=== PATIENT | female | born 1975 ===

== ENCOUNTER 2020-09-07 08:11 | Emergency (ER) | payer MEDICAID, SELFPAY ==
--- NOTE | ~2020-09-07 | XR_ITS ---
EXAMINATION: XR HAND, LEFT CLINICAL INFORMATION: Crush injury. COMPARISON: None TECHNIQUE: PA, lateral, and oblique views of the left hand. FINDINGS: Nondisplaced transverse fracture through the tuft of the distal phalanx second finger. There is soft tissue swelling. Underlying mild age-appropriate degenerative osteoarthritic changes of interphalangeal joints. XR/XR hand LT min 3V IMPRESSION: Nondisplaced hairline fracture of the distal tuft of the distal phalanx second finger. Surrounding soft tissue swelling.
[2020-09-07 08:56] VITALS: BP 124/71; PULSE 80; RESP 17; TEMP 36.5; O2SAT 98; BMI 25.0
--- NOTE | 2020-09-07 09:25 | ED_ITS ---
HPI - Extremity Problem General Chief complaint: Extremity Injury, Upper Stated complaint: FINGER INJ Time Seen by Provider: 09/07/20 08:21 Source: patient Mode of arrival: ambulatory Limitations: no limitations History of Present Illness HPI Narrative: States excellent jammed the distal 2nd finger of the left hand into her car door. Having slight swelling and pain at the tip of the finger. No open skin or laceration. This occurred yesterday at home. MD Complaint: extremity pain Location: left Relieving factors: immobilization Exacerbating factors: palpation Related Data Previous Rx's Medication Instructions Recorded ibuprofen 800 mg PO Q8H PRN #14 tab 09/07/20 Allergies Allergy/AdvReac Type Severity Reaction Status Date / Time Iodinated Contrast Media Allergy Intermediate RASH Verified 09/07/20 08:59 [IV CONTRAST] pollen extracts [POLLEN] Allergy Unknown ITCHY, Unverified 04/17/20 17:02 WATERY EYES, SNEEZING Review of Systems Review of Systems: Constitutional: No Weight loss, No Fever, No Chills, No Night Sweats, No Fatigue, No Malaise ENT/Mouth: No Hearing loss, No Ear Pain, No Nasal Congestion, No Sinus Pain, No Hoarseness, No sore throat, No Rhinorrhea, No Swallowing Difficulty Eyes: Negative Cardiovascular: Negative Respiratory: Negative Musculoskeletal: No joint pain, No Myalgias, No Joint Swelling, as noted per HPI Skin: No Skin Lesions, No rash Neuro: Negative Psych: No Social Issues Heme/Lymph: Negative Endocrine: Negative Yes all other systems are reviewed and are negative [facility] Past Medical History Medical History (Updated 09/07/20 @ 09:27 by Ga Romeo NP) Asthma Social History Social History Advance Directives: No Advance Directives Information Provided: No Physical Exam Vital Signs: Vital Signs: Last Vital Signs Temp 97.7 F 09/07/20 08:56 Pulse 80 09/07/20 08:56 Resp 17 09/07/20 08:56 BP 124/71 09/07/20 08:56 Pulse Ox 98 09/07/20 08:56 Body Mass Index 25.0 Reviewed Const: General: cooperative and healthy appearing; No acute distress or intoxicated appearing Nutritional Appearance: average body habitus Gabo entation/consciousness: patient oriented x3 Chest: Chest palpation & inspection: normal inspection of the chest Resp: Effort & Inspection: normal respiratory effort Auscultation: clear to auscultation bilaterally Cardio: Jugular venous distension: no JVD Rhythm: regular rhythm Heart sounds: S1 normal heart sound present and S2 normal heart sound present Skin: General skin exam: no rashes or lesions noted Neuro: General: patient oriented x3 Extrem: General: Yes normal to inspection Hand/finger images: 1. Slight ecchymosis to the dorsum and the palmar aspect of the finger. No open skin. No nail hematoma. Neurovascular intact. Cap refill less than 2 seconds. Full range of motion. Course Course Course Narrative: Finger splint applied MDM - Extremity (Nontraumatic) Imaging Data Hand x-ray: Radiologist's impression: [address] [id number] ReportSigned Patient: Alena Napier JMR#: [id number]: [id number]:[id number]/Sex: 45 / FADM Date: 09/07/20Loc: HO.EDAttending Dr: Ordering Physician: Suze Bedoya DO Date of Service: 09/07/20 Procedure(s): XR hand LT min 3V Accession Number(s): [id number] cc: Suze Bedoya DO~ EXAMINATION: XR HAND, LEFT CLINICAL INFORMATION: Crush injury. COMPARISON: None TECHNIQUE: PA, lateral, and oblique views of the left hand. FINDINGS: Nondisplaced transverse fracture through the tuft of the distal phalanx second finger. There is soft tissue swelling. Underlying mild age-appropriate degenerative osteoarthritic changes of interphalangeal joints. XR/XR hand LT min 3V IMPRESSION: Nondisplaced hairline fracture of the distal tuft of the distal phalanx second finger. Surrounding soft tissue swelling. Dictated By:TONE SOUZA MDSigned By:<Electronically signed by TONE SOUZA MD in OV>09/07/2056 DD/ 0TD/TT: Real Estate Administrator: Discharge Plan Discharge Clinical Impression: Closed fracture of tuft of distal phalanx of finger Patient Disposition: Home, Self-Care Instructions: Finger Fracture (ED) Additional Instructions: You have a small fracture to the bone directly to underneath the nail (distal toe off hairline fracture nondisplaced closed) Use finger splint for comfort for the next 2 weeks Follow-up with the hand doctor as discussed Return if any concerns or worsening symptoms Thank you Prescriptions: New ibuprofen 800 mg tablet 800 mg PO Q8H PRN (Reason: pain) Qty: 14 RF: 0 Referrals: [facility] [Primary Care Provider] - 1 week Merlyn Varela MD [Physician] - 1 week
== END 2020-09-07 09:38 | disposition home or self-care (01) ==
PROVIDERS: Emergency Provider Emergency Medicine
DX: S62.661A Nondisplaced fracture of distal phalanx of left index finger, initial encounter for closed fracture (principal); W23.1XXA Caught, crushed, jammed, or pinched between stationary objects, initial encounter; Y93.89 Activity, other specified; Y92.810 Car as the place of occurrence of the external cause; Y99.9 Unspecified external cause status
CPT/HCPCS: 29130; 73130; 99283

== ENCOUNTER 2020-11-12 07:29 | Emergency (ER) | payer MEDICAID, SELFPAY ==
--- NOTE | ~2020-11-12 | XR_ITS ---
EXAMINATION: XR CHEST CLINICAL INFORMATION: Cough, wheezing, asthma exacerbation COMPARISON: Chest radiographs 05/16/2019, 04/12/2019 TECHNIQUE: Portable upright AP view of the chest was obtained. FINDINGS: Patient is slightly rotated. There is no hyperinflation, pneumothorax, or pneumomediastinum. There is no lobar segmental airspace consolidation. Subtle coarsening of the bronchiolar markings is seen, greater right perihilar region. There is no lobar or segmental airspace consolidation or effusion. The heart is normal in size. The vascularity is normal. XR/XR chest 1V IMPRESSION: Coarsening bronchiolar markings greater right perihilar region. No lobar or segmental airspace consolidation or effusion.
[2020-11-12 09:27] VITALS: BP 155/95; PULSE 101; RESP 16; TEMP 36.5; O2SAT 99; BMI 26.6
--- NOTE | 2020-11-12 09:45 | ECG_ITS ---
Test Reason : DYSPNEA Blood Pressure : / mmHG Vent. Rate : 079 BPM Atrial Rate : 079 BPM P-R Int : 116 ms QRS Dur : 084 ms QT Int : 396 ms P-R-T Axes : 022 066 050 degrees QTc Int : 454 ms Normal sinus rhythm Normal ECG When compared with ECG of 21-JUL-2014 13:58, No significant change was found Referred By: Radha Scruggs Electronically Signed By:RENAN ANDERSEN
[2020-11-12 10:07] LABS: COVID-19 Test Negative (Negative); IDNOW Serial# 9DD0AD1C
[2020-11-12 10:13] LABS: MANUAL DIFF FLAG NO
[2020-11-12 10:15] LABS: Basophils Percent Auto 0.3 % (0-2); Eosinophils Absolute Auto 0.5 X10*3/uL (0.0-0.4); Eosinophils Percent Auto 5.8 % (0-4); Hematocrit 40.5 % (37-47); Hemoglobin 12.9 g/dl (12.0-16.0); Imm Gran Abs Auto 0.02 X10*3/uL (0.00-0.03); Imm Gran Pct Auto 0.3 % (0.0-0.4); Lymphocytes Percent Auto 26.1 % (20-40); Mean Corpuscular HGB Conc 31.9 g/dl (31.0-35.0); Mean Corpuscular Hemoglobin 29.3 pg (27.0-33.0); Mean Corpuscular Volume 91.8 fL (80-98); Mean Platelet Volume 10.1 fL (9.4-12.3); Monocytes Absolute Auto 0.5 X10*3/uL (0.1-1.2); Monocytes Percent Auto 6.8 % (2-11); Neutrophils Absolute Auto 4.7 X10*3/uL (2.0-8.3); Neutrophils Percent Auto 60.7 % (45-73); Platelet Count 284 X10*3/uL (160-400); Red Blood Count 4.41 X10*6/uL (4.20-5.50); Red Cell Distribution Width 13.2 % (11.0-16.0); White Blood Count 7.7 X10*3/uL (4.8-10.8)
[2020-11-12 10:21] LABS: Prothrombin Time 12.2 SEC (10.8-13.0)
[2020-11-12] MEDS: methylPREDNISolone Sod Succ 125 MG/2 ML VIAL IVPUSH (10:34)
[2020-11-12] MEDS: 0.9 % Sodium Chloride 1,000 ML 999 ML IVCONT (10:35)
[2020-11-12] MEDS: diphenhydrAMINE HCL 50 MG/ML VIAL IVPUSH (10:40)
[2020-11-12 10:43] LABS: Alanine Aminotransferase 13 U/L (0-31); Albumin Level 4.1 g/dL (3.5-5.0); Alkaline Phosphatase 68 U/L (39-117); Anion Gap 11 (12-20); Aspartate Amino Transferase 17 U/L (5-31); Bilirubin Total 0.6 mg/dL (0.0-1.0); Blood Urea Nitrogen 8 mg/dL (9-16); Calcium 8.7 mg/dL (8.4-10.2); Carbon Dioxide 26 mmol/L (22-29); Chloride 106 mmol/L (96-108); Creatinine Clr Calc Pharmacy 103.4; Estimated Glomerular Filt Rate > 60; Glucose Random 85 mg/dL (60-115); Potassium 3.8 mmol/L (3.3-5.1); Sodium 139 mmol/L (135-145); Total Protein 7.2 g/dL (6.5-8.0)
[2020-11-12 10:50] VITALS: BP 154/76; PULSE 99; RESP 22; O2SAT 100
--- NOTE | 2020-11-12 10:50 | PC.NURSE ---
pt very anxious, hives oberved to bilat cheeks when brought into room 21. pt refused remainder of benedryl, and any other meds. provider at bedside speaking with patient.
[2020-11-12] MEDS: Albuterol Sulfate (0.083%) 2.5 MG/3 ML VIAL.NEB 10 MG INHALE (11:03)
[2020-11-12] MEDS: Magnesium Sulfate/H2O 2 GM/50 ML PIGGYBACK IV (11:05)
[2020-11-12] MEDS: ondansetron HCL 4 MG/2 ML VIAL IVPUSH (11:06)
[2020-11-12 11:07] VITALS: PULSE 84; O2SAT 100
--- NOTE | 2020-11-12 11:10 | PC.NURSE ---
SOLUMEDROL 125MG ADMINISTERED APPROX. 3 MINUTES AFTER ADMINISTRATION +RED BLOTCHES APPEARED ON FACE AND PT C/O NAUSEA, 0.9% NS 1000 INFUSING WIDE OPEN, NO INCREASE IN RESPIRATORY EFFORT, SANDRA IBARRA UPDATED, DR RODRIGUEZ AT BEDSIDE, BENADRYL TO BE GIVEN, APPROX. 1/2 MED IV PUSH PT BECAME AGITATED STATED FELT LIKE SHE NEEDED TO PASS OUT, INCREASED NAUSEA, TRANSPORTED VIA WC TO MAIN ED RM 21, PT REFUSED FURTHER MEDS AT PRESENT TIME, REPORT TO VENKATESH HOPKINS
[2020-11-12 11:16] VITALS: BP 148/76; PULSE 77; RESP 18; O2SAT 100
--- NOTE | 2020-11-12 11:16 | PC.NURSE ---
extensive pt teaching done regarding epi, zofran, and mag. pt agrees to zofran and mag at this time. pt continues to refuse epi.
--- NOTE | 2020-11-12 12:02 | ED.ASTHMA ---
HPI - Asthma General Chief Complaint: Asthma Stated Complaint: ASTHMA Time Seen by Provider: 11/12/20 09:32 Source: patient Mode of arrival: ambulatory Limitations: no limitations History of Present Illness HPI Narrative: 45-year-old female With a past medical history of asthma, anxiety, depression and bipolar presenting to the ED with complaints of a dry cough with wheezing and chest tightness for the past week worse today. Reports that she was seen approximately 1 month ago by her PCP and was prescribed antibiotics and a course of steroids and she did improve mildly but never completely got better. Reports she has never been intubated. Denies any recent travel or sick contacts or any other symptoms complaints or concerns at this time. Patient reports she received 2 COVID vaccines and her last vaccine was October 13. complaint: asthma attack , shortness of breath and wheezing Onset (ago): week(s) (1 week worse today) Severity: severe and worse than usual Context: none known Associated symptoms: dry cough Asthma History: childhood onset and history of frequent attacks Treatments Prior to Arrival: inhaled bronchodilator Related Data Current Asthma Therapy: inhaled bronchodilator and recent oral steroid Previous Rx's Medication Instructions Recorded ibuprofen 800 mg PO Q8H PRN #14 tab 09/07/20 albuterol sulfate 0.63 mg INHALATION QID PRN #75 ml 11/12/20 albuterol sulfate 1 inh INHALATION QID PRN #8.5 g 11/12/20 azithromycin See Rx Instructions .ROUTE 11/12/20 .COMPLEX #6 tab codeine-guaifenesin [Guaifenesin 5 ml PO Q6H PRN #120 ml 11/12/20 AC] doxycycline monohydrate 100 mg PO BID 10 Days #20 cap 11/12/20 prednisone 60 mg PO DAILY 5 Days #15 tab 11/12/20 Allergies Allergy/AdvReac Type Severity Reaction Status Date / Time methylprednisolone Allergy Severe Hives Verified 11/12/20 12:17 [From Solu-Medrol] Iodinated Contrast Media Allergy Intermediate RASH Verified 09/07/20 08:59 [IV CONTRAST] pollen extracts [POLLEN] Allergy Unknown ITCHY, Unverified 04/17/20 17:02 WATERY EYES, SNEEZING Review of Systems Review of Systems: Constitutional : denies med noncompliance, no history of PE or DVT, denies recent travel, No Fever, No Chills ENT/Mouth : No Hoarseness, No sore throat, No Rhinorrhea Eyes: No Redness, No Discharge, No Vision Changes Cardiovascular : No Chest Pain, No SOB, No Dyspnea on Exertion, No Edema, no pleurisy, Respiratory : + Cough, + Wheeezing, No Sputum, no stridor, no hemoptysis, Gastrointestinal : No Nausea, No Vomiting, No Diarrhea, No abdominal Pain Genitourinary : No Dysuria, No Hematuria Musculoskeletal : No joint pain, No Myalgias Extremities: no extremity swelling /pain Skin : No rash, no itching, no swelling Neuro : No Weakness, No Numbness, No Headache Psych : No anxiety, depression Heme/Lymph: No Bruising, No Bleeding Endocrine : No Polyuria, No Polydipsia Yes all other systems are reviewed and are negative [facility] Past Medical History Attestation statement: The following information was validated with the patient. Medical History Asthma Surgical History Delivery by section Social History Social History Smoked in Last 30 Days: No Use of substances other than those prescribed or required for medical reasons: No Advance Directives: Yes Advance Directives Information Provided: Yes Advance Directives on File: No Physical Exam Vital Signs: Vital Signs: Last Vital Signs Temp 97.7 F 11/12/20 09:27 Pulse 77 11/12/20 11:16 Resp 18 11/12/20 11:16 BP 148/76 H 11/12/20 11:16 Pulse Ox 100 11/12/20 11:16 Body Mass Index 26.6 vital signs have been reviewed as normal and appeared to be correct. Blood pressure normal. Heart rate normal. Respiration rate normal. Temperature normal. Oxygen saturation normal. Appearance: Alert. Oriented X3. In acute respiratory distress. Head: Normal external exam. Normocephalic. Atraumatic. Eyes: PERRLA. EOMI. Conjunctiva and sclera normal. Eyelids normal. ENT: EAC normal. TM's Normal. Pharynx normal. Uvula midline. Moist mucous membranes. No trismus noted. No drooling noted. No muffled voice noted. Neck: Normal inspection. Neck supple. FROM. No adenopathy. Thyroid Normal. No meningeal signs. No neck mass noted. CVS: Normal heart rate and rhythm. Heart sound normal. No murmurs noted. Pulses normal throughout. Respiratory: In acute respiratory distress with decreased breath sounds with wheezes anterior and posterior noted throughout diffusely. No rhonchi/rales noted. Patient noted to have accessory muscle usage in tracheal tugging. No retractions noted. Patient states pain with inspiration. Chest nontender. Abdomen: Soft and nontender. Bowel sounds normal in all 4 quadrants. No distention noted. No organomegaly noted. No visible injury noted. Back: Full range of motion noted. Skin: Skin warm and dry. Normal skin color. Normal skin turgor. No rashes/lesions/lacerations noted. Extremities: No lower extremity edema. No calf tenderness noted bilaterally. Extremities exhibit normal range of motion. Extremities nontender. Neuro: Oriented X 3. No motor deficit. No sensory deficit. Reflexes normal. Course Course Course Narrative: 12:15pm - Patient was given 125 mg of IV Solu-Medrol after her labs were obtained and she developed hives/welts all over her face. Therefore she was transferred to the main ED and placed on a classroom monitor and she was given 50 mg of Benadryl, 4 mg of Zofran and 2 mg of magnesium and she received the albuterol treatment although she refused the epi. - At this time patient's labs are within normal limits. COVID swab negative. Chest x-ray negative for pneumonia or any other acute processes. - lung exam is now clear to auscultation patient has hives/welts completely resolved. She does not have any drooling or trismus noted. - patient can safely be discharged at this time with instructions to return if any new or worsening symptoms Solu-Medrol was added to her allergy list and instructions to follow-up with her primary care provider for further evaluation and treatment. Patient understands agrees with this plan. MDM - Asthma Medical Records Attestation: I reviewed the patient's medical records. Medical records narrative: 45-year-old female with a past medical history of asthma presenting to the ED with a dry cough/wheezing/chest tightness over the past week worse today. Was recently treated with antibiotics and steroids approximately 1 month ago. Recently vaccinated with 2 doses of COVID vaccine last dose was October 13. - on exam patient is alert and oriented x3 and acute respiratory distress with accessory muscle usage, tracheal tugging and decreased breath sounds with diffuse wheezing throughout. CV RRR. Although oxygen saturation is 99-100% on room air and all other vitals are within normal limits. Abdomen is soft and nontender. No lower extremity noted or pitting edema or calf tenderness noted. - Concern for asthma exacerbation vs bronchitis vs PNA vs COVID - Plan: Labs, CXR, EKG. Provide a breathing treatment hour long, 125 mg of IV Solu-Medrol, 2 g of magnesium and re-evaluate. Lab Data Attestation: I reviewed the patient's lab results. Result diagrams: 11/12/20 10:03 11/12/20 10:03 Labs: Lab Results 11/12/20 11/12/20 11/12/20 Range/Units 09:44 10:03 10:03 WBC 7.7 (4.8-10.8) X10*3/uL RBC 4.41 (4.20-5.50) X10*6/uL Hgb 12.9 (12.0-16.0) g/dl Hct 40.5 (37-47) % MCV 91.8 (80-98) fL MCH 29.3 (27.0-33.0) pg MCHC 31.9 (31.0-35.0) g/dl RDW 13.2 (11.0-16.0) % Plt Count 284 (160-400) X10*3/uL MPV 10.1 (9.4-12.3) fL Immature Gran % (Auto) 0.3 (0.0-0.4) % Neut % (Auto) 60.7 (45-73) % Lymph % (Auto) 26.1 (20-40) % Piatt % (Auto) 6.8 (2-11) % Eos % (Auto) 5.8 H (0-4) % Baso % (Auto) 0.3 (0-2) % Lymph # (Auto) 2.0 (1.2-4.9) X10*3/uL Piatt # (Auto) 0.5 (0.1-1.2) X10*3/uL Eos # (Auto) 0.5 H (0.0-0.4) X10*3/uL Baso # (Auto) 0.0 (0.0-0.2) X10*3/uL Abs Immat Gran (auto) 0.02 (0.00-0.03) X10*3/uL Absolute Neuts (auto) 4.7 (2.0-8.3) X10*3/uL Absolute Nucleated RBC 0.000 (0.0-0.012) X10*3/uL Nucleated RBC % (auto) 0.0 (0.0-0.2) /100WBC Hold Purple Top PT 12.2 (10.8-13.0) SEC INR 1.0 (0.9-1.1) Sodium (135-145) mmol/L Potassium (3.3-5.1) mmol/L Chloride (96-108) mmol/L Carbon Dioxide (22-29) mmol/L Anion Gap (12-20) BUN (9-16) mg/dL Creatinine (0.5-1.4) mg/dL Estim Creat Clear Calc Estimated GFR Random Glucose (60-115) mg/dL Calcium (8.4-10.2) mg/dL Magnesium (1.6-2.6) mg/dL Total Bilirubin (0.0-1.0) mg/dL AST (5-31) U/L ALT (0-31) U/L Alkaline Phosphatase (39-117) U/L Total Protein (6.5-8.0) g/dL Albumin (3.5-5.0) g/dL COVID-19 ([facility]) Negative (Negative) COVID-19 Clin Com See Note 11/12/20 11/12/20 Range/Units 10:03 10:05 WBC (4.8-10.8) X10*3/uL RBC (4.20-5.50) X10*6/uL Hgb (12.0-16.0) g/dl Hct (37-47) % MCV (80-98) fL MCH (27.0-33.0) pg MCHC (31.0-35.0) g/dl RDW (11.0-16.0) % Plt Count (160-400) X10*3/uL MPV (9.4-12.3) fL Immature Gran % (Auto) (0.0-0.4) % Neut % (Auto) (45-73) % Lymph % (Auto) (20-40) % Piatt % (Auto) (2-11) % Eos % (Auto) (0-4) % Baso % (Auto) (0-2) % Lymph # (Auto) (1.2-4.9) X10*3/uL Piatt # (Auto) (0.1-1.2) X10*3/uL Eos # (Auto) (0.0-0.4) X10*3/uL Baso # (Auto) (0.0-0.2) X10*3/uL Abs Immat Gran (auto) (0.00-0.03) X10*3/uL Absolute Neuts (auto) (2.0-8.3) X10*3/uL Absolute Nucleated RBC (0.0-0.012) X10*3/uL Nucleated RBC % (auto) (0.0-0.2) /100WBC Hold Purple Top SEE NOTE PT (10.8-13.0) SEC INR (0.9-1.1) Sodium 139 (135-145) mmol/L Potassium 3.8 (3.3-5.1) mmol/L Chloride 106 (96-108) mmol/L Carbon Dioxide 26 (22-29) mmol/L Anion Gap 11 L (12-20) BUN 8 L (9-16) mg/dL Creatinine 0.72 (0.5-1.4) mg/dL Estim Creat Clear Calc 103.4 Estimated GFR > 60 Random Glucose 85 (60-115) mg/dL Calcium 8.7 (8.4-10.2) mg/dL Magnesium 2.0 (1.6-2.6) mg/dL Total Bilirubin 0.6 (0.0-1.0) mg/dL AST 17 (5-31) U/L ALT 13 (0-31) U/L Alkaline Phosphatase 68 (39-117) U/L Total Protein 7.2 (6.5-8.0) g/dL Albumin 4.1 (3.5-5.0) g/dL COVID-19 ([facility]) (Negative) COVID-19 Clin Com Imaging Data Chest x-ray: Attestation: I personally reviewed and interpreted this imaging study as follows: Radiologist's impression: FINDINGS: Patient is slightly rotated. There is no hyperinflation, pneumothorax, or pneumomediastinum. There is no lobar segmental airspace consolidation. Subtle coarsening of the bronchiolar markings is seen, greater right perihilar region. There is no lobar or segmental airspace consolidation or effusion. The heart is normal in size. The vascularity is normal. XR/XR chest 1V IMPRESSION: Coarsening bronchiolar markings greater right perihilar region. No lobar or segmental airspace consolidation or effusion. ECG Data Attestation: I personally reviewed and interpreted this ECG as follows: ECG interpretation date: 11/12/20 ECG interpretation time: 09:46 Interpretation: Normal sinus rhythm with a ventricular rate of 79 with a normal MN interval normal QRS duration normal QT/QTC interval. No acute ischemic changes noted. Similar compared to prior EKG 07/21/2014 Critical Care Time Critical Care Time Critical Care Time: Yes Total Critical Care Time: 60 Attestation: I personally attest to this time spent taking care of the patient Discharge Plan Discharge Clinical Impression: Asthma with acute exacerbation, Acute bronchitis with bronchospasm, Allergic reaction Patient Disposition: Home, Self-Care Instructions: Anaphylaxis (ED), Allergies (ED), Allergy Testing (ED) Additional Instructions: You had an allergic reaction to an IV steroid called Solu-Medrol you should not have this IV steroid again. Please keep a list of this on you. Return if any new or worsening symptoms. Follow up with her primary care provider for allergy referral testing. Prescriptions: New albuterol sulfate 0.63 mg/3 mL solution for nebulization 0.63 mg inhalation QID PRN (Reason: shortness of breath or wheezing) Qty: 75 RF: 0 azithromycin 250 mg tablet See Rx Instructions .ROUTE .COMPLEX Qty: 6 RF: 0 prednisone 20 mg tablet 60 mg PO DAILY 5 Days Qty: 15 RF: 0 doxycycline monohydrate 100 mg capsule 100 mg PO BID 10 Days Qty: 20 RF: 0 codeine-guaifenesin [Guaifenesin AC] 10-100 mg/5 mL liquid 5 ml PO Q6H PRN (Reason: cold symptoms) Qty: 120 RF: 0 albuterol sulfate 90 mcg/actuation HFA aerosol inhaler 1 inh inhalation QID PRN (Reason: shortness of breath or wheezing) Qty: 8.5 RF: 0 No Action ibuprofen 800 mg tablet 800 mg PO Q8H PRN (Reason: pain) Qty: 14 RF: 0 Referrals: Physician,Unknown [Primary Care Provider] - 1 day (your pcp) Print Language: Arabic
[2020-11-12 12:44] LABS: HCG Quantitative < 2 mIU/mL
[2020-11-12 14:00] VITALS: BP 104/71; PULSE 98; RESP 18; O2SAT 98
== END 2020-11-12 14:09 | disposition home or self-care (01) ==
PROVIDERS: Physician Assistant Medical; Emergency Provider Emergency Medicine Emergency Medical Services
DX: J45.901 Unspecified asthma with (acute) exacerbation (principal); J20.9 Acute bronchitis, unspecified; L50.9 Urticaria, unspecified; T38.0X5A Adverse effect of glucocorticoids and synthetic analogues, initial encounter; Y92.238 Other place in hospital as the place of occurrence of the external cause; Z20.822 Contact with and (suspected) exposure to COVID-19
CPT/HCPCS: 36415; 71045; 80053; 83735; 84702; 85025; 85610; 87635; 93005; 94640; 94644; 96361; 96365; 96372; 96375; 99285; 99291; J1200; J2405; J2930; J3475

== ENCOUNTER 2021-08-06 09:17 | Outpatient (REF) | payer MEDICAID, SELFPAY ==
--- NOTE | ~2021-08-06 | MM_ITS ---
EXAMINATION: MM SCREENING DIGITAL BREAST TOMOSYNTHESIS, BILATERAL CLINICAL INFORMATION: Screening. Asymptomatic. The lifetime risk of breast cancer based on the Tyrer-Cuzick Model is 7.4%. COMPARISON: Mammography: August 31, 2019 and studies dating back to July 13, 2013 TECHNIQUE: Digital breast tomosynthesis is performed in both the craniocaudal and mediolateral oblique views along with computer-aided detection (CAD). Synthesized 2D images are generated from the tomosynthesis. FINDINGS: The breasts are heterogeneously dense, which may obscure small masses (ACR BI-RADS breast composition Category c). There are no significant masses, abnormal calcifications, or other abnormalities. MM/MM tomosynthesis screening BI IMPRESSION: There are no significant changes from prior study. ASSESSMENT: BI-RADS 1: Negative RECOMMENDATION: Routine annual mammography screening. This patient's information was entered into a reminder system with a target due date for their next mammogram.
== END 2021-08-06 09:18 | disposition home or self-care (01) ==
LOC: HO.MAMMO 09:17
PROVIDERS: Visit Provider Advanced Practice Midwife
DX: Z12.31 Encounter for screening mammogram for malignant neoplasm of breast (principal)
CPT/HCPCS: 77063; 77067

== ENCOUNTER → 2021-11-26 14:17 | Outpatient (BNVA) | payer MEDICAID, SELFPAY | PROVIDERS: PCP General Practice; Visit Provider Surgery Vascular Surgery | DX: I83.11 Varicose veins of right lower extremity with inflammation (principal) | CPT/HCPCS: 99202 ==

== ENCOUNTER 2022-01-11 10:48 | Outpatient (REF) | payer MEDICAID, SELFPAY ==
--- NOTE | ~2022-01-11 | US_ITS ---
EXAMINATION: RIGHT and LEFT LOWER EXTREMITY VENOUS ULTRASOUND (Reflux Exam) CLINICAL INDICATION: leg pain and varicose veins. COMPARISON: None. TECHNIQUE: Color flow triplex imaging and compression Doppler was performed to evaluate both the deep and the superficial systems bilaterally. To evaluate the superficial system, the examination was performed in the upright position. Color-flow Doppler ultrasound and compression ultrasound were utilized. In addition, maneuvers were utilized to demonstrate reflux. FINDINGS: 1. DEEP VENOUS ULTRASOUND OF THE RIGHT LOWER EXTREMITY: Respiratory variation, normal compression and augmented flow are noted in the right common femoral vein as well as the right popliteal vein and there is no evidence of deep venous thrombosis at these locations. There is no evidence of reflux in the deep system in either the common femoral vein or the popliteal vein. There is no evidence of a Turner's cyst. 2. SUPERFICIAL ULTRASOUND WITH DOPPLER OF RIGHT LOWER EXTREMITY: The right great saphenous vein at the saphenofemoral junction measures 6 mm, at the mid thigh 2 mm, [id number] 4 mm, [id number] 4 mm, at mid calf 2 mm and at the ankle measures 2 mm. There is no reflux demonstrated in the right great saphenous vein. The right small saphenous vein measures 1-2 mm and shows no reflux. There are perforators in the mid thigh and calf that measure 2 mm and do not demonstrate reflux. There are varicosities in the right leg all measuring less than 3 mm without reflux. 3. DEEP VENOUS ULTRASOUND OF THE LEFT LOWER EXTREMITY: Respiratory variation, normal compression and augmented flow are noted in the left common femoral vein as well as the left popliteal vein and there is no evidence of deep venous thrombosis at these locations. There is no evidence of reflux in the deep system in either the common femoral vein or the popliteal vein. . There is no evidence of a Turner's cyst. 4. SUPERFICIAL ULTRASOUND WITH DOPPLER OF LEFT LOWER EXTREMITY: Left great saphenous vein at the saphenofemoral junction measures 6 mm, at the mid thigh 3 mm, [id number] 3 mm, [id number]-[id number] 3 mm, at mid calf 2 mm and at the ankle measures 2 mm. There is reflux demonstrated in the left great saphenous vein measuring 1 second in the proximal and mid thigh. There is an accessory lateral greater saphenous vein that measures 2 to 3 mm and does not demonstrate reflux. The left small saphenous vein measures 1-2 mm and shows no reflux. There is a spinner open end in the mid thigh that measures 3 mm and demonstrates 1.3 seconds reflux. There is a varicosity in the mid thigh that measures 3 mm and does not demonstrate reflux. US/US venous duplex LE BI IMPRESSION: Right: No DVT. No deep venous reflux. No right greater saphenous vein reflux. Left: No DVT. No deep venous reflux. Left greater saphenous vein reflux measuring 1 second in the proximal and mid thigh. Piggery Worker measuring 3 mm in the mid thigh demonstrating 1.3 seconds reflux.
== END 2022-01-11 10:49 | disposition home or self-care (01) ==
LOC: HO.US 10:48
PROVIDERS: PCP General Practice; Visit Provider Surgery Vascular Surgery
DX: I83.11 Varicose veins of right lower extremity with inflammation (principal)
CPT/HCPCS: 93970

== ENCOUNTER → 2022-01-19 10:58 | Outpatient (BNVA) | payer MEDICAID, SELFPAY | PROVIDERS: PCP General Practice; Visit Provider Surgery Vascular Surgery | DX: I83.12 Varicose veins of left lower extremity with inflammation (principal) | CPT/HCPCS: 99212 ==

== ENCOUNTER → 2022-01-22 12:42 | Outpatient (BNVA) | payer MEDICAID, SELFPAY | PROVIDERS: PCP General Practice; Visit Provider Surgery Vascular Surgery | DX: I83.12 Varicose veins of left lower extremity with inflammation (principal) | CPT/HCPCS: 36475 ==

== ENCOUNTER 2022-01-25 14:18 | Outpatient (REF) | payer MEDICAID, SELFPAY ==
--- NOTE | ~2022-01-25 | US_ITS ---
EXAMINATION: US VENOUS ULTRASOUND WITH DOPPLER LOWER EXTREMITY, LEFT CLINICAL INFORMATION: Pain left leg COMPARISON: None TECHNIQUE: Ultrasound of the deep veins is performed from the hip to the calf with compression sonography and color and pulse Doppler assessment. Spectral analysis with color-flow imaging is performed. FINDINGS: There is normal venous compression and respiratory variation and augmented flow. The visualized common femoral vein, superficial femoral vein, profunda femoral vein, popliteal vein, and the trifurcation region shows no evidence of deep venous thrombosis. There is no significant popliteal fossa cyst. There are benign lymph nodes in the left groin and proximal thigh. If the patient's symptoms persist, followup ultrasound in 5 days 7 days might be of value to exclude proximal propagation from a non-visualized calf vein. US/US venous duplex LE LT IMPRESSION: No DVT demonstrated in the left lower extremity.
== END 2022-01-25 14:19 | disposition home or self-care (01) ==
LOC: HO.US 14:18
PROVIDERS: Visit Provider Surgery Vascular Surgery
DX: M79.605 Pain in left leg (principal)
CPT/HCPCS: 93971

== ENCOUNTER → 2022-02-04 10:59 | Outpatient (BNVA) | payer MEDICAID, SELFPAY | PROVIDERS: PCP General Practice; Visit Provider Surgery Vascular Surgery | DX: I83.11 Varicose veins of right lower extremity with inflammation (principal) | CPT/HCPCS: 99212 ==

== ENCOUNTER 2022-08-19 09:17 | Outpatient (REF) | payer MEDICAID, SELFPAY ==
--- NOTE | ~2022-08-19 | MM_ITS ---
EXAMINATION: MM SCREENING DIGITAL BREAST TOMOSYNTHESIS, BILATERAL CLINICAL INFORMATION: Screening. Asymptomatic. The lifetime risk of breast cancer based on the Tyrer-Cuzick Model is 7%. COMPARISON: Mammography: 08/06/2021 and studies dating back to 07/13/2013. TECHNIQUE: Digital breast tomosynthesis is performed in both the craniocaudal and mediolateral oblique views along with computer-aided detection (CAD). Synthesized 2D images are generated from the tomosynthesis. FINDINGS: The breasts are heterogeneously dense, which may obscure small masses (ACR BI-RADS breast composition Category c). There is a stable parenchymal pattern of the right breast with no new abnormal dominant masses or suspicious grouping of microcalcifications identified. About the inferior medial aspect of the left breast approximately 7 cm from the nipple there is an oval circumscribed density measuring approximately 9 mm in diameter. In the anterior retroareolar region of the left breast there is a density measuring 1.6 cm in length lying approximately 4 cm from the nipple. Spot compression views and ultrasound recommended for further evaluation. MM/MM tomosynthesis screening BI IMPRESSION: Two left breast masses for further evaluation as described. ASSESSMENT: BI-RADS 0: Incomplete - Need Additional Imaging Evaluation RECOMMENDATION: 1. Additional views of the left breast. 2. Targeted ultrasound if warranted after review of the additional views. 3. Radiology department staff will contact the patient for additional imaging. This patient's information was entered into a reminder system with a target due date for their next mammogram.
== END 2022-08-19 09:18 | disposition home or self-care (01) ==
LOC: HO.MAMMO 09:17
PROVIDERS: PCP General Practice; Visit Provider Advanced Practice Midwife
DX: Z12.31 Encounter for screening mammogram for malignant neoplasm of breast (principal)
CPT/HCPCS: 77063; 77067

== ENCOUNTER 2022-09-09 14:36 | Outpatient (REF) | payer MEDICAID, SELFPAY ==
--- NOTE | ~2022-09-09 | MM_ITS ---
EXAMINATION: MM DIAGNOSTIC DIGITAL BREAST TOMOSYNTHESIS, LEFT US BREAST LIMITED, LEFT CLINICAL INFORMATION: Circumscribed densities left breast. COMPARISON: Mammography: 08/19/2022 and studies dating back to 03/10/2016. TECHNIQUE: Digital breast tomosynthesis is performed. 2D images are generated from the tomosynthesis. The following views are obtained: Spot compression views of the left breast in craniocaudal and mediolateral oblique projections. FINDINGS: The breasts are heterogeneously dense, which may obscure small masses (ACR BI-RADS breast composition Category c). About the inferior and medial aspect of the left breast there is a persistent circumscribed approximately 1.3 x 0.9 x 1.0 cm density. About the anterior central aspect of the left breast there is a 1.5 x 1.3 cm partially circumscribed density with some smaller adjacent circumscribed densities being present. Targeted ultrasound demonstrates at the 10 o'clock position 1 cm from the nipple a minimally complex cyst without internal vascularity and with distal sound enhancement. This measures approximately 1.6 x 1.0 x 1.0 cm in size. There are some adjacent prominent ducts. At the 8 o'clock position 7 cm from nipple there is a solid hypoechoic mass which is well circumscribed without distal sound shadowing. The lesion is wider than it is tall. It measures approximately 1.1 x 0.8 x 0.6 cm in size. No internal vascularity was appreciated. Ultrasound-guided core biopsy is recommended. Results are discussed with the patient at time of visit. Breast center patient navigator called above recommendation to referring provider's office. MM/MM tomosynthesis added views L IMPRESSION: Solid mass 8 o'clock position 7 cm from the nipple within the left breast for which ultrasound-guided core biopsy is recommended. ASSESSMENT: BI-RADS 4: Suspicious (subcategory 4A: Low suspicion for malignancy) RECOMMENDATION: Ultrasound-guided core biopsy. This patient's information was entered into a reminder system with a target due date for their next mammogram.
== END 2022-09-09 14:37 | disposition home or self-care (01) ==
LOC: HO.MAMMO 14:36
PROVIDERS: PCP General Practice; Visit Provider Advanced Practice Midwife
DX: R92.2 Inconclusive mammogram (principal)
CPT/HCPCS: 76642; 77061; 77065

== ENCOUNTER 2022-09-15 09:13 | Outpatient (REF) | payer MEDICAID, SELFPAY ==
--- NOTE | ~2022-09-15 | MM_ITS ---
EXAMINATION: ULTRASOUND GUIDED CORE BIOPSY BREAST, LEFT POST PROCEDURE DIGITAL MAMMOGRAM, LEFT CLINICAL INFORMATION: Circumscribed oval nodule mid medial left breast 1.1 cm. COMPARISON: Mammography and targeted left breast ultrasound 09/09/2022. FINDINGS: Proper informed consent is obtained from the patient after discussion of the procedure, potential risks and complications, and alternatives. Patient was given an opportunity for questions. The patient appeared to understand. The patient consented to the procedure and signed the consent form. GUIDANCE: Ultrasound-guided; aseptic technique. LESION: Circumscribed oval nodule mid medial left breast, 1.1 cm (fibroadenoma, apocrine metaplasia, persistent, or other). APPROACH: Medial lateral. ANESTHESIA: 15 mL carbonated 1% lidocaine. DERMATOTOMY: Single skin yasmeen dermatotomy performed. NEEDLE: 14-gauge Achieve core biopsy device with 13.5-gauge co-axial guide needle. CORES: 5. CLIP: HydroMARK; shape: open coil. POST PROCEDURE UNILATERAL DIGITAL MAMMOGRAM: The post biopsy mammogram is performed in separate room using separate digital mammography equipment from the biopsy procedure. CC and ML views are obtained. The breasts are heterogeneously dense, which may obscure small masses (breast composition category: c). The clip marker is in position, corresponding to finding on recent mammography. No gross hematoma. The patient tolerated the procedure well. No immediate complications. Home instructions reviewed with the patient. Final pathology results are pending. MM/MM diagnostic mammo unilat LT IMPRESSION: 1. Status post ultrasound-guided core biopsy left breast. 2. Clip placed: HydroMARK; shape: open coil. 3. Pathology pending. An addendum report will be issued.
[2022-09-15] MEDS: Lidocaine HCl 1 % 20 ML VIAL 9 ML SUBCUT (11:20)
[2022-09-15] MEDS: Sodium Bicarbonate 8.4% 50 MEQ/50 ML VIAL SUBCUT (11:22)
== END 2022-09-15 09:14 | disposition home or self-care (01) ==
LOC: HO.MAMMO 09:13
PROVIDERS: PCP General Practice; Visit Provider Surgery
DX: N63.24 Unspecified lump in the left breast, lower inner quadrant (principal)
CPT/HCPCS: 19083; 77062; 77065; 88305; 99202; A4648

== ENCOUNTER → 2022-09-23 15:03 | Outpatient (BNVA) | payer MEDICAID, SELFPAY | PROVIDERS: PCP General Practice; Visit Provider Surgery | DX: N63.24 Unspecified lump in the left breast, lower inner quadrant (principal) | CPT/HCPCS: 99212 ==

== ENCOUNTER 2022-11-09 12:47 | Emergency (ER) | payer MEDICAID, SELFPAY ==
--- NOTE | ~2022-11-09 | XR_ITS ---
EXAMINATION: XR CHEST CLINICAL INFORMATION: Shortness of breath COMPARISON: October 2020. TECHNIQUE: Portable frontal view of the chest was obtained. 1310 hours. FINDINGS: No airspace consolidation or vascular congestion noted. Minimal linear atelectasis noted toward the left base. Pleural surfaces appear to be clear. XR/XR chest 1V IMPRESSION: Minimal linear atelectasis toward the left base. No dominant consolidations or vascular congestion.
--- NOTE | ~2022-11-09 | US_ITS ---
EXAMINATION: US ABDOMEN LIMITED CLINICAL INFORMATION: Epigastric/right upper quadrant tenderness. COMPARISON: None available. TECHNIQUE: Real-time imaging of the right upper quadrant abdominal viscera. Exam is limited due to bowel gas. FINDINGS: PANCREAS: Not well visualized due to bowel gas LIVER: Normal. The liver is normal in size. The liver contour is normal. Parenchymal echogenicity is normal. No focal hepatic lesion. There is no intrahepatic biliary duct dilatation seen. GALLBLADDER: The gallbladder is contracted. The patient has recently eaten. No gallstones are seen. The gallbladder wall is slightly thickened measuring 4 mm. This may be due to gallbladder being contracted.. COMMON BILE DUCT: Normal in caliber measuring 0.4 cm in diameter. RIGHT KIDNEY: There may be a small extrarenal pelvis. No hydronephrosis. No renal calculi or focal parenchymal lesions. The kidney measures 10.5 cm in maximum dimension. FREE FLUID: None. US/US abdomen limited IMPRESSION: Limited exam as the patient is recently. Contracted gallbladder. Pancreas not seen.
--- NOTE | 2022-11-09 12:51 | ED_ITS ---
HPI - General Adult General Chief complaint: Asthma <SANDRA Lyons - Last Filed: 11/09/22 12:57> Stated complaint: abd pain <SANDRA Lyons - Last Filed: 11/09/22 12:57> Time Seen by Provider: 11/09/22 15:07 <SANDRA Lyons - Last Filed: 11/09/22 12:57> Source: patient <SANDRA Cespedes - Last Filed: 11/09/22 17:44> Mode of arrival: ambulatory <SANDRA Cespedes - Last Filed: 11/09/22 17:44> Limitations: no limitations <SANDRA Cespedes Last Filed: 11/09/22 17:44> History of Present Illness HPI narrative: Patient is a 47 year old assigned female at with a history of depression and asthma presenting to the emergency department today with a cough and wheezing. Patient states that she has been having persistent cough and wheezing. Patient denies any dizziness, lightheadedness, abdominal pain, nausea, vomiting, fever, chills, blurry vision, double vision, loss of vision, chest pain, back pain, night sweats, pain with urination, increased urinary frequency, increased urinary urgency, blood in her urine or stool, syncope or a near syncopal episode, recent trauma or falls, bowel incontinence, bladder incontinence, bowel retention, bladder retention, or any other complaints at this time. <SANDRA Cespedes - Last Filed: 11/09/22 17:44> Onset (ago): week(s) (1) <SANDRA Cespedes - Last Filed: 11/09/22 17:44> Severity: mild <SANDRA Cespedes - Last Filed: 11/09/22 17:44> Severity scale (1-10): 1 <SANDRA Cespedes Last Filed: 11/09/22 17:44> Relieving factors: none <SANDRA Cespedes Last Filed: 11/09/22 17:44> Exacerbating factors: none <SANDRA Cespedes Last Filed: 11/09/22 17:44> Associated symptoms: cough <SANDRA Cespedes Last Filed: 11/09/22 17:44> Treatments prior to arrival: none <SANDRA Cespedes Last Filed: 11/09/22 17:44> Related Data Home medications: Home Medications Medication Instructions Recorded Confirmed levothyroxine 25 mcg tablet 25 mcg PO DAILY 09/15/22 09/23/22 (Synthroid) metoprolol succinate 25 mg capsule 25 mg PO DAILY 09/15/22 09/23/22 sprinkle, ext. release 24 hr Previous Rx's Medication Instructions Recorded ibuprofen 800 mg tablet 800 mg PO Q8H PRN pain #14 tabs 09/07/20 albuterol sulfate 0.63 mg/3 mL 0.63 mg (3 mL) inhalation QID PRN 11/12/20 solution for nebulization shortness of breath or wheezing #75 mL albuterol sulfate 90 mcg/actuation 1 inh inhalation QID PRN shortness 11/12/20 aerosol inhaler of breath or wheezing #8.5 grams albuterol sulfate 90 mcg/actuation 1 inh inhalation QID PRN shortness 11/09/22 aerosol inhaler of breath or wheezing #8.5 grams doxycycline hyclate 100 mg tablet 100 mg PO BID 7 days #14 tabs 11/09/22 prednisone 20 mg tablet 20 mg PO DAILY 7 days #7 tabs 11/09/22 <SANDRA Lyons Last Filed: 11/09/22 12:57> Allergies/adverse reactions: Allergies Allergy/AdvReac Type Severity Reaction Status Date / Time methylprednisolone Allergy Severe Hives Verified 11/09/22 12:54 [From Solu-Medrol] Iodinated Contrast Media Allergy Intermediate RASH Verified 11/09/22 12:54 [IV CONTRAST] pollen extracts [POLLEN] Allergy Unknown ITCHY, Verified 11/09/22 12:54 WATERY EYES, SNEEZING <SANDRA Lyons Last Filed: 11/09/22 12:57> Review of Systems Constitutional: Constitutional: Reports no additional constitutional complaints, Denies chills, Denies fever(s) and Denies night sweats <SANDRA Cespedes - Last Filed: 11/09/22 17:44> Eyes: Eyes: Reports no additional eye complaints, Denies blurry vision, Denies change in vision, Denies diplopia, Denies eye discharge, Denies loss of vision and Denies eye pain <SANDRA Cespedes Last Filed: 11/09/22 17:44> ENT: Denies dizziness <SANDRA Cespedes Last Filed: 11/09/22 17:44> Cardiovascular: Cardiovascular: Reports no additional cardiovascular complaints, Denies chest pain, Denies lightheadedness and Denies Loss of Consciousness <SANDRA Cespedes Last Filed: 11/09/22 17:44> Respiratory: Respiratory: Reports no additional respiratory complaints, Reports cough and Reports wheezing <SANDRA Cespedes - Last Filed: 11/09/22 17:44> Gastrointestinal: Gastrointestinal: Reports no additional gastrointestinal complaints, Denies abdominal pain, Denies melena, Denies hematochezia, Denies change in bowel habits and Denies change in stool character <SANDRA Cespedes Last Filed: 11/09/22 17:44> Genitourinary: Genitourinary: Denies hematuria, Denies urinary frequency, Denies dysuria, Denies urinary incontinence, Denies urinary hesitancy and Denies urinary urgency <SANDRA Cespedes Last Filed: 11/09/22 17:44> Musculoskeletal: Musculoskeletal: Reports no additional musculoskeletal complaints, Denies numbness and Denies tingling <SANDRA Cespedes Last Filed: 11/09/22 17:44> Neurologic: Denies dizziness, Denies loss of vision, Denies numbness and Denies tingling <SANDRA Cespedes Last Filed: 11/09/22 17:44> Psychiatric: Psychiatric: Reports no additional psychiatric complaints <SANDRA Cespedes Last Filed: 11/09/22 17:44> Endocrine: Endocrine: Reports no additional endocrine complaints <SANDRA Cespedes Last Filed: 11/09/22 17:44> Hematologic/Lymphatic: Hematologic/Lymphatic: Reports no additional hematologic/lymphatic complaints <SANDRA Cespedes Last Filed: 11/09/22 17:44> Allergic/Immunologic: Allergic/Immunologic: Reports no additional allergic/immunologic complaints and Reports wheezing <SANDRA Cespedes Last Filed: 11/09/22 17:44> PMFSH Past Medical History Attestation statement: The following information was validated with the patient. <SANDRA Cespedes - Last Filed: 11/09/22 17:44> Source: old records reviewed and nursing notes reviewed <SANDRA Cespedes - Last Filed: 11/09/22 17:44> Medical History: Medical History Asthma Mass of breast, left <SANDRA Lyons - Last Filed: 11/09/22 12:57> Surgical History: Surgical History Delivery by section <SANDRA Lyons - Last Filed: 11/09/22 12:57> Family History Family History: Family History Maternal Grandmother Colon cancer Maternal Uncle Prostate cancer <SANDRA Lyons - Last Filed: 11/09/22 12:57> Social History Social History: Social History Alcohol intake: current Alcohol intake frequency: holidays/special occasions only Patient Tobacco Use Status: Former Tobacco user Tobacco use type: Cigarette Years Smoked: stopped 3 years ago Smoked in Last 30 Days: No Use of substances other than those prescribed or required for medical reasons: No Advance Directives: No Advance Directives Information Provided: Yes <SANDRA Lyons - Last Filed: 11/09/22 12:57> Physical Exam ED Vital Signs: Vital Signs - 24 hr 11/09/22 12:52 11/09/22 14:26 11/09/22 14:45 Temperature 99.3 F 98.0 F Pulse Rate 117 H 83 100 Respiratory Rate 20 16 20 Blood Pressure 161/89 H 126/78 Pulse Oximetry 97 100 Oxygen Delivery Method Room Air Room Air 11/09/22 17:04 11/09/22 17:14 Temperature 97.2 F Pulse Rate 87 78 Respiratory Rate 18 20 Blood Pressure 129/60 Pulse Oximetry 100 Oxygen Delivery Method Room Air BMI result Body Mass Index 26.9 <SANDRA Lyons - Last Filed: 11/09/22 12:57> Vital Signs - 24 hr 11/09/22 12:52 11/09/22 14:26 11/09/22 14:45 Temperature 99.3 F 98.0 F Pulse Rate 117 H 83 100 Respiratory Rate 20 16 20 Blood Pressure 161/89 H 126/78 Pulse Oximetry 97 100 Oxygen Delivery Method Room Air Room Air 11/09/22 17:04 11/09/22 17:14 Temperature 97.2 F Pulse Rate 87 78 Respiratory Rate 18 20 Blood Pressure 129/60 Pulse Oximetry 100 Oxygen Delivery Method Room Air BMI result Body Mass Index 26.9 <SANDRA Cespedes - Last Filed: 11/09/22 17:44> Const General: cooperative, no acute distress, alert and awake <SANDRA Cespedes - Last Filed: 11/09/22 17:44> Nutritional Appearance: well nourished <SANDRA Cespedes - Last Filed: 11/09/22 17:44> Orientation/consciousness: patient oriented x3 <SANDRA Cespedes - Last Filed: 11/09/22 17:44> Limitations: no limitations <SANDRA Cespedes - Last Filed: 11/09/22 17:44> HENSD Head: Yes normal to inspection and Yes atraumatic <SANDRA Cespedes - Last Filed: 11/09/22 17:44> Ears: hearing grossly normal bilaterally and external ears normal <SANDRA Cespedes - Last Filed: 11/09/22 17:44> General nose exam: Normal external nose present, no nasal discharge noted and no epistaxis <SANDRA Cespedes - Last Filed: 11/09/22 17:44> Face and sinus: Yes normal facial exam, No abrasion and No laceration <SANDRA Cespedes - Last Filed: 11/09/22 17:44> Mouth: Normal oral and palatal mucosa present, no drooling and no muffled voice <SANDRA Cespedes - Last Filed: 11/09/22 17:44> Eyes General: appearance normal, both eyes and all related structures <SANDRA Cespedes - Last Filed: 11/09/22 17:44> Periorbital: periorbital findings normal <SANDRA Cespedes - Last Filed: 11/09/22 17:44> Eyelids: Yes eyelids normal <SANDRA Cespedes - Last Filed: 11/09/22 17:44> Conjunctivae: conjunctivae normal <Moniqeu Hickman PA - Last Filed: 11/09/22 17:44> Pupils: Equal, round and reactive pupils present <Monique Hickman SANDRA - Last File d: 11/09/22 17:44> EOM: EOMs intact bilaterally <Monique Hickman PA - Last Filed: 11/09/22 17:44> Neck Neck: Yes normal visual inspection, Yes full ROM and Yes no lymphadenopathy <Monique Hickman PA - Last Filed: 11/09/22 17:44> Chest Chest palpation & inspection: normal inspection of the chest <Monique Hickman PA - Last Filed: 11/09/22 17:44> Resp Effort & Inspection: normal respiratory effort and able to speak in complete sentences <Monique Hickamn PA - Last Filed: 11/09/22 17:44> Auscultation: wheezes expiratory wheezes, inspiratory wheezes and throughout <Monique Hickman PA - Last Filed: 11/09/22 17:44> GI Inspection: Yes normal to inspection <Monique Hickman PA - Last Filed: 11/09/22 17:44> Neuro General: patient oriented x3 and moves all extremities <Monique Hickman PA - Last Filed: 11/09/22 17:44> Cranial nerves: Yes Equal, round and reactive pupils present <Monique Hickman PA - Last Filed: 11/09/22 17:44> Cognition (Neuro): normal cognition <Monique Hickman PA - Last Filed: 11/09/22 17:44> Motor exam (neuro): 5/5 motor strength present throughout <Monique Hickman PA - Last Filed: 11/09/22 17:44> Sensory Exam: Normal double simultaneous stimulation for sensation <Monique Hickman PA - Last Filed: 11/09/22 17:44> Coordination: [id number] test normal <Monique Hickman PA - Last Filed: 11/09/22 17:44> Extrem General: Yes normal to inspection, Yes full ROM and Yes capillary refill normal <Monique Hickman PA - Last Filed: 11/09/22 17:44> Psych Appearance: grossly normal <Monique Hickman PA - Last Filed: 11/09/22 17:44> Mental Status: mental status grossly normal <SANDRA Cespedes - Last Filed: 11/09/22 17:44> Affect: normal affect <SANDRA Cespedes Last Filed: 11/09/22 17:44> Attitude: cooperative <SANDRA Cespedes Last Filed: 11/09/22 17:44> Thought process: Normal thought process present <SANDRA Cespedes Last Filed: 11/09/22 17:44> Thought content: Normal thought content present <SANDRA Cespedes Last Filed: 11/09/22 17:44> Insight: Good insight present (Psych) <SANDRA Cespedes Last Filed: 11/09/22 17:44> Course Course Course Narrative: RME--47yo F w/PMHx asthma, c/o SOB, CP, cough, abdominal pain and distention x1 week. denies fever, N/V/D Using inhalers & neb w/o relief, last used [employer] +diffuse exp wheeze noted. Abd soft +epigastric/RUQ ttp EKG, Labs, UA, US, CXR, COVID/FLU, duoneb ordered. Patient allergic to Solumedrol <SANDRA Lyons - Last Filed: 11/09/22 12:57> Medications Administered Discontinued Medications Generic Name Dose Route Start Last Admin Trade Name Freq PRN Reason Stop Dose Admin Albuterol Sulfate 5 mg 11/09/22 17:03 11/09/22 17:13 Albuterol Sulfate (0.083%) 2.5 Mg/3 Ml Vial.Neb INHALE 11/09/22 17:04 5 mg ONCE ONE Administration Albuterol Sulfate 2.5 mg/ 0 mg 11/09/22 12:55 11/09/22 14:34 Albuterol/Ipratropium 3 ml INHALE 11/09/22 12:56 5 each ONCE ONE Administration Dexamethasone 10 mg 11/09/22 15:12 11/09/22 15:20 Dexamethasone 2 Mg Tablet PO 11/09/22 15:13 10 mg ONCE ONE Administration <SANDRA Lyons Last Filed: 11/09/22 12:57> Medications Administered Discontinued Medications Generic Name Dose Route Start Last Admin Trade Name Freq PRN Reason Stop Dose Admin Albuterol Sulfate 5 mg 11/09/22 17:03 11/09/22 17:13 Albuterol Sulfate (0.083%) 2.5 Mg/3 Ml Vial.Neb INHALE 11/09/22 17:04 5 mg ONCE ONE Administration Albuterol Sulfate 2.5 mg/ 0 mg 11/09/22 12:55 11/09/22 14:34 Albuterol/Ipratropium 3 ml INHALE 11/09/22 12:56 5 each ONCE ONE Administration Dexamethasone 10 mg 11/09/22 15:12 11/09/22 15:20 Dexamethasone 2 Mg Tablet PO 11/09/22 15:13 10 mg ONCE ONE Administration <SANDRA Cespedes - Last Filed: 11/09/22 17:44> Medical Decision Making Medical Decision Making [facility] Narrative: Patient is a 47 year old assigned female at with a history of depression and asthma presenting to the emergency department today with a cough and wheezing. Patient's physical exam showed wheezing throughout. Patient's blood work was unremarkable. Patient's EKG was unremarkable. Patient's chest x- ray showed no acute process. I explained my physical exam findings as well as all test results to the patient. I answered all questions asked by the patient. Patient received PO Decadron and multiple breathing treatments which she stated helped her symptoms significantly. I stressed the importance of the patient taking her medication as prescribed. I stressed the importance of the patient following up with her primary care provider. I stressed the importance of the patient returning to the emergency department immediately if her symptoms were to worsen or if she were to develop any dizziness, shortness of breath, difficulty breathing, chest pain, blurry vision, loss of vision, nausea, vomiting, abdominal pain, fever, chills, back pain, or any other complaints. Patient verbalized agreement and understanding with this treatment plan and discharge. <SANDRA Cespedes - Last Filed: 11/09/22 17:44> Differential Diagnosis Differential Diagnoses: The differential diagnosis associated with the presentation includes <SANDRA Cespedes - Last Filed: 11/09/22 17:44> asthma <SANDRA Cespedes - Last Filed: 11/09/22 17:44> Lab Data [facility] Lab Attestation statement: I reviewed the patient's lab results. <SANDRA Cespedes - Last Filed: 11/09/22 17:44> Result Diagrams: 11/09/22 14:48 11/09/22 14:48 <SANDRA Lyons - Last Filed: 11/09/22 12:57> Labs: Lab Results 11/09/22 11/09/22 11/09/22 Range/Units 14:47 14:47 14:48 WBC 9.1 (4.8-10.8) X10*3/uL RBC 4.33 (4.20-5.50) X10*6/uL Hgb 12.6 (12.0-16.0) g/dl Hct 38.6 (37.0-47.0) % MCV 89.1 (80.0-98.0) fL MCH 29.1 (27.0-33.0) pg MCHC 32.6 (31.0-35.0) g/dl RDW 13.2 (11.0-16.0) % Plt Count 242 (160-400) X10*3/uL MPV 10.1 (9.4-12.3) fL Immature Gran % (Auto) 0.3 (0.0-0.4) % Neut % (Auto) 64.8 (45-73) % Lymph % (Auto) 22.7 (20-40) % Angelina % (Auto) 6.7 (2-11) % Eos % (Auto) 5.2 H (0-4) % Baso % (Auto) 0.3 (0-2) % Lymph # (Auto) 2.1 (1.2-4.9) X10*3/uL Angelina # (Auto) 0.6 (0.1-1.2) X10*3/uL Eos # (Auto) 0.5 H (0.0-0.4) X10*3/uL Baso # (Auto) 0.0 (0.0-0.2) X10*3/uL Abs Immat Gran (auto) 0.03 (0.00-0.03) X10*3/uL Absolute Neuts (auto) 5.9 (2.0-8.3) x10*3/uL Absolute Nucleated RBC 0.000 (0.0-0.012) X10*3/uL Nucleated RBC % (auto) 0.0 (0.0-0.2) /100WBC Sodium (135-145) mmol/L Potassium (3.3-5.1) mmol/L Chloride (96-108) mmol/L Carbon Dioxide (22-29) mmol/L Anion Gap (12-20) BUN (9-16) mg/dL Creatinine (0.5-1.4) mg/dL Estim Creat Clear Calc Estimated GFR Random Glucose (60-115) mg/dL Calcium (8.4-10.2) mg/dL Magnesium (1.6-2.6) mg/dL Total Bilirubin (0.0-1.0) mg/dL Direct Bilirubin (0.0-0.5) mg/dL AST (5-31) U/L ALT (0-31) U/L Alkaline Phosphatase (39-117) U/L Troponin I High Sens (<3.5-17.0) ng/L Total Protein (6.5-8.0) g/dL Albumin (3.5-5.0) g/dL Lipase (8-78) U/L COVID-19 ([facility]) Negative (Negative) COVID-19 Clin Com See Note Influenza Type A ([facility]) Negative (Negative) Influenza Type B ([facility]) Negative (Negative) Influenza A & B Note See Note 11/09/22 11/09/22 Range/Units 14:48 14:48 WBC (4.8-10.8) X10*3/uL RBC (4.20-5.50) X10*6/uL Hgb (12.0-16.0) g/dl Hct (37.0-47.0) % MCV (80.0-98.0) fL MCH (27.0-33.0) pg MCHC (31.0-35.0) g/dl RDW (11.0-16.0) % Plt Count (160-400) X10*3/uL MPV (9.4-12.3) fL Immature Gran % (Auto) (0.0-0.4) % Neut % (Auto) (45-73) % Lymph % (Auto) (20-40) % Angelina % (Auto) (2-11) % Eos % (Auto) (0-4) % Baso % (Auto) (0-2) % Lymph # (Auto) (1.2-4.9) X10*3/uL Angelina # (Auto) (0.1-1.2) X10*3/uL Eos # (Auto) (0.0-0.4) X10*3/uL Baso # (Auto) (0.0-0.2) X10*3/uL Abs Immat Gran (auto) (0.00-0.03) X10*3/uL Absolute Neuts (auto) (2.0-8.3) x10*3/uL Absolute Nucleated RBC (0.0-0.012) X10*3/uL Nucleated RBC % (auto) (0.0-0.2) /100WBC Sodium 141 (135-145) mmol/L Potassium 3.6 (3.3-5.1) mmol/L Chloride 107 (96-108) mmol/L Carbon Dioxide 28 (22-29) mmol/L Anion Gap 10 L (12-20) BUN 12 (9-16) mg/dL Creatinine 0.82 (0.5-1.4) mg/dL Estim Creat Clear Calc 89.3 Estimated GFR > 60 Random Glucose 89 (60-115) mg/dL Calcium 8.6 (8.4-10.2) mg/dL Magnesium 1.8 (1.6-2.6) mg/dL Total Bilirubin 0.4 (0.0-1.0) mg/dL Direct Bilirubin 0.1 (0.0-0.5) mg/dL AST 18 (5-31) U/L ALT 19 (0-31) U/L Alkaline Phosphatase 69 (39-117) U/L Troponin I High Sens < 2.7 (<3.5-17.0) ng/L Total Protein 6.9 (6.5-8.0) g/dL Albumin 3.9 (3.5-5.0) g/dL Lipase 20 (8-78) U/L COVID-19 ([facility]) (Negative) COVID-19 Clin Com Influenza Type A ([facility]) (Negative) Influenza Type B ([facility]) (Negative) Influenza A & B Note <SANDRA Lyons - Last Filed: 11/09/22 12:57> Lab Results 11/09/22 11/09/2211/09/23 Range/Units 14:47 14:47 14:48 WBC 9.1 (4.8-10.8) X10*3/uL RBC 4.33 (4.20-5.50) X10*6/uL Hgb 12.6 (12.0-16.0) g/dl Hct 38.6 (37.0-47.0) % MCV 89.1 (80.0-98.0) fL MCH 29.1 (27.0-33.0) pg MCHC 32.6 (31.0-35.0) g/dl RDW 13.2 (11.0-16.0) % Plt Count 242 (160-400) X10*3/uL MPV 10.1 (9.4-12.3) fL Immature Gran % (Auto) 0.3 (0.0-0.4) % Neut % (Auto) 64.8 (45-73) % Lymph % (Auto) 22.7 (20-40) % Angelina % (Auto) 6.7 (2-11) % Eos % (Auto) 5.2 H (0-4) % Baso % (Auto) 0.3 (0-2) % Lymph # (Auto) 2.1 (1.2-4.9) X10*3/uL Angelina # (Auto) 0.6 (0.1-1.2) X10*3/uL Eos # (Auto) 0.5 H (0.0-0.4) X10*3/uL Baso # (Auto) 0.0 (0.0-0.2) X10*3/uL Abs Immat Gran (auto) 0.03 (0.00-0.03) X10*3/uL Absolute Neuts (auto) 5.9 (2.0-8.3) x10*3/uL Absolute Nucleated RBC 0.000 (0.0-0.012) X10*3/uL Nucleated RBC % (auto) 0.0 (0.0-0.2) /100WBC Sodium (135-145) mmol/L Potassium (3.3-5.1) mmol/L Chloride (96-108) mmol/L Carbon Dioxide (22-29) mmol/L Anion Gap (12-20) BUN (9-16) mg/dL Creatinine (0.5-1.4) mg/dL Estim Creat Clear Calc Estimated GFR Random Glucose (60-115) mg/dL Calcium (8.4-10.2) mg/dL Magnesium (1.6-2.6) mg/dL Total Bilirubin (0.0-1.0) mg/dL Direct Bilirubin (0.0-0.5) mg/dL AST (5-31) U/L ALT (0-31) U/L Alkaline Phosphatase (39-117) U/L Troponin I High Sens (<3.5-17.0) ng/L Total Protein (6.5-8.0) g/dL Albumin (3.5-5.0) g/dL Lipase (8-78) U/L COVID-19 ([facility]) Negative (Negative) COVID-19 Clin Com See Note Influenza Type A ([facility]) Negative (Negative) Influenza Type B ([facility]) Negative (Negative) Influenza A & B Note See Note 11/09/22 11/09/22 Range/Units 14:48 14:48 WBC (4.8-10.8) X10*3/uL RBC (4.20-5.50) X10*6/uL Hgb (12.0-16.0) g/dl Hct (37.0-47.0) % MCV (80.0-98.0) fL MCH (27.0-33.0) pg MCHC (31.0-35.0) g/dl RDW (11.0-16.0) % Plt Count (160-400) X10*3/uL MPV (9.4-12.3) fL Immature Gran % (Auto) (0.0-0.4) % Neut % (Auto) (45-73) % Lymph % (Auto) (20-40) % Angelina % (Auto) (2-11) % Eos % (Auto) (0-4) % Baso % (Auto) (0-2) % Lymph # (Auto) (1.2-4.9) X10*3/uL Angelina # (Auto) (0.1-1.2) X10*3/uL Eos # (Auto) (0.0-0.4) X10*3/uL Baso # (Auto) (0.0-0.2) X10*3/uL Abs Immat Gran (auto) (0.00-0.03) X10*3/uL Absolute Neuts (auto) (2.0-8.3) x10*3/uL Absolute Nucleated RBC (0.0-0.012) X10*3/uL Nucleated RBC % (auto) (0.0-0.2) /100WBC Sodium 141 (135-145) mmol/L Potassium 3.6 (3.3-5.1) mmol/L Chloride 107 (96-108) mmol/L Carbon Dioxide 28 (22-29) mmol/L Anion Gap 10 L (12-20) BUN 12 (9-16) mg/dL Creatinine 0.82 (0.5-1.4) mg/dL Estim Creat Clear Calc 89.3 Estimated GFR > 60 Random Glucose 89 (60-115) mg/dL Calcium 8.6 (8.4-10.2) mg/dL Magnesium 1.8 (1.6-2.6) mg/dL Total Bilirubin 0.4 (0.0-1.0) mg/dL Direct Bilirubin 0.1 (0.0-0.5) mg/dL AST 18 (5-31) U/L ALT 19 (0-31) U/L Alkaline Phosphatase 69 (39-117) U/L Troponin I High Sens < 2.7 (<3.5-17.0) ng/L Total Protein 6.9 (6.5-8.0) g/dL Albumin 3.9 (3.5-5.0) g/dL Lipase 20 (8-78) U/L COVID-19 ([facility]) (Negative) COVID-19 Clin Com Influenza Type A ([facility]) (Negative) Influenza Type B ([facility]) (Negative) Influenza A & B Note <SANDRA Cespedes - Last Filed: 11/09/22 17:44> Independent Interpretation I performed an independent interpretation of an: EKG <SANDRA eCspedes - Last Filed: 11/09/22 17:44> Interpretation: Vent. Rate: 105 BPM ? ? Atrial Rate: 105 BPM P-R Int: 130 ms? QRS Dur: 080 ms QT Int: 348 ms ? ? ? P-R-T Axes: 073 071 040 degrees QTc Int: 459 ms ? Sinus tachycardia Otherwise normal ECG When compared with ECG of 12-NOV-2020 10:19, No significant change was found ? Electronically Signed By:LEANDRO MALONEY MD Dictated By: Leandro Maloney MD Signed By: Electronically signed by Leandro Maloney MD 11/09/22 1536 <SANDRA Cespedes Last Filed: 11/09/22 17:44> Radiology Impression Radiologist Impression: My interpretation is in agreement with the radiologist's impression of this imaging study. - EXAMINATION: XR CHEST CLINICAL INFORMATION: Shortness of breath COMPARISON: October 2020. TECHNIQUE: Portable frontal view of the chest was obtained. 1310 hours. FINDINGS: No airspace consolidation or vascular congestion noted. Minimal linear atelectasis noted toward the left base. Pleural surfaces appear to be clear. XR/XR chest 1V IMPRESSION: Minimal linear atelectasis toward the left base. No dominant consolidations or vascular congestion. Dictated By: Miles Medina Signed By: Electronically signed by Miles? Carol 11/09/22 1419 <SANDRA Cespedes Last Filed: 11/09/22 17:44> Critical Care Time Critical Care Time Critical Care Time: Yes <SANDRA Cespedes Last Filed: 11/09/22 17:44> Total Critical Care Time: 30 <SANDRA Cespedes Last Filed: 11/09/22 17:44> Attestation: Follow up with your primary care provider. Return to the emergency department immediately if your symptoms worsen or if you develop any dizziness, shortness of breath, difficulty breathing, chest pain, blurry vision, loss of vision, nausea, vomiting, abdominal pain, fever, chills, back pain, or any other complaints. <SANDRA Cespedes - Last Filed: 11/09/22 17:44> Discharge Plan Discharge Clinical Impression: Asthma <SANDRA Lyons - Last Filed: 11/09/22 12:57> Patient Disposition: Home, Self-Care <SANDRA Lyons Last Filed: 11/09/22 12:57> Instructions: Asthma (DC) <SANDRA Lyons Last Filed: 11/09/22 12:57> Additional Instructions: Follow up with your primary care provider. Return to the emergency department immediately if your symptoms worsen or if you develop any dizziness, shortness of breath, difficulty breathing, chest pain, blurry vision, loss of vision, nausea, vomiting, abdominal pain, fever, chills, back pain, or any other complaints. <SANDRA Lyons Last Filed: 11/09/22 12:57> Prescriptions: New prednisone 20 mg tablet 20 mg PO DAILY 7 Days Qty: 7 0RF doxycycline hyclate 100 mg tablet 100 mg PO BID 7 Days Qty: 14 0RF albuterol sulfate 90 mcg/actuation HFA aerosol inhaler 1 inh inhalation QID PRN (Reason: shortness of breath or wheezing) Qty: 8.5 0RF No Action ibuprofen 800 mg tablet 800 mg PO Q8H PRN (Reason: pain) Qty: 14 0RF albuterol sulfate 0.63 mg/3 mL solution for nebulization 0.63 mg inhalation QID PRN (Reason: shortness of breath or wheezing) Qty: 75 0RF albuterol sulfate 90 mcg/actuation HFA aerosol inhaler 1 inh inhalation QID PRN (Reason: shortness of breath or wheezing) Qty: 8.5 0RF levothyroxine [Synthroid] 25 mcg tablet 25 mcg PO DAILY metoprolol succinate 25 mg capsule,sprinkle,ER 24hr 25 mg PO DAILY <SANDRA Lyons Last Filed: 11/09/22 12:57> Referrals: Keara Carbajal MD [Primary Care Provider] - <SANDRA Lyons Last Filed: 11/09/22 12:57> Stand Alone Forms: Work/School Release <SANDRA Lyons - Last Filed: 11/09/22 12:57> Print Language: Citizen Of [place] <SANDRA Lyons - Last Filed: 11/09/22 12:57>
[2022-11-09 12:52] VITALS: BP 161/89; PULSE 117; RESP 20; TEMP 37.4; O2SAT 97; BMI 26.9
--- NOTE | 2022-11-09 12:55 | ECG_ITS ---
Test Reason : sob Blood Pressure : / mmHG Vent. Rate : 105 BPM Atrial Rate : 105 BPM P-R Int : 130 ms QRS Dur : 080 ms QT Int : 348 ms P-R-T Axes : 073 071 040 degrees QTc Int : 459 ms Sinus tachycardia Otherwise normal ECG When compared with ECG of 12-NOV-2020 10:19, No significant change was found Referred By: Rosibel Hutton Electronically Signed By:SHANICE MALONEY MD
[2022-11-09 14:26] VITALS: BP 126/78; PULSE 83; RESP 16; TEMP 36.7; O2SAT 100
[2022-11-09 14:45] VITALS: PULSE 100; RESP 20; O2SAT 99
[2022-11-09 14:52] LABS: MANUAL DIFF FLAG NO
[2022-11-09 14:54] LABS: Basophils Percent Auto 0.3 % (0-2); Eosinophils Absolute Auto 0.5 X10*3/uL (0.0-0.4); Eosinophils Percent Auto 5.2 % (0-4); Hematocrit 38.6 % (37.0-47.0); Hemoglobin 12.6 g/dl (12.0-16.0); Imm Gran Abs Auto 0.03 X10*3/uL (0.00-0.03); Imm Gran Pct Auto 0.3 % (0.0-0.4); Lymphocytes Absolute Auto 2.1 X10*3/uL (1.2-4.9); Lymphocytes Percent Auto 22.7 % (20-40); Mean Corpuscular HGB Conc 32.6 g/dl (31.0-35.0); Mean Corpuscular Hemoglobin 29.1 pg (27.0-33.0); Mean Corpuscular Volume 89.1 fL (80.0-98.0); Mean Platelet Volume 10.1 fL (9.4-12.3); Monocytes Absolute Auto 0.6 X10*3/uL (0.1-1.2); Monocytes Percent Auto 6.7 % (2-11); Neutrophils Absolute Auto 5.9 x10*3/uL (2.0-8.3); Neutrophils Percent Auto 64.8 % (45-73); Platelet Count 242 X10*3/uL (160-400); Red Blood Count 4.33 X10*6/uL (4.20-5.50); Red Cell Distribution Width 13.2 % (11.0-16.0); White Blood Count 9.1 X10*3/uL (4.8-10.8)
[2022-11-09 15:09] LABS: Alanine Aminotransferase 19 U/L (0-31); Albumin Level 3.9 g/dL (3.5-5.0); Alkaline Phosphatase 69 U/L (39-117); Anion Gap 10 (12-20); Aspartate Amino Transferase 18 U/L (5-31); Bilirubin Direct 0.1 mg/dL (0.0-0.5); Bilirubin Total 0.4 mg/dL (0.0-1.0); Blood Urea Nitrogen 12 mg/dL (9-16); Calcium 8.6 mg/dL (8.4-10.2); Carbon Dioxide 28 mmol/L (22-29); Chloride 107 mmol/L (96-108); Creatinine Clr Calc Pharmacy 89.3; Estimated Glomerular Filt Rate > 60; Glucose Random 89 mg/dL (60-115); Lipase 20 U/L (8-78); Magnesium 1.8 mg/dL (1.6-2.6); Potassium 3.6 mmol/L (3.3-5.1); Sodium 141 mmol/L (135-145); Total Protein 6.9 g/dL (6.5-8.0)
[2022-11-09 15:20] LABS: IDNOW Serial# 16C4AD1C; Influenza A Negative (Negative); Influenza B2 Negative (Negative)
[2022-11-09] MEDS: dexAMETHasone 2 MG TABLET 10 MG PO (15:20)
[2022-11-09 15:21] LABS: COVID-19 Test Negative (Negative)
[2022-11-09 15:25] LABS: Troponin-I High Sensitivity < 2.7 ng/L (<3.5-17.0)
[2022-11-09 17:04] VITALS: BP 129/60; PULSE 87; RESP 18; TEMP 36.2; O2SAT 100
[2022-11-09] MEDS: Albuterol Sulfate (0.083%) 2.5 MG/3 ML VIAL.NEB 5 MG INHALE (17:13)
[2022-11-09 17:14] VITALS: PULSE 78; RESP 20; O2SAT 99
== END 2022-11-09 17:54 | disposition home or self-care (01) ==
PROVIDERS: Physician Assistant; Emergency Provider Emergency Medicine; PCP General Practice
DX: J45.909 Unspecified asthma, uncomplicated (principal); R06.02 Shortness of breath; R00.0 Tachycardia, unspecified; R10.2 Pelvic and perineal pain; Z20.822 Contact with and (suspected) exposure to COVID-19; Z20.828 Contact with and (suspected) exposure to other viral communicable diseases; Z79.899 Other long term (current) drug therapy
CPT/HCPCS: 36415; 71045; 76705; 80048; 80076; 83690; 83735; 84484; 85025; 87502; 87635; 93005; 94640; 99284; 99285; J8540

== ENCOUNTER → 2023-08-25 09:00 | Outpatient (BNV) | payer MEDICAID, SELFPAY | PROVIDERS: PCP General Practice; Visit Provider Radiology Diagnostic Radiology | DX: Z12.31 Encounter for screening mammogram for malignant neoplasm of breast (principal) | CPT/HCPCS: 77063; 77067 ==

== ENCOUNTER 2023-08-25 09:07 | Outpatient (REF) | payer MEDICAID, SELFPAY ==
--- NOTE | ~2023-08-25 | MM_ITS ---
EXAMINATION: MM SCREENING DIGITAL BREAST TOMOSYNTHESIS, BILATERAL CLINICAL INFORMATION: Screening. Asymptomatic. COMPARISON: Mammography: This study is compared with prior exams dating back to 2016. TECHNIQUE: Digital breast tomosynthesis is performed in both the craniocaudal and mediolateral oblique views along with computer-aided detection (CAD). Synthesized 2D images are generated from the tomosynthesis. FINDINGS: The breasts are heterogeneously dense, which may obscure small masses (ACR BI-RADS breast composition Category c). There are no significant masses, abnormal calcifications, or other abnormalities. MM/MM tomosynthesis screening BI IMPRESSION: No mammographic evidence of malignancy. ASSESSMENT: BI-RADS BI-RADS 1 - Negative RECOMMENDATION: Routine annual mammography screening. 1 year F/U This examination should not preclude the clinical evaluation of a suspicious palpable abnormality. This patient's information was entered into a reminder system with a target due date for their next mammogram.
== END 2023-08-25 09:08 | disposition home or self-care (01) ==
LOC: HO.MAMMO 09:07
PROVIDERS: PCP General Practice; Visit Provider General Practice
DX: Z12.31 Encounter for screening mammogram for malignant neoplasm of breast (principal)
CPT/HCPCS: 77063; 77067

== ENCOUNTER 2023-10-18 09:39 | Outpatient (REF) | payer MEDICAID, SELFPAY ==
[2023-10-18 11:25] LABS: MANUAL DIFF FLAG NO
[2023-10-18 11:36] LABS: Basophils Percent Auto 0.4 % (0-2); Eosinophils Absolute Auto 0.3 X10*3/uL (0.0-0.4); Eosinophils Percent Auto 3.7 % (0-4); Hematocrit 39.9 % (37.0-47.0); Hemoglobin 12.7 g/dl (12.0-16.0); Imm Gran Abs Auto 0.04 X10*3/uL (0.00-0.03); Imm Gran Pct Auto 0.5 % (0.0-0.4); Lymphocytes Absolute Auto 2.1 X10*3/uL (1.2-4.9); Lymphocytes Percent Auto 26.2 % (20-40); Mean Corpuscular HGB Conc 31.8 g/dl (31.0-35.0); Mean Corpuscular Hemoglobin 29.1 pg (27.0-33.0); Mean Corpuscular Volume 91.3 fL (80.0-98.0); Monocytes Absolute Auto 0.5 X10*3/uL (0.1-1.2); Monocytes Percent Auto 6.2 % (2-11); Neutrophils Absolute Auto 5.2 x10*3/uL (2.0-8.3); Platelet Count 260 X10*3/uL (160-400); Red Blood Count 4.37 X10*6/uL (4.20-5.50); Red Cell Distribution Width 12.9 % (11.0-16.0); White Blood Count 8.2 X10*3/uL (4.8-10.8)
[2023-10-18 12:16] LABS: Alanine Aminotransferase 18 U/L (0-31); Alkaline Phosphatase 63 U/L (39-117); Anion Gap 14 (12-20); Aspartate Amino Transferase 30 U/L (5-31); Bilirubin Total 0.7 mg/dL (0.0-1.0); Blood Urea Nitrogen 14 mg/dL (9-16); Calcium 9.2 mg/dL (8.4-10.2); Carbon Dioxide 25 mmol/L (22-29); Chloride 106 mmol/L (96-108); Cholesterol 217 mg/dL (<200); Estimated Glomerular Filt Rate > 60; Glucose Random 84 mg/dL (60-115); HDL Cholesterol 47 mg/dL (>40); LDL Cholesterol Calculated 132 mg/dL (<100); Potassium 4.7 mmol/L (3.3-5.1); Sodium 140 mmol/L (135-145); Total Protein 8.1 g/dL (6.5-8.0); Triglycerides 191 mg/dL (<150)
== END 2023-10-18 09:40 | disposition home or self-care (01) ==
LOC: HO.HHCL 09:39
PROVIDERS: Visit Provider Registered Nurse
DX: R10.11 Right upper quadrant pain (principal)
CPT/HCPCS: 36415; 80053; 80061; 85025

== ENCOUNTER 2023-11-01 08:30 | Outpatient (REF) | payer MEDICAID, SELFPAY ==
--- NOTE | ~2023-11-01 | US_ITS ---
EXAMINATION: US ABDOMEN COMPLETE CLINICAL INFORMATION: 48-year-old female with acute on chronic RUQ pain. Possible gallstones. COMPARISON: Ultrasound abdomen limited 11/09/2022 TECHNIQUE: Real-time imaging of the abdominal viscera. FINDINGS: PANCREAS: Not well seen due to shadowing from overlying bowel gas. ABDOMINAL AORTA: Visualized portions are normal. INFERIOR VENA CAVA: Visualized portions are normal. LIVER: The liver is normal in size. The liver contour is normal. Increased echogenicity. No focal hepatic lesion. There is no intrahepatic biliary duct dilatation seen. GALLBLADDER: Normal. The gallbladder is physiologically distended without evidence of stones, sludge, polyps, wall thickening or pericholecystic fluid. COMMON BILE DUCT: Normal in caliber measuring 0.2 cm in diameter. RIGHT KIDNEY: Mild pelviectasis, unchanged compared to 11/09/2022. No hydronephrosis. No renal calculi or focal parenchymal lesions. The kidney measures 9.9 cm in maximum dimension. LEFT KIDNEY: Normal. No hydronephrosis. No renal calculi or focal parenchymal lesions. The kidney measures 10.9 cm in maximum dimension. SPLEEN: Normal. The spleen measures 11.4 cm in maximum dimension. FREE FLUID: None. US/US abdomen complete IMPRESSION: Limited evaluation due to shadowing from overlying bowel gas. 1. Increased echogenicity of the liver is a nonspecific finding but most commonly on the basis of diffuse hepatocellular disease such as hepatic steatosis. 2. Mild right renal pelviectasis, unchanged compared to 11/09/2022.
== END 2023-11-01 08:31 | disposition home or self-care (01) ==
LOC: HO.US 08:30
PROVIDERS: PCP General Practice; Visit Provider Registered Nurse
DX: R10.11 Right upper quadrant pain (principal)
CPT/HCPCS: 76700

== ENCOUNTER 2024-01-02 08:33 | Outpatient (AMB) | payer MEDICAID, SELFPAY ==
--- NOTE | 2024-01-02 08:37 | MHC.OFFVIS ---
Vital Signs 01/02/24 08:38 01/02/24 08:44 Height 5 ft 7 in Weight 196 lb 3.382 oz BMI 30.7 BP 116/68 Blood Pressure Location Lt brachial Position Sitting Pulse 78 Pulse Source Pulse Oximeter Pulse Oximetry (%) 98 Oxygen Delivery Method Room Air Intake Visit Reasons: RUQ Pain, [place] Screening Intake Note: Alena presents to the office today for a new patient visit (colo scr) CC; Pt denies any significant symptoms or concerns. Melter Clerk Required: No Allergies methylprednisolone [From Solu-Medrol] Allergy (Severe, Verified 01/02/24 08:41) Hives Iodinated Contrast Media [IV CONTRAST] Allergy (Intermediate, Verified 01/02/24 08:41) RASH pollen extracts [POLLEN] Allergy (Unknown, Verified 01/02/24 08:41) ITCHY, WATERY EYES, SNEEZING HPI HPI RUQ Pain, [place] Screening: Details: 48 year old? female past medical history of hypothyroidism, asthma, hypertension is here today for pre colonoscopy screening.? Patient was sent to us by her PCP.? This is her first colonoscopy screening.? Patient denies any gastrointestinal symptoms in the past or at present.? Maternal grandmother had colorectal cancer with colon resection.? Patient never had anesthesia in the past..? Negative for history of sleep apnea.? Denies any history of cardiac, renal, pulmonary, or hepatic disease.?? No history of infectious? diseases like hepatitis A, B, C, HIV or tuberculosis.? Patient is not on any anticoagulation [facility] Medical History (Updated 01/02/24 @ 20:09 by Shobha Vasquez [employer]-) Family history of colorectal cancer Mass of breast, left Asthma Surgical History Delivery by section Family History Maternal Grandmother Colon cancer Maternal Uncle Prostate cancer Social History Alcohol intake: current Alcohol intake frequency: holidays/special occasions only Patient Tobacco Use Status: Former Tobacco user Tobacco use type: Cigarette Years Smoked: stopped 3 years ago Female Reproductive History Menstrual Age of Menarche: 10 Review of Systems Const Denies weight gain and Denies weight loss ENT Reports no additional complaints, Denies dysphagia and Denies odynophagia Card Reports no additional complaints Resp Reports no additional complaints GI Denies abdominal pain, Denies belching, Denies melena, Denies bloating, Denies change in bowel habits, Denies dysphagia, Denies excessive flatus, Denies dyspepsia, Denies heartburn, Denies diarrhea, Denies loose stools, Denies nausea, Denies odynophagia and Denies vomiting Musc Reports no additional complaints Neuro Reports no additional complaints Psych Reports no additional complaints Endo Reports no additional complaints Physical Exam Vital Signs: Last Vital Signs Pulse 78 01/02/24 08:44 BP 116/68 01/02/24 08:44 Pulse Ox 98 01/02/24 08:44 Oxygen Delivery Method Room Air 01/02/24 08:44 BMI result Body Mass Index 30.7 Const General: healthy appearing and no acute distress Nutritional Appearance: obese Orientation/consciousness: patient oriented x3 HEENT Head: Yes normal to inspection, Yes normocephalic and Yes atraumatic Face and sinus: Yes normal facial exam Mouth: Normal oral and palatal mucosa present Throat: Yes posterior oropharynx normal, Yes tonsils normal and Yes uvula midline Eyes General: appearance normal, both eyes and all related structures Neck Neck: Yes normal visual inspection, Yes full ROM and Yes trachea midline Thyroid: Thyroid normal Resp Effort & Inspection: normal respiratory effort, able to speak in complete sentences, no tracheal deviation and symmetric chest movement Auscultation: clear to auscultation bilaterally Cardio Jugular venous distension: no JVD Rate: regular rate Heart sounds: S1 normal heart sound present, S2 normal heart sound present, no gallops and no murmurs GI Inspection: Yes normal to inspection, No distended and Yes obesity Palpation (GI): Soft to palpation, not firm, nontender and No hepatosplenomegaly present Auscultation: normal bowel sounds General: Yes no CVA tenderness Back/Spine/Pelvis Back: no CVA tenderness Skin General skin exam: elasticity normal, turgor normal and dry skin Neuro General: patient oriented x3 Psych Appearance: grossly normal Mental Status: mental status grossly normal Speech and movement: Normal speech and movement present Affect: normal affect Attitude: cooperative Thought process: Normal thought process present Thought content: Normal thought content present Insight: Good insight present (Psych) Judgement: Good judgement present (Psych) Assessment & Plan Assessment & Plan (1) Screen for colon cancer: Code(s): Z12.11 - Encounter for screening for malignant neoplasm of colon (2) Family history of colorectal cancer: Code(s): Z80.0 - Family history of malignant neoplasm of digestive organs Category: Medical Plan Patient denies any GI, cardiac or respiratory symptoms.? Patient never had anesthesia in the past. Denies any history of sleep apnea.? No history infectious diseases in the past or present.? Not on any anticoagulation therapy.? Family history of colorectal cancer. Patient's maternal grandmother had colon cancer and had colon resection.? Patient denies melena, hematochezia, unintentional weight loss or ribbon like stools.? Discussed at length the pre-procedure,? prep, diet & medications as well as what to expect prior, during and after the procedure.?? Stressed the importance of good bowel prep.? Recommended the use of Vaseline or Calmoseptine OTC & baby wipes with bowel movements to promote comfort.? ?Patient verbalizes understanding and agrees to plan of care.? She was given the opportunity to ask questions and all questions answered.? We will see her after the procedure.? Coding Level of Care Code New Pt Level 3 (53889) Diagnoses Screen for colon cancer Z12.11 Family history of colorectal cancer Z80.0 Time Spent (min) 40 Comment 30 minutes spent with patient and additional 10 minutes spent reviewing her records
[2024-01-02 08:38] VITALS: BMI 30.7
[2024-01-02 08:44] VITALS: BP 116/68; PULSE 78; O2SAT 98
== END 2024-01-02 09:22 | disposition home or self-care (01) ==
PROVIDERS: PCP General Practice; Visit Provider Nurse Practitioner Family
DX: Z12.11 Encounter for screening for malignant neoplasm of colon (principal); Z80.0 Family history of malignant neoplasm of digestive organs; Z01.818 Encounter for other preprocedural examination
CPT/HCPCS: 99203

== ENCOUNTER → 2024-01-02 08:33 | Outpatient (BNVA) | payer MEDICAID, SELFPAY | PROVIDERS: PCP General Practice; Visit Provider Nurse Practitioner Family | DX: Z12.11 Encounter for screening for malignant neoplasm of colon (principal); R10.11 Right upper quadrant pain; Z80.0 Family history of malignant neoplasm of digestive organs | CPT/HCPCS: 99212 ==

== ENCOUNTER 2025-02-18 13:28 | Emergency (ER) | payer SELFPAY ==
--- NOTE | ~2025-02-18 | XR_ITS ---
EXAMINATION: XR KNEE, LEFT CLINICAL INFORMATION: fall, pain COMPARISON: None available. TECHNIQUE: Four views of the left knee. FINDINGS: There is no joint effusion. No fracture line is identified. There is mild narrowing of the medial and lateral joint spaces. XR/XR knee LT 4V IMPRESSION: Mild narrowing of the medial and lateral joint space. No acute abnormality. Electronically signed by: Jono Pang MD 02/18/2025 02:48 PM EDT
--- NOTE | ~2025-02-18 | XR_ITS ---
EXAMINATION: XR ANKLE 3 OR MORE VIEWS LEFT, XR FOOT 3 OR MORE VIEWS LEFT HISTORY: fall, pain COMPARISON: Comparison is made with the prior examination dated 03/02/2020. FINDINGS: Seven views of the left foot and ankle are submitted. Osseous mineralization is normal. There is a comminuted nondisplaced fracture of the distal fibula. No additional fracture is seen. There is no dislocation. The joint spaces are preserved. The soft tissues are unremarkable. XR/XR foot LT min 3V IMPRESSION: Comminuted nondisplaced fracture of the distal fibula. Electronically signed by: Aristeo Sagastume MD 02/18/2025 02:46 PM EDT
--- NOTE | ~2025-02-18 | XR_ITS ---
EXAMINATION: XR HIP 1 VIEW LEFT WITH PELVIS HISTORY: fall, pain COMPARISON: There are no prior studies available for comparison. FINDINGS: A single AP view of the pelvis and two views of the left hip are submitted. Osseous mineralization is normal. There is no fracture or dislocation. The joint space is maintained. The soft tissues are unremarkable. XR/XR hip LT w PEL1V IMPRESSION: Unremarkable examination of the left hip. Electronically signed by: Aristeo Sagastume MD 02/18/2025 02:47 PM EDT
--- NOTE | ~2025-02-18 | CT_ITS ---
EXAMINATION: CT HEAD WITHOUT CONTRAST CLINICAL INFORMATION: Fall downstairs, head strike COMPARISON: None available. TECHNIQUE: Contiguous axial imaging was performed from the skull base to vertex without intravenous administration of contrast. This CT examination was performed using dose optimization techniques as appropriate, variously including the following: *Automated exposure control *Adjustment of mA and/or kV according to patient size (this includes techniques or standardized protocols for targeted exams where dose is matched to indication/reason for exam; i.e. extremities or head) *Use of iterative reconstruction technique FINDINGS: There is no evidence of intracranial hemorrhage or extra-axial fluid collection. There is no mass effect, or edema. No CT evidence of acute territorial infarct. Ventricles, sulci, and cisterns are normal in size and configuration for patient age. No hydrocephalus. No midline shift. Negative hyperdense MCA sign. Negative insular ribbon sign. No white matter abnormalities. Normal pituitary. Globes and orbital contents image normally. No extracranial soft tissue abnormalities. There are mucous retention cysts in the left greater than right maxillary sinuses. The remainder of the paranasal sinuses, mastoid air cells, and tympanic cavities are normally aerated. No suspicious bony abnormalities. There are no acute fractures evident. CT/CT head/brain wo IV con IMPRESSION: No acute intracranial abnormality. No acute fracture evident. Electronically signed by: Tommie Baca MD 02/18/2025 03:23 PM EDT
--- NOTE | ~2025-02-18 | XR_ITS ---
EXAMINATION: XR ANKLE 3 OR MORE VIEWS LEFT, XR FOOT 3 OR MORE VIEWS LEFT HISTORY: fall, pain COMPARISON: Comparison is made with the prior examination dated 03/02/2020. FINDINGS: Seven views of the left foot and ankle are submitted. Osseous mineralization is normal. There is a comminuted nondisplaced fracture of the distal fibula. No additional fracture is seen. There is no dislocation. The joint spaces are preserved. The soft tissues are unremarkable. XR/XR ankle LT min 3V IMPRESSION: Comminuted nondisplaced fracture of the distal fibula. Electronically signed by: Aristeo Sagastume MD 02/18/2025 02:46 PM EDT
--- NOTE | ~2025-02-18 | CT_ITS ---
EXAMINATION: CT CERVICAL SPINE WITHOUT IV CONTRAST HISTORY: fall, head injury, pain. TECHNIQUE: Helical CT of the cervical spine was performed per standard departmental protocol. Coronal and sagittal reformatted images were also evaluated. One or more of the following techniques was used for dose reduction: Automated exposure control, adjustment of the mA and/or kV according to patient size, use of iterative reconstruction technique. DLP: 366 mGy-cm COMPARISON: There are no prior studies available for comparison. FINDINGS: CERVICAL SPINE: The vertebral bodies maintain normal height and alignment without evidence of fracture or subluxation. The intervertebral disc spaces are preserved. Evaluation for disc pathology is limited by lack of intrathecal contrast material. BRAIN: The visualized portion of the brain is unremarkable. SINUSES: The visualized paranasal sinuses, mastoid air cells and middle ear cavities are unremarkable. LUNG APICES: The visualized lung apices are clear. SOFT TISSUES: There are prominent level I lymph nodes in the neck bilaterally measuring up to 1.3 cm in short axis dimension on the right and 1.9 cm in short axis dimension on the left. CT/CT cervical spine wo IV con IMPRESSION: 1. No evidence of fracture or malalignment of the cervical spine. 2. Prominent bilateral cervical lymph nodes as described. Clinical correlation is recommended. Electronically signed by: Aristeo Sagastume MD 02/18/2025 03:21 PM EDT
[2025-02-18 13:59] VITALS: BP 124/75; PULSE 73; RESP 18; TEMP 36.4; O2SAT 99; BMI 28.2
--- NOTE | 2025-02-18 14:05 | ED.FALL ---
HPI - Fall General Chief Complaint: Fall Stated Complaint: Fell down the basement stairs Time Seen by Provider: 02/18/25 14:38 Source: patient Mode of arrival: ambulatory Limitations: no limitations History of Present Illness ED Provider: Teresa Poe PA-C HPI Narrative: Patient reports to the emergency department today accompanied by her son. While patient was at home today carrying a basket of laundry she attempted to go down stairs with a but unfortunately lost her stepping on the 1st step causing her to trip to her left side as she attempted to catch herself on the railing but missed. She fell onto her left hip and leg and then slid down the rest of the stairs. She did not hit her head at some point during it. She did not experience any loss of consciousness the but did see ?stars?. She was not able to immediately get herself up to the pain that she experienced in her left lower extremity. She reports feeling in her pain in her left buttock as well as her left anterior lateral knee and her left lateral ankle. She is denying any paresthesias and has the most pain in her ankle. Hurts to bear weight. She is endorsing slight pain on the posterior aspect of her head with slight nausea but otherwise denying any sound or light sensitivity. She has no prior history of concussion. She is not on any anticoagulation. She is able to move her neck side to side with no difficulty but does feel pain in the base of her neck. She is denying any paresthesias or weakness or pain in her upper extremities. Denies any chest wall pain painful inspiration or any symptoms that preceded fall. She has declined any Tylenol at this time and has not treat her symptoms in any way. She is denying any associated back or abdominal discomfort either. Patient is reporting that her left elbow her her slightly when she fell but not bothersome to her now. Patient is right-hand dominant. Related Data Home Medications ?Medication ?Instructions ?Recorded ?Confirmed levothyroxine 25 mcg tablet 25 mcg PO DAILY 09/15/22 09/23/22 (Synthroid) metoprolol succinate 25 mg capsule 25 mg PO DAILY 09/15/22 09/23/22 sprinkle, ext. release 24 hr albuterol sulfate 2.5 mg/3 mL mg inhalation Q4H PRN 01/02/24 (0.083 %) solution for nebulization budesonide-formoterol HFA 160 inhalation 01/02/24 mcg-4.5 mcg/actuation aerosol inhaler (Symbicort) cetirizine 10 mg tablet 10 mg PO QAM 01/02/24 famotidine 20 mg tablet 20 mg PO DAILY 01/02/24 inhalational spacing device #1 ea 01/02/24 (Meenunohelia Lorena [facility] spacer) Previous Rx's ?Medication ?Instructions ?Recorded ibuprofen 800 mg tablet 800 mg PO Q8H PRN pain #14 tabs 09/07/20 albuterol sulfate 90 mcg/actuation 1 inh inhalation QID PRN shortness 11/12/20 aerosol inhaler of breath or wheezing #8.5 grams albuterol sulfate 90 mcg/actuation 1 inh inhalation QID PRN shortness 11/09/22 aerosol inhaler of breath or wheezing #8.5 grams prednisone 20 mg tablet 20 mg PO DAILY 7 days #7 tabs 11/09/22 acetaminophen 300 mg-codeine 30 mg 1 tab PO Q8H PRN severe pain 02/18/25 tablet (scale score 7-10) #10 tabs Allergies Allergy/AdvReac Type Severity Reaction Status Date / Time methylprednisolone (From Allergy Severe Hives Verified 02/18/25 14:04 Solu-Medrol) Iodinated Contrast Media (IV Allergy Intermediate RASH Verified 02/18/25 14:04 CONTRAST) pollen extracts (POLLEN) Allergy Unknown ITCHY, Verified 02/18/25 14:04 WATERY EYES, SNEEZING Review of Systems Review of Systems: Yes all other systems are reviewed and are negative PMFSH Past Medical History Attestation statement: The following information was validated with the patient. Source: old records reviewed, obtained from family and nursing notes reviewed Medical History Family history of colorectal cancer Mass of breast, left Asthma Surgical History Delivery by section Family History Family History Maternal Grandmother Colon cancer Maternal Uncle Prostate cancer Social History Social History Alcohol intake: current Alcohol intake frequency: holidays/special occasions only Patient Tobacco Use Status: Former Tobacco user Tobacco use type: Cigarette Years Smoked: stopped 3 years ago Advance Directives: No Advance Directives Information Provided: Yes Physical Exam Exam: Exam: Cranial nerves II through XII intact, speech fluent and appropriate, no cftuvc-vyrc-eavyoe ataxia, no okwi-co-olcq ataxia, no palmar drift, strength 4+ throughout (with exception to left ankle dorsiflexion, breaks with resistance secondary to left ankle injury), sensory intact throughout to soft touch and equal bilaterally. Moving all extremities without difficulty with exception to left ankle, limited dorsi/plantarflexion. No raccoon eyes, septal hematoma, subramanian sign, or hemotympanum noted bilaterally. No mid facial instability. No midline tenderness, step-offs or deformities of the entire spine. Able to move neck 50 degrees in each direction but slight discomfort. Left buttock region mildly tender to palpation but no sciatic notch or GT tenderness no skin changes. Left lateral knee slightly tender to palpation but no instability noted negative anterior/posterior drawer no meniscus tenderness reproduced but limited due to ankle injury for full testing, compartments are soft cap refill less than 3 seconds distal pulses 2+ DTRs completely intact bilaterally, left lateral ankle is mildly tender along with the distal portion with moderate soft tissue swelling no ankle instability noted, no ecchymosis no tenderness other than noted above, no chest wall tenderness or crepitus lungs clear to auscultation bilaterally peripheral perfusion normal with cap refill less 3 seconds distal pulses 2+, abdomen is soft and nontender, no scalp hematoma noted at this time but turned in his to palpation of the right posterior occiput parietal region Vital Signs: Vital Signs: Last Vital Signs Temp 97.6 F 02/18/25 13:59 Pulse 73 02/18/25 13:59 Resp 18 02/18/25 13:59 BP 124/75 02/18/25 13:59 Pulse Ox 99 02/18/25 13:59 O2 Del Method Room Air 02/18/25 13:59 BMI result Body Mass Index 28.2 Const: General: cooperative, healthy appearing, comfortable and no acute distress Course Course Course Narrative: This is an RME performed by Regina Gtz CNP: Additional HPI, ROS, PE not included below will be deferred to primary provider. Patient is a 49-year-old female presents emergency department for evaluation. Reports a mechanical slip and fall down 10 stairs prior to arrival landing on her left side, struck her head saw stars? but no LOC, no use of anticoagulants. Has since developed nausea. Complaining of left-sided headache, neck pain, diffuse pain to the entirety of her left leg with any movement at the ankle knee and hip. Plan: CT head/cervical spine, XR left hip knee ankle and foot Medical Decision Making Medical Decision Making MDM Narrative: Well-appearing 49-year-old female with past medical history significant for anxiety and bipolar disorder and varicose veins presenting to the emergency department today status post fall down a flight of stairs at home. Upon arrival to ED she is afebrile is normotensive with vital signs that are stable in no acute distress. She received an RME in triage. There was no loss of consciousness. Patient does not present with evidence of ICH clinically but like a concussion given the slight headache and nausea. She has declined any analgesia. She is moderate risk for ICH via [place] head CT rule head CT was ordered. Given fall greater than 60 risk for cervical spine fracture not collared otherwise no midline tenderness step-offs or deformities but C-spine CT ordered from triage. Secondary trauma exam is not clinically significant for any other injuries other than tenderness to her left lower extremity imaging from triage ordered of her left hip knee and ankle. Patient has again declined analgesics such as Tylenol for discomfort ice. Abdomen is soft and nontender lungs are clear full trauma scans of the chest and abdomen were deferred. Patient is not on any anticoagulation blood work was deferred. X-rays were unremarkable of the left hip and the knee unremarkable. Patient does have a fracture noted of her distal fibular spiral like formation malleolus not involved-she will be placed in tall boot for this reason as a short boot his into the area that is fractured and injured worsening level of discomfort. Analgesic treatment discussed with the patient along with orthopedic follow up. There is no evidence of compartment syndrome neurovascular compromise today. 1538: CT of the head shows no acute intracranial abnormality and no acute fracture. CT of the cervical spine shows no malalignment or fracture either. Overall impression is patient is well-appearing she is able to ambulate safely with boot and crutches PT evaluation is not indicated today. She will be given orthopedic information. Patient will seek medical attention again for any concerns as detailed in her plan. She demonstrated verbal understanding of the plan and was in agreement she was discharged home stable work restrictions in place until otherwise cleared by Orthopedics. Differential Diagnosis Differential Diagnoses: The differential diagnosis associated with the presentation includes See MDM Admission/Observation Consideration of admission/observation: Escalation of care including admission/observation considered Patient would have been admitted to the hospital had her work up had any findings where hospital admission was appropriate and her clinical presentation warranted hospital admission. Independent Interpretation I performed an independent interpretation of an: Plain X-Ray and CT Scan Interpretation: Left knee: unremarkable Left ankle: spiral fx distal fibula Left foot: unremarkable Left hip: unremarkable CT cervical spine and HEAD: No ICH or fracture Radiology Impression Discussion of test interpretation with radiology: I have reviewed the radiologist's reading. Radiologist Impression: same as prelim specificially Left Ankle: Comminuted nondisplaced fracture of the distal fibula Independent Historian Clinical information obtained from an independent historian. History obtained from or confirmed by: Other (son) Tests considered The following testing was considered but not selected: Would have considered trauma scans of the CTA of the chest and abdomen and pelvis had patient has shown any concerns of other trauma. Would have considered lab work had patient but on any anticoagulation Prescription Management I considered prescription management with: Pain Medication Discharge Plan Discharge Clinical Impression: Fracture of distal end of left fibula, Strain of left knee and leg, Contusion of hip, left, Head injury, acute, without loss of consciousness, Cervical myofascial strain Patient Disposition: Home, Self-Care Instructions: Cervical Strain (DC), Ankle Fracture (DC), Concussion (ED), Hip Contusion (ED) Additional Instructions: You were seen in the emergency department today status post slip and fall and your stairs that resulted in multiple injuries. You had imaging done of your head which shows no brain bleed you also had imaging done of her cervical spine your left knee and your left hip which showed no evidence of fracture or dislocation. X-rays of your left ankle revealed a fibular fracture. This is a nonweightbearing bone however it is for structural support and still useful to use with walking therefore you have been given a tall boot and crutches for the 1st few days stay off of it but after that is weight-bearing as tolerated unless otherwise determined by orthopedics please call them to schedule an appointment. Failure to follow up with the specialist may result in bones not healing correctly and loss of proper function of your left lower extremity.? It is important to make and keep your appointment with the specialist.? In the meantime,? Use Motrin/Advil (ibuprofen) 400-600 mg every 6 to 8 hours? as needed for pain. No Motrin per 24 hours as even though he had a normal brain. Bleed can still increase the risk of bleeding. In addition, you can use Tylenol (acetaminophen) 650 mg every 6 hrs as needed for pain.? Do not take more than 3000 mg in one day! Elevate the extremity as much as possible Return immediately or call your doctor for increased or uncontrolled pain, numbness, tingling, or weakness of the injured body part. Please see an orthopedist as soon as possible. Be sure to call today to schedule an appointment. Head: Your neurologic exam was normal here. You have sustained an injury to your head.?? You have symptoms of a concussion.? We have found no evidence to indicate that your head injury was serious, however, new symptoms and unexpected complications can develop hours or even days after the injury. The first 24 hours are the most crucial and you should remain with a reliable agricultural engineering technicians at least during this period. If any of the following signs develop please go to the ER immediately. - Drowsiness/increased difficulty arousing the patient - Vomiting - Convulsions or fits - Bleeding or watery drainage from the nose or ear - Severe headache - Weakness or loss of feeling in the arm or leg - Confusion or strange behavior - One pupil (black part of the eye) becomes much larger than the other; peculiar eye movements, double vision, or other visual disturbances Please contact your PCP to arrange a followup appointment for reevaluation.?? Sometimes it can take more than a week for complete recovery. No strenuous exercise.? Avoid activity that requires higher level of concentration (reading, staring at screens - ie computer, cell phones). You should avoid any activity that you feel exacerbates your headache. As you begin to feel better you can slowly begin to introduce new activities until you are feeling well and are able to perform your usual activity without symptoms. You may eat or drink as usual if you so desire, however, you should not drink alcoholic beverages while experiencing concussive symptoms as this may exacerbate your symptoms. Do not use any pain medications stronger than Acetaminophen (Tylenol) for the first 24 hours. You have been given a prescription to use for severe pain this already contains Tylenol with it. You may take an additional 325 mg with a however do not exceed 3000 mg of Tylenol in 24 hours. Prescriptions: New acetaminophen-codeine 300-30 mg tablet 1 tab PO Q8H PRN (Reason: severe pain (scale score 7-10)) Qty: 10 0RF Rx Instructions: Patient may partially fill upon request No Action ibuprofen 800 mg tablet 800 mg PO Q8H PRN (Reason: pain) Qty: 14 0RF albuterol sulfate 90 mcg/actuation HFA aerosol inhaler 1 inh inhalation QID PRN (Reason: shortness of breath or wheezing) Qty: 8.5 0RF prednisone 20 mg tablet 20 mg PO DAILY 7 Days Qty: 7 0RF albuterol sulfate 90 mcg/actuation HFA aerosol inhaler 1 inh inhalation QID PRN (Reason: shortness of breath or wheezing) Qty: 8.5 0RF levothyroxine [Synthroid] 25 mcg tablet 25 mcg PO DAILY metoprolol succinate 25 mg capsule,sprinkle,ER 24hr 25 mg PO DAILY budesonide-formoterol [Symbicort] 160-4.5 mcg/actuation HFA aerosol inhaler inhalation albuterol sulfate 2.5 mg /3 mL (0.083 %) solution for nebulization inhalation Q4H PRN (DME) Myranda Carrillo [facility] Spacer See Rx Instructions .ROUTE DIRECTED Qty: 1 Rx Instructions: As directed famotidine 20 mg tablet 20 mg PO DAILY cetirizine 10 mg tablet 10 mg PO QAM Referrals: [facility] [Provider Group] Referral Note: distal fibula fracture Stand Alone Forms: Work/School Release Print Language: French
--- OUTSIDE RECORDS SUMMARY | 2025-02-18 15:48 | XMS_ITS | Clinical Summary ---
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 Name Role Phone Unavailable Primary Care Provider Unavailabl e Social History Tobacco Use Types Packs/Day Years Used Date Smoking Tobacco: Never Assessed Comments Unknown Sex and Gender Information Value Date Recorded Sex Assigned at Not on file Legal Sex Female 1:07 PM EDT Gender Identity Not on file Sexual Orientation Not on file Plan of Treatment Health Maintenance Due Date Last Done Comments Hepatitis C Virus Screening 1973 HIV Screening 1986 DTaP/Tdap/Td Vaccines (1 - Tdap) 1992 Hepatitis B Vaccines (1 of 3 - 19+ 3-dose series) 04/02 Pneumococcal Vaccines 50+ (1 of 1 - PCV) 2023 Zoster (Shingles) Vaccine (1 of 2) 2023 COVID-19 Vaccine ( - 2023- season) 2024
--- OUTSIDE RECORDS SUMMARY | 2025-02-18 15:48 | XMS_ITS | Clinical Summary ---
Author Organization [employer] Address [address] [facility] [address] [place] [address] Care Team Providers Care Harvest Manager Name Role Phone Keara Carbajal MD Primary Care Provider [phone] Allergies Active Allergy Reactions Criticality Noted Date Comments Methylprednisolone Anaphylaxis High 10/21/2023 Shellfish-Derived Products 3 Medications cetirizine (ZyrTEC) 10 MG tablet Take 1 tablet (10 mg) by mouth in the morning. 30 tablet 5 4 Active albuterol (ProAir HFA) 108 (90 Base) MCG/ACT inhalerIndicatio ns:Moderate persistent asthma with acute exacerbation inhale 2 puff by inhalation route every 4 - 6 hours as needed 18 g 4 Active famotidine (Pepcid) 20 MG tabletIndication s:RUQ abdominal pain Take 1 tablet (20 mg) by mouth 2 times daily. 60 tablet 11 4 Active albuterol 108 (90 Base) MCG/ACT inhaler Inhale 2 puffs every 4 (four) hours if needed for wheezing or shortness of breath. 18 g 1 4 Active Spacer/Aero-Hold ing Chambers (OptiChamber Lorena) misc 1 each every 4 (four) hours if needed (asthma). 1 each 4 Active albuterol (2.5 MG/3ML) 0.083% nebulizer solutionIndicati ons:Moderate persistent asthma without complication inhale 3 milliliter by nebulization route every 4 hours as needed 75 mL 4 Active budesonide-formo terol (Symbicort) 160-4.5 MCG/ACT inhaler Inhale 2 puffs in the morning and at bedtime. Rinse mouth with water after use to reduce aftertaste and incidence of candidiasis. Do not swallow. 1 each 11 4 Active Active Problems Problem Noted Date Diagnosed Date Screening for cervical cancer 11/29/2023 Assessment & Plan (11/29/2023 9:39 AM EDT): Patient prefers to be seen at [facility] Chronic sinusitis 06/16/2015 Moderate persistent asthma with exacerbation Assessment & Plan (11/29/2023 9:38 AM EDT): Neb given in clinic with some improvement Prednisone 40mg x 5 days Start Symbicort 2puffs BID after finishing prednsione Continue NARCISA via neb or MDI 4-6 puffs every 4-6 hours ER precautions Pulm referral placed due to uncontrolled asthma, consideratio of allergic component and need for Xolair Asthma 07/06/2013 Allergic rhinitis 07/06/2013 History of drug abuse 07/06/2013 Mixed anxiety and depressive disorder 07/06/2013 Tobacco dependence syndrome 07/06/2013 Encounters Date Type Department Care Team Description 02/18/2025 Orders Only [facility] External Provider, [facility] from Last 3 Months Immunizations Immunization Administration Dates Next Due Hep B, adult 01/06/2004 Influenza Injectable Quadriv alant Preservative Free IIV4 MDCK 06/05/2021 Influenza injectable quadriv alent IIV4 with preservative 06/16/2015 Influenza injectable quadrivalent preservative f ree 05/16/2019 Influenza, IIV3, injectable 06/06/2014, 2 Influenza, Split (incl. purified surface antigen ) 05/07/2013 Influenza, seasonal, injectable, preservative fr ee 05/11/2012 Pneumococcal Polysaccharide PPSV23 05/11/2012 TD (adult), 2 Lf tetanus tox oid, preservative free, adsorbed 01/06/2004 Tdap 09/18/2014 Zoster, Recombinant 09/17/2023 Social History Tobacco Use Types Packs/Day Years Used Date Smoking Tobacco: Former Cigarettes Passive Smoke Exposure: Never Smokeless Tobacco: Never Alcohol Use Standard Drinks/Week Comments Never 0 (1 standard drink = 0.6 oz pur e alcohol) Depression Answer Date Recorded Patient Health Questionnaire-9 Score 4 11/28/2023 Patient Health Questionnaire-9 Score 4 11/28/2023 Last PHQ-9: Questionnaire Data Not on file 0 11/28/2023 Housing Stability Answer Date Recorded What is your housing situation today? I have christie vazquez 11/28/[address] you li ve. Do you have problems with any of the following? None of the above 11/28/2023 Food Insecurity Answer Date Recorded Within the past 12 months, y ou worried that your food would run out before you got money to buy more: Never True 11/28/2023 Within the past 12 months,th e food you bought just didn't last and you didn't have enough money to get more: Never True Transportation Answer Date Recorded In the past 12 months, has l ack of transportation kept you from medical appts, meetings, work or from getting things needed for daily living? Yes, it has kept me from medical appointments or getting medications. 11/28/2023 Utilities Answer Date Recorded In the past 12 months, has t he electric, gas, oil or water company threatened to shut off services in your home? No 11/28/2023 Depression Answer Date Recorded Patient Health Questionnaire-2 Score 2 11/28/2023 Comments Unknown Sex and Gender Information Value Date Recorded Sex Assigned at Female 05/31/2022 10:16 AM EDT Legal Sex Female 10:16 AM EDT Gender Identity Female 05/31/2022 10:16 AM EDT Sexual Orientation Straight 05/31/2022 10 :16 AM EDT Last Filed Vital Signs Vital Sign Reading Time Taken Comments Blood Pressure 134/82 11/28/2023 11:39 AM EDT Pulse 95 11/28/2023 11:39 AM EDT Temperature 36.6 C (97.8 F) 11/28/2023 11:39 AM EDT Respiratory Rate 20 11/28/2023 11:39 AM EDT Oxygen Saturation 96% 11/28/2023 11:39 AM EDT Inhaled Oxygen Concentration - - Weight 90.1 kg (198 lb 9.6 oz) 11/28/2023 11:39 AM EDT Height 170.2 cm (5' 7 ) 11/28/2023 11:39 AM EDT Body Mass Index 31.11 11/28/2023 11:39 AM EDT Plan of Treatment Health Maintenance Due Date Last Done Comments CT Colonography 1973 Colonoscopy 1973 Colorectal Cancer Screening 1973 FIT DNA/Cologuard 1973 FIT 1973 FOBT 1973 HIV Screening 1973 Sigmoidoscopy 1973 Disability Screening 1973 Alcohol/Substance Use Screening 1985 Family Planning (PISQ) 1988 Hepatitis C Screening 1991 Pap Smear 1994 Hepatitis B Vaccines (2 of 3 - 19+ 3-dose series) 02/03/2004 01/06/2004 Pneumococcal Vaccine: 50+ Years (2 of 2 - PCV) 05/11/2013 05/11/2012 Zoster Vaccines (2 of 2) 11/12/2023 09/17/2023 COVID-19 Vaccine ( - 2023- season) 2024 10/14/2020, 09/16/2020 Cervical Cancer Screening 07/19/2024 HPV/Cotest 07/19/2024 07/19/2019 Mammogram 08/25/2024 08/25/2023, 02/0 04/2023, 09/09/2022, Additional history exists DTaP/Tdap/Td Vaccines (2 - Td or Tdap) 09/18/2024 09/18/2014, 01/06/2004 Depression Screening 11/27/2024 11/28/2023, 11/28/19 24 SDOH Screening 11/27/2024 11/28/2023 Tobacco Screening 11/27/2024 11/28/2023 Influenza Vaccine (#1) 2025 , 05/16/2019, 06/16/2015, Additional history exists RSV Patients and Patients Aged 60 years or older (1 - 1-dose 75+ series) 2048 HIB Vaccines Aged Out No longer eligi ble based on patient's age to complete this topic HPV Vaccines Aged Out No longer eligi ble based on patient's age to complete this topic Hepatitis A Vaccines Aged Out No long er eligible based on patient's age to complete this topic IPV Vaccines Aged Out No longer eligi ble based on patient's age to complete this topic Meningococcal B Vaccine Aged Out No l onger eligible based on patient's age to complete this topic Meningococcal Vaccine Aged Out No florin amrit eligible based on patient's age to complete this topic RSV under 20 months Aged Out No longe r eligible based on patient's age to complete this topic Rotavirus Vaccines Aged Out No longer eligible based on patient's age to complete this topic Procedures Procedure Name Priority Date/Time Associated Diagnosis Comments CT HEAD WO CONTRAST Routine 02/18/2025 2 :[address] CERVICAL SPINE WO CONTRAST Routine 02/18/2025 2:42 PM EDT BI MAMMOGRAM SCREENING TOMOSYNTHESIS BILATERAL Routine 08/25/2023 9:25 AM EST ZZZ HISTORICAL HPV MRNA E6/E7 Routine 07/19/2019 9:20 AM EST from Last 3 Months or Most Recently Relevant to Health Maintenance Results * CT Cervical Spine w/o Contrast (02/18/2025 2:42 PM EDT) Anatomical Region Laterality Modality Spine, C-spine Computed Tomogra phy 02/18/2025 2:42 PM EDT Narrative 02/18/2025 3:24 PM EDT [place] [address] [address] Scan Report Signed Patient: Alena Napier MR#: [id number] : 1975 Acct:[id number] Age/Sex: 49 / F ADM Date: 02/18/25 Loc: HO.ED Attending Dr: Ordering Physician: Giselle Gtz CNP Date of Service: 02/18/25 Procedure(s): CT cervical spine wo IV con Accession Number(s): [id number] cc: Giselle Gtz CNP; Keara Carbajal Report Number: [id number]: Total DLP = 365.00 mGy-cm EXAMINATION: CT CERVICAL SPINE WITHOUT IV CONTRAST HISTORY: fall, head injury, pain. TECHNIQUE: Helical CT of the cervical spine was performed per standard departmental protocol. Coronal and sagittal reformatted images were also evaluated. One or more of the following techniques was used for dose reduction: Automated exposure control, adjustment of the mA and/or kV according to patient size, use of iterative reconstruction technique. DLP: 366 mGy-cm COMPARISON: There are no prior studies available for comparison. FINDINGS: CERVICAL SPINE: The vertebral bodies maintain normal height and alignment without evidence of fracture or subluxation. The intervertebral disc spaces are preserved. Evaluation for disc pathology is limited by lack of intrathecal contrast material. BRAIN: The visualized portion of the brain is unremarkable. SINUSES: The visualized paranasal sinuses, mastoid air cells and middle ear cavities are unremarkable. LUNG APICES: The visualized lung apices are clear. SOFT TISSUES: There are prominent level I lymph nodes in the neck bilaterally measuring up to 1.3 cm in short axis dimension on the right and 1.9 cm in short axis dimension on the left. CT/CT cervical spine wo IV con IMPRESSION: 1. No evidence of fracture or malalignment of the cervical spine. 2. Prominent bilateral cervical lymph nodes as described. Clinical correlation is recommended. Electronically signed by: Aristeo Sagastume MD 02/18/2025 03:21 PM EDT RP Dictated By: Aristeo Sagastume MD Signed By: <Electronically signed by Aristeo Sagastume MD in OV> 02/18/25 1521 DD/ 1442 TD/TT: 02/18/25 1514 Check Embosser: Procedure Note Donotuseinterpreter, Image - 02/18/[address] [address] [address] Scan Report Signed Patient: Alena Napier JMR#: [id number] : 1975Acct:[id number] Age/Sex: 49 / FADM Date: 02/18/25 Loc: HO.ED Attending Dr: Ordering Physician: Giselle Gtz CNP Date of Service: 02/18/25 Procedure(s): CT cervical spine wo IV con Accession Number(s): [id number] cc: Giselle Gtz CNP; Solomon,Keara Report Number: [id number]: Total DLP = 365.00 mGy-cm EXAMINATION: CT CERVICAL SPINE WITHOUT IV CONTRAST HISTORY: fall, head injury, pain. TECHNIQUE: Helical CT of the cervical spine was performed per standard departmental protocol. Coronal and sagittal reformatted images were also evaluated. One or more of the following techniques was used for dose reduction: Automated exposure control, adjustment of the mA and/or kV according to patient size, use of iterative reconstruction technique. DLP: 366 mGy-cm COMPARISON: There are no prior studies available for comparison. FINDINGS: CERVICAL SPINE: The vertebral bodies maintain normal height and alignment without evidence of fracture or subluxation. The intervertebral disc spaces are preserved. Evaluation for disc pathology is limited by lack of intrathecal contrast material. BRAIN: The visualized portion of the brain is unremarkable. SINUSES: The visualized paranasal sinuses, mastoid air cells and middle ear cavities are unremarkable. LUNG APICES: The visualized lung apices are clear. SOFT TISSUES: There are prominent level I lymph nodes in the neck bilaterally measuring up to 1.3 cm in short axis dimension on the right and 1.9 cm in short axis dimension on the left. CT/CT cervical spine wo IV con IMPRESSION: 1. No evidence of fracture or malalignment of the cervical spine. 2. Prominent bilateral cervical lymph nodes as described. Clinical correlation is recommended. Electronically signed by: Aristeo Sagastume MD 02/18/2025 03:21 PM EDT Dictated By: Aristeo Sagastume MD Signed By: <Electronically signed by Aristeo Sagastume MD in OV> 02/18/25 1521 DD/ 1442 TD/TT: 02/18/25 1514 Check Embosser: us [facility] External Provider IMG CT PROCEDURES Final Result * CT Head w/o Contrast (02/18/2025 2:42 PM EDT) Anatomical Region Laterality Modality Head, Neck Computed Tomogra phy 02/18/2025 2:42 PM EDT Narrative 02/18/2025 3:26 PM EDT [address] [address] [address] Scan Report Signed Patient: Alena Napier MR#: [id number] : 1975 Acct:[id number] Age/Sex: 49 / F ADM Date: 02/18/25 Loc: HO.ED Attending Dr: Ordering Physician: Giselle Gtz CNP Date of Service: 02/18/25 Procedure(s): CT head/brain wo IV con Accession Number(s): [id number] cc: Giselle Gtz CNP; SolomonKeara Report Number: [id number]: Total DLP = 684.00 mGy-cm EXAMINATION: CT HEAD WITHOUT CONTRAST CLINICAL INFORMATION: Fall downstairs, head strike COMPARISON: None available. TECHNIQUE: Contiguous axial imaging was performed from the skull base to vertex without intravenous administration of contrast. This CT examination was performed using dose optimization techniques as appropriate, variously including the following: *Automated exposure control *Adjustment of mA and/or kV according to patient size (this includes techniques or standardized protocols for targeted exams where dose is matched to indication/reason for exam; i.e. extremities or head) *Use of iterative reconstruction technique FINDINGS: There is no evidence of intracranial hemorrhage or extra-axial fluid collection. There is no mass effect, or edema. No CT evidence of acute territorial infarct. Ventricles, sulci, and cisterns are normal in size and configuration for patient age. No hydrocephalus. No midline shift. Negative hyperdense MCA sign. Negative insular ribbon sign. No white matter abnormalities. Normal pituitary. Globes and orbital contents image normally. No extracranial soft tissue abnormalities. There are mucous retention cysts in the left greater than right maxillary sinuses. The remainder of the paranasal sinuses, mastoid air cells, and tympanic cavities are normally aerated. No suspicious bony abnormalities. There are no acute fractures evident. CT/CT head/brain wo IV con IMPRESSION: No acute intracranial abnormality. No acute fracture evident. Electronically signed by: Tommie Baca MD 02/18/2025 03:23 PM EDT Dictated By: Tommie Baca MD Signed By: <Electronically signed by Tommie Baca MD in OV> 02/18/25 1523 DD/ 1442 TD/TT: 02/18/25 1514 Check Embosser: Procedure Note Donotuseinterpreter, Image - 02/18/[address] [address] [address] Scan Report Signed Patient: Alena Napier JMR#: [id number] : 1975Acct:[id number] Age/Sex: 49 / FADM Date: 02/18/25 Loc: HO.ED Attending Dr: Ordering Physician: Giselle Gtz CNP Date of Service: 02/18/25 Procedure(s): CT head/brain wo IV con Accession Number(s): [id number] cc: Giselle Gtz CNP; Keara Carbajal Report Number: [id number]: Total DLP = 684.00 mGy-cm EXAMINATION: CT HEAD WITHOUT CONTRAST CLINICAL INFORMATION: Fall downstairs, head strike COMPARISON: None available. TECHNIQUE: Contiguous axial imaging was performed from the skull base to vertex without intravenous administration of contrast. This CT examination was performed using dose optimization techniques as appropriate, variously including the following: *Automated exposure control *Adjustment of mA and/or kV according to patient size (this includes techniques or standardized protocols for targeted exams where dose is matched to indication/reason for exam; i.e. extremities or head) *Use of iterative reconstruction technique FINDINGS: There is no evidence of intracranial hemorrhage or extra-axial fluid collection. There is no mass effect, or edema. No CT evidence of acute territorial infarct. Ventricles, sulci, and cisterns are normal in size and configuration for patient age. No hydrocephalus. No midline shift. Negative hyperdense MCA sign. Negative insular ribbon sign. No white matter abnormalities. Normal pituitary. Globes and orbital contents image normally. No extracranial soft tissue abnormalities. There are mucous retention cysts in the left greater than right maxillary sinuses. The remainder of the paranasal sinuses, mastoid air cells, and tympanic cavities are normally aerated. No suspicious bony abnormalities. There are no acute fractures evident. CT/CT head/brain wo IV con IMPRESSION: No acute intracranial abnormality. No acute fracture evident. Electronically signed by: Tommie Baca MD 02/18/2025 03:23 PM EDT Dictated By: Tommie Baca MD Signed By: <Electronically signed by Tommie Baca MD in OV> 02/18/25 1523 DD/ 1442 TD/TT: 02/18/25 1514 Check Embosser: [facility] External Provider IMG CT PROCEDURES Final Result * BI Mammogram Screening Tomosynthesis Bilateral (08/25/2023 9:25 AM EST) Anatomical Region Laterality Modality Breast Bilateral Mammography 08/25/2023 9:25 AM EST Narrative 09/06/2023 7:52 AM EST [address] [place] [address] Mammography Report Signed Patient: Alena Napier MR#: [id number] : 1975 Acct:[id number] Age/Sex: 48 / F ADM Date: 08/25/23 Loc: .MAMMO Attending Dr: Keara Carbajal MD Ordering Physician: Keara Carbajal Results: 1Negative Date of Service: 08/25/23 Follow Up: 1 Year From Orig ina Mammogram Procedure(s): MM tomosynthesis screening BI Accession Number(s): [id number] cc: Keara Carbajal EXAMINATION: MM SCREENING DIGITAL BREAST TOMOSYNTHESIS, BILATERAL CLINICAL INFORMATION: Screening. Asymptomatic. COMPARISON: Mammography: This study is compared with prior exams dating back to 2016. TECHNIQUE: Digital breast tomosynthesis is performed in both the craniocaudal and mediolateral oblique views along with computer-aided detection (CAD). Synthesized 2D images are generated from the tomosynthesis. FINDINGS: The breasts are heterogeneously dense, which may obscure small masses (ACR BI-RADS breast composition Category c). There are no significant masses, abnormal calcifications, or other abnormalities. MM/MM tomosynthesis screening BI IMPRESSION: No mammographic evidence of malignancy. ASSESSMENT: BI-RADS BI-RADS 1 - Negative RECOMMENDATION: Routine annual mammography screening. 1 year F/U This examination should not preclude the clinical evaluation of a suspicious palpable abnormality. This patient's information was entered into a reminder system with a target due date for their next mammogram. Dictated By: Callie Avila MD Signed By: <Electronically signed by Callie Avila MD in OV> 09/06/2349 DD/ 4 TD/TT: Check Embosser: Procedure Note Donotdeondreinterpreter, Image - [facility] [address] [place] [address] Mammography Report Signed Patient: Alena Napier JMR#: [id number] : 1975Acct:[id number] Age/Sex: 48 / FADM Date: 08/25/23 Loc: GARRETT Attending Dr: Keara Carbajal MD Ordering Physician: Brittany Carbajalults: 1Negative Date of Service: 08/25/23Follow Up: 1 Year From Orig inal Mammogram Procedure(s): MM tomosynthesis screening BI Accession Number(s): [id number] cc: Keara Carbajal EXAMINATION: MM SCREENING DIGITAL BREAST TOMOSYNTHESIS, BILATERAL CLINICAL INFORMATION: Screening. Asymptomatic. COMPARISON: Mammography: This study is compared with prior exams dating back to 2016. TECHNIQUE: Digital breast tomosynthesis is performed in both the craniocaudal and mediolateral oblique views along with computer-aided detection (CAD). Synthesized 2D images are generated from the tomosynthesis. FINDINGS: The breasts are heterogeneously dense, which may obscure small masses (ACR BI-RADS breast composition Category c). There are no significant masses, abnormal calcifications, or other abnormalities. MM/MM tomosynthesis screening BI IMPRESSION: No mammographic evidence of malignancy. ASSESSMENT: BI-RADS BI-RADS 1 - Negative RECOMMENDATION: Routine annual mammography screening. 1 year F/U This examination should not preclude the clinical evaluation of a suspicious palpable abnormality. This patient's information was entered into a reminder system with a target due date for their next mammogram. Dictated By: Callie Avila MD Signed By: <Electronically signed by Callie Avila MD in OV> 09/06/23 0749 DD/ 4 TD/TT: Check Embosser: Keara Carbajal MD IMG BI PROCEDURES Edited Resul t - Final * HPV mRNA E6/E7 (07/19/2019 9:20 AM EST) HPV mRNA E6/E7 Not Detected NOT DETECTED [facility] Comment: This test was performed using the APTIMA(R) HPV Assay ([employer] This assay detects E6/E7 viral messenger RNA (mRNA) from 14 high-risk HPV types (16,18,31,33,35,39,45,51, 52,56,58,59,66,68). For additional information please refer to: http://education.Fios/faq/AWX492p5 (This link is being provided for informational/ educational purposes only.) The analytical performance characteristics of this assay have been determined by [employer] [place], [place]. The modifications have not been cleared or approved by the FDA. This assay has been validated pursuant to the CLIA regulations and is used for clinical purposes. Test Performed by [facility], [employer] [facility] [place], [address] [place] [address] Meño Echeverria M.D., Ph.D., Director of Laboratories , CLIA [id number] Please note: Effective 04/12/2016, HPV testing will be performed using [employer]'s APTIMA test which targets mRNA. Detecting mRNA instead of DNA, as in older methods, offers significant improvements in specificity. 07/19/2019 9:20 AM EST us Alessandra Floyd CNM HISTORICAL/NON ORDERABLE LABS Final Result [facility] [address] from Last 3 Months or Most Recently Relevant to Health Maintenance Insurance [facility] C3 Care Teams Harvest Manager Relationship Specialty Start Date End Date Keara Carbajal MD [address] [place] [address] [place] [address] PCP - General Family Medicine 03/31/20
[2025-02-18 16:07] VITALS: BP 124/75; PULSE 73; RESP 18; TEMP 36.4; O2SAT 99
== END 2025-02-18 16:07 | disposition home or self-care (01) ==
PROVIDERS: Emergency Provider Emergency Medicine; PCP General Practice
DX: S82.455A Nondisplaced comminuted fracture of shaft of left fibula, initial encounter for closed fracture (principal); S09.90XA Unspecified injury of head, initial encounter; S86.812A Strain of other muscle(s) and tendon(s) at lower leg level, left leg, initial encounter; S16.1XXA Strain of muscle, fascia and tendon at neck level, initial encounter; S70.02XA Contusion of left hip, initial encounter; W10.8XXA Fall (on) (from) other stairs and steps, initial encounter; Y93.E2 Activity, laundry; Y92.038 Other place in apartment as the place of occurrence of the external cause; Y99.8 Other external cause status
CPT/HCPCS: 70450; 72125; 73502; 73564; 73610; 73630; 99284

== ENCOUNTER → 2025-02-18 14:03 | Outpatient (BNV) | payer MEDICAID, SELFPAY | PROVIDERS: Visit Provider Radiology Diagnostic Radiology | DX: R59.0 Localized enlarged lymph nodes (principal); S09.90XA Unspecified injury of head, initial encounter; M25.562 Pain in left knee; M25.552 Pain in left hip; W10.8XXA Fall (on) (from) other stairs and steps, initial encounter; S82.455A Nondisplaced comminuted fracture of shaft of left fibula, initial encounter for closed fracture | CPT/HCPCS: 70450; 72125; 73502; 73564; 73610; 73630 ==

== ENCOUNTER 2025-02-28 14:19 | Outpatient (REF) | payer MEDICAID, SELFPAY ==
--- NOTE | ~2025-02-28 | XR_ITS ---
EXAMINATION: XR ANKLE 3 OR MORE VIEWS LEFT HISTORY: M25.572 - Pain in left ankle and joints of left foot COMPARISON: Comparison is made with the prior examination dated 02/18/2025. FINDINGS: Three views of the left ankle are submitted. Osseous mineralization is normal. Again seen is an oblique nondisplaced fracture of the distal fibula. Fracture line remains visible. The joint spaces are preserved. There is persistent lateral soft tissue swelling. XR/XR ankle LT min 3V IMPRESSION: Oblique nondisplaced fracture of the distal fibula without change. Electronically signed by: Aristeo Sagastume MD 02/28/2025 03:05 PM EDT
--- OUTSIDE RECORDS SUMMARY | 2025-02-28 14:31 | XMS_ITS | Clinical Summary ---
Author Organization Formerly [facility] Address [address] [place] [address] Care Team Providers Care Coil Placer Name Role Phone Unavailable Primary Care Provider [...]
--- OUTSIDE RECORDS SUMMARY | 2025-02-28 14:31 | XMS_ITS | Clinical Summary ---
Author Organization [employer] Address [address] [facility] [address] [place] [address] Care Team Providers Care Lead Software Qa Engineer Name Role Phone Keara Carbajal MD Primary Care Provider [phone] Allergies Active Allergy Reactions Criticality Noted Date [...] EDT): Patient [place] [facility] Chronic sinusitis 06/16/2015 Moderate persistent asthma with [...] Department Care Team Description 02/18/2025 Orders Only [facility] External Provider, [facility] from Last 3 Months Immunizations Immunization [...] PM EDT Narrative 02/18/2025 3:24 PM EDT [place] [address] CT Scan Report Signed Patient: Alena Napier MR#: [id number] : 1975 Acct:[id number] Age/Sex: 49 / F ADM Date: 02/18/25 Loc: HO.ED Attending Dr: Ordering Physician: Giselle Gtz CNP Date of Service: 02/18/25 Procedure(s): CT cervical spine wo IV con Accession Number(s): [id number] cc: Giselle Gtz CNP; Keara Carbajal Report Number: [id number]: Total DLP = 365.00 mGy-cm EXAMINATION: CT [...] 02/18/25 1521 DD/ 1442 TD/TT: 02/18/25 1514 Feed Research Technician: Procedure Note Donotuseinterpreter, Image - 02/18/[address] [address] [address] Scan Report Signed Patient: Alena Napier JMR#: [id number] : 1975Acct:[id number] Age/Sex: 49 / FADM Date: 02/18/25 Loc: HO.ED Attending Dr: Ordering Physician: Giselle Gtz CNP Date of Service: 02/18/25 Procedure(s): CT cervical spine wo IV con Accession Number(s): [id number] cc: Giselle Gtz CNP; Solomon,Keara Report Number: [id number]: Total DLP = 365.00 mGy-cm EXAMINATION: CT [...] 02/18/25 1521 DD/ 1442 TD/TT: 02/18/25 1514 Feed Research Technician: us [facility] External Provider IMG CT PROCEDURES Final Result * CT Head w/o Contrast (02/18/2025 2:42 PM EDT) Anatomical Region Laterality Modality Head, Neck Computed Tomogra phy 02/18/2025 2:42 PM EDT Narrative 02/18/2025 3:26 PM EDT [address] [address] [address] Scan Report Signed Patient: Alena Napier MR#: [id number] : 1975 Acct:[id number] Age/Sex: 49 / F ADM Date: 02/18/25 Loc: HO.ED Attending Dr: Ordering Physician: Giselle Gtz CNP Date of Service: 02/18/25 Procedure(s): CT head/brain wo IV con Accession Number(s): [id number] cc: Giselle Gtz CNP; SolomonKeara Report Number: [id number]: Total DLP = 684.00 mGy-cm EXAMINATION: CT [...] 02/18/25 1523 DD/ 1442 TD/TT: 02/18/25 1514 Feed Research Technician: Procedure Note Donotuseinterpreter, Image - 02/18/[address] [address] [address] Scan Report Signed Patient: Alena Napier JMR#: [id number] : 1975Acct:[id number] Age/Sex: 49 / FADM Date: 02/18/25 Loc: HO.ED Attending Dr: Ordering Physician: Giselle Gtz CNP Date of Service: 02/18/25 Procedure(s): CT head/brain wo IV con Accession Number(s): [id number] cc: Giselle Gtz CNP; Keara Carbajal Report Number: [id number]: Total DLP = 684.00 mGy-cm EXAMINATION: CT [...] 02/18/25 1523 DD/ 1442 TD/TT: 02/18/25 1514 Feed Research Technician: [facility] External Provider IMG CT PROCEDURES Final Result * BI Mammogram Screening Tomosynthesis Bilateral (08/25/2023 9:25 AM EST) Anatomical Region Laterality Modality Breast Bilateral Mammography 08/25/2023 9:25 AM EST Narrative 09/06/2023 7:52 AM EST [address] [place] [address] Mammography Report Signed Patient: Alena Napier MR#: [id number] : 1975 Acct:[id number] Age/Sex: 48 / F ADM Date: 08/25/23 Loc: .MAMMO Attending Dr: Keara Carbajal MD Ordering Physician: Keara Carbajal Results: 1Negative Date of Service: 08/25/23 Follow Up: 1 Year From Orig ina Mammogram Procedure(s): MM tomosynthesis screening BI Accession Number(s): [id number] cc: Keara Carbajal EXAMINATION: MM SCREENING DIGITAL [...] MD in OV> 09/06/2349 DD/ 4 TD/TT: Feed Research Technician: Procedure Note Donotdeondreinterpreter, Image - 09/06/20[facility] [address] [place] [address] Mammography Report Signed Patient: Alena Napier JMR#: [id number] : 1975Acct:[id number] Age/Sex: 48 / FADM Date: 08/25/23 Loc: GARRETT Attending Dr: Keara Carbajal MD Ordering Physician: Brittany Carbajalults: 1Negative Date of Service: 08/25/23Follow Up: 1 Year From Orig inal Mammogram Procedure(s): MM tomosynthesis screening BI Accession Number(s): [id number] cc: Keara Carbajal EXAMINATION: MM SCREENING DIGITAL [...] in OV> 09/06/23 0749 DD/ 4 TD/TT: Feed Research Technician: Keara Carbajal MD IMG BI PROCEDURES Edited Resul t - Final * HPV mRNA E6/E7 (07/19/2019 9:20 AM EST) HPV mRNA E6/E7 Not Detected NOT DETECTED [facility] Comment: This test was performed using the APTIMA(R) HPV Assay ([employer] This assay detects E6/E7 viral messenger RNA (mRNA) from 14 high-risk HPV types (16,18,31,33,35,39,45,51, 52,56,58,59,66,68). For additional information please refer to: http://education.Quintiq/faq/PVA816g3 (This link is being provided for informational/ educational purposes only.) The analytical performance characteristics of this assay have been determined by [employer] [place], [place]. The modifications have not been cleared or approved by the FDA. This assay has been validated pursuant to the CLIA regulations and is used for clinical purposes. Test Performed by [facility] [facility], [facility] [place], [address] [place] [address] Meño Echeverria M.D., Ph.D., Director of Laboratories , CLIA [id number] Please note: Effective 04/12/2016, HPV testing will be performed using [employer]'s APTIMA test which targets mRNA. Detecting mRNA instead of DNA, as in older methods, offers significant improvements in specificity. 07/19/2019 9:20 AM EST us Alessandra Floyd CNM HISTORICAL/NON ORDERABLE LABS Final Result [facility] [address] from Last 3 Months or Most Recently Relevant to Health Maintenance Insurance [facility] C3 Care Teams Lead Software Qa Engineer Relationship Specialty Start Date End Date Keara Carbajal MD [address] [place] [address] [place] [address] PCP - General Family Medicine 03/31/20
== END 2025-02-28 14:20 | disposition home or self-care (01) ==
LOC: HO.HOSX 14:19
PROVIDERS: Visit Provider Physician Assistant
DX: S82.892D Other fracture of left lower leg, subsequent encounter for closed fracture with routine healing (principal); M25.572 Pain in left ankle and joints of left foot; M79.89 Other specified soft tissue disorders; Z79.899 Other long term (current) drug therapy; W10.8XXD Fall (on) (from) other stairs and steps, subsequent encounter
CPT/HCPCS: 27786; 29405; 73610; 99212

== ENCOUNTER 2025-02-28 14:28 | Outpatient (AMB) | payer MEDICAID, SELFPAY ==
--- NOTE | 2025-02-28 14:47 | MHC.OFFVIS ---
Vital Signs 02/28/25 14:56 Height 5 ft 7 in Weight 180 lb BMI 28.2 Intake Visit Reasons: FC-LT distal fibular fx Intake Note: Alena is a 49 year old female who presents today for an ER follow up of left distal fibular fracture, DOI 02/18/25. Patient presented to [facility] ER after she sustained a fall down the stairs. Her pain is located at the lateral aspect of lower leg and her ankle. Her pain increases with weight bear or with certain positions of her foot. Complains of a pinching sensation as well as numbness and tingling in her foot. She was prescribed Tylenol with codeine from the ER, that provides some relief. Allergies methylprednisolone (From Solu-Medrol) Allergy (Severe, Verified 02/28/25 14:50) Hives Iodinated Contrast Media (IV CONTRAST) Allergy (Intermediate, Verified 02/28/25 14:50) RASH pollen extracts (POLLEN) Allergy (Unknown, Verified 02/28/25 14:50) ITCHY, WATERY EYES, SNEEZING Medication List - Last Reconciled 02/28/25 by Juan Manuel Sen PA-C acetaminophen-codeine 300-30 mg 1 tab PO Q8H PRN albuterol sulfate 90 mcg/actuation 1 inh inhalation QID PRN albuterol sulfate 90 mcg/actuation 1 inh inhalation QID PRN albuterol sulfate mg inhalation Q4H PRN budesonide-formoterol 160-4.5 mcg/actuation (Symbicort) inhalation ibuprofen 800 mg PO Q8H PRN inhalational spacing device (OptiChamber Lorena C spacer) As directed levothyroxine (Synthroid) 25 mcg PO DAILY HPI HPI FC-LT distal fibular fx: Details: 49-year-old female presents to the office today for an injury she sustained to left ankle on 02/18/25. She states she was carrying a basket the stairs when she fell twisting ankle. She had immediate pain and was unable to put full weight the ankle therefore she was seen in the emergency department where x-rays were obtained resulting in a distal fibular fracture with moderate displacement. Patient was placed in a walking boot and referred to our office for ortho eval. 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 She has tried to put weight on the left ankle however due to the pain she has been unsuccessful. 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 Female Reproductive History Menstrual Age of Menarche: 10 Review of Systems Const All systems reviewed & are unremarkable except as noted in HPI and below Physical Exam Vital Signs: BMI result Body Mass Index 28.2 Const General: cooperative, healthy appearing, comfortable and no acute distress Orientation/consciousness: patient oriented x3 HEENT Head: Yes normal to inspection and Yes atraumatic Ears: hearing grossly normal bilaterally Eyes General: appearance normal, both eyes and all related structures Neck Neck: Yes normal visual inspection and Yes no lymphadenopathy Resp Effort & Inspection: normal respiratory effort and able to speak in complete sentences Cardio Peripheral pulses: Peripheral pulses 2+ throughout Neuro General: patient oriented x3 Extrem Other: Left ankle normal to inspection no open wounds or abrasions she does have mild soft tissue swelling the lateral aspect of the ankle which extends into the foot. Tenderness over the distal fibula. Neurovascularly intact. Psych Appearance: well kempt Office Procedures AMB Fracture Care Fracture Billing Code: Fracture Billing Code Casting/Splints [id number] Leg Cast Application Procedure code (CPT) selection complete Results Reviewed Results Reviewed: X-rays of the left ankle obtained in the office today and reviewed by me show a distal fibular fracture with mild displacement, ankle mortise intact Assessment & Plan Assessment & Plan (1) Closed left ankle fracture: Code(s): S82.892A - Other fracture of left lower leg, initial encounter for closed fracture Category: Medical Plan: Images were reviewed with Dr. Ac. Due to the level of fracture above the mortise there is a high risk of syndesmosis disruption. The options today would be to bring the patient to the operating room and perform an examination under anesthesia to properly evaluate the syndesmosis and mortise. If there is widening the recommendation would be to then perform an open reduction internal fixation of the left ankle. If there is no disruption for widening of the mortise, we would then place her in a short-leg cast and she would be nonweightbearing for a total of 6 weeks post injury. The patient is unsure if she would like to proceed with this procedure therefore she was placed in a short-leg cast and made nonweightbearing at this time. She will discuss this with her family and reach out to me within the next day or 2 to decide if she would like to proceed with surgical intervention. I did explain to the patient if we treat this nonoperatively get would be a cast for 6 weeks nonweightbearing. We can not predict the stability of the ankle joint thereafter. There are risks of joint collapse and arthritis. She does express understanding. I also explained the benefits and risks to surgical intervention. The risks 2 left ankle open reduction internal fixation would be hardware failure. For infection, blood clots, nerve or cushion damage to surrounding structures, injury to bone, injury to knee small vessels, need for further surgeries. There is also a risk for intraoperative complications which could include . The patient does express understanding and will contact us if she does decide to proceed with left ankle examination under anesthesia with possible open reduction internal fixation with Dr. Ac. Orders: Orders XR ankle LT min 3V 02/28/25 M25.572 - Pain in left ankle and joints of left foot Coding Level of Care Code New Pt Level 4 (72459) Complex EM visit Add On G2211 Diagnoses Closed left ankle fracture S82.892A CPT Codes Fracture Care - Fracture Billing Code: Fracture Billing Code ([id number]) Casting - CPT: 42447-Hznwl Leg Cast Application ([id number])
[2025-02-28 14:56] VITALS: BMI 28.2
== END 2025-02-28 16:12 | disposition home or self-care (01) ==
PROVIDERS: PCP General Practice; Visit Provider Physician Assistant
DX: S82.892A Other fracture of left lower leg, initial encounter for closed fracture (principal)
CPT/HCPCS: 29405; 99204

== ENCOUNTER → 2025-02-28 14:32 | Outpatient (BNV) | payer MEDICAID, SELFPAY | PROVIDERS: Visit Provider Radiology Diagnostic Radiology | DX: S82.435K Nondisplaced oblique fracture of shaft of left fibula, subsequent encounter for closed fracture with nonunion (principal) | CPT/HCPCS: 73610 ==

== ENCOUNTER 2025-03-15 | Outpatient (REF) | payer SELFPAY ==
--- NOTE | ~2025-03-15 | XR_ITS ---
EXAMINATION: XR ANKLE 3 OR MORE VIEWS LEFT HISTORY: M25.572 - Pain in left ankle and joints of left foot COMPARISON: Comparison is made with the prior examination dated 02/28/2025. FINDINGS: Three casted views of the left ankle are submitted. The fiberglass cast obscures fine bony detail. Again seen is a minimally displaced oblique fracture of the distal fibula. The fracture line remains visible. The joint spaces are preserved. There is diffuse soft tissue swelling. XR/XR ankle LT min 3V IMPRESSION: Minimally displaced oblique fracture of the distal fibula without change. Electronically signed by: Aristeo Sagastume MD 03/15/2025 11:05 AM EDT
--- OUTSIDE RECORDS SUMMARY | 2025-03-28 16:13 | XMS_ITS | Encounter Summary ---
Author Organization [employer] Address [address] [place] [address] 7[address] [place] [address] Care Team Providers Care Risk Management Consultant Name Role Phone Keara Carbajal MD Primary Care Provider [phone] Encounter Details Date Type Department Care Team (Late st Contact Info) Description 09/17/2022 Abstract [facility] MEDICINE [address], [place] [id number] Keara Carbajal MD [address] [place] [address] Social History Tobacco Use Types Packs/Day Years Used Date Smoking Tobacco: Never Assessed Comments Unknown Sex and Gender Information Value Date Recorded Sex Assigned at Female 05/31/2022 10:16 AM EDT Legal Sex Female 10:16 AM EDT Gender Identity Female 05/31/2022 10:16 AM EDT Sexual Orientation Straight 05/31/2022 10 :16 AM EDT documented as of this encounter Plan of Treatment Not on file documented as of this encounter Procedures Procedure Name Priority Date/Time Associated Diagnosis Comments US BREAST BIOPSY LEFT Routine 09/15/2022 11:30 AM EST documented in this encounter Results * US Breast Biopsy Left (09/15/2022 11:30 AM EST) Anatomical Region Laterality Modality Ultrasound Narrative 09/15/2022 11:30 AM EST Benign breast biopsy us Historical Provider MD DEWITT US PROCEDURES Final R esult documented in this encounter Visit Diagnoses Not on filedocumented in this encounter Care Teams Risk Management Consultant Relationship Specialty Start Date End Date Keara Carbajal MD [address] [place], [place] [id number] PCP - General Family Medicine 03/31/20 documented as of this encounter
--- OUTSIDE RECORDS SUMMARY | 2025-03-28 16:13 | XMS_ITS | Encounter Summary ---
Author Organization [employer] Address [address] [facility] 7t [place] [address] Care Team Providers Care Decommissioning Well Site Manager Name Role Phone Keara Carbajal MD Primary Care Provider [phone] Encounter Details Date Type Department Care Team (Late st Contact Info) Description 09/10/2022 Abstract [facility] MEDICINE [address] [place] [address] Provider, MD Edelmira Social History Tobacco Use Types Packs/Day Years [...] on file documented as of this encounter Visit Diagnoses Not on filedocumented in this encounter Care Teams Decommissioning Well Site Manager Relationship Specialty Start Date End Date Keara Carbajal MD [address] [place] [address] PCP - General Family Medicine 03/31/20 documented as of this encounter
--- OUTSIDE RECORDS SUMMARY | 2025-03-28 16:13 | XMS_ITS | Clinical Summary ---
Author Organization [employer] Address [address] [facility] 7t [place] [address] Care Team Providers Care Bottle Tester Name Role Phone Keara Carbajal MD Primary Care Provider [phone] Allergies Active Allergy Reactions Criticality Noted Date [...] EDT): Patient prefers to be seen at [facility] Chronic sinusitis 06/16/2015 Moderate [...] Department Care Team Description 02/18/2025 Orders Only [facility] External Provider, [facility] from Last 3 Months Immunizations [...] PM EDT Narrative 02/18/2025 3:24 PM EDT [place] [address] [address] Scan Report Signed Patient: Alena Napier MR#: [id number] : 1975 Acct:[id number] Age/Sex: 49 / F ADM Date: 02/18/25 Loc: HO.ED Attending Dr: Ordering Physician: Giselle Gtz CNP Date of Service: 02/18/25 Procedure(s): CT cervical spine wo IV con Accession Number(s): [id number] cc: Giselle Gtz CNP; Keara Carbajal Report Number: [id number]: Total DLP = 365.00 mGy-cm EXAMINATION: CT [...] 02/18/25 1521 DD/ 1442 TD/TT: 02/18/25 1514 Vice President Tax: Procedure Note Donotuseinterpreter, Image - 02/18/[address] [address] [address] Scan Report Signed Patient: Alena Napier JMR#: [id number] : 1975Acct:[id number] Age/Sex: 49 / FADM Date: 02/18/25 Loc: HO.ED Attending Dr: Ordering Physician: Giselle Gtz CNP Date of Service: 02/18/25 Procedure(s): CT cervical spine wo IV con Accession Number(s): [id number] cc: Giselle Gtz CNP; Solomon,Keara Report Number: [id number]: Total DLP = 365.00 mGy-cm EXAMINATION: CT [...] 02/18/25 1521 DD/ 1442 TD/TT: 02/18/25 1514 Vice President Tax: us [facility] External Provider IMG CT PROCEDURES Final Result * CT Head w/o Contrast (02/18/2025 2:42 PM EDT) Anatomical Region Laterality Modality Head, Neck Computed Tomogra phy 02/18/2025 2:42 PM EDT Narrative 02/18/2025 3:26 PM EDT [address] [address] [address] Scan Report Signed Patient: Alena Napier MR#: [id number] : 1975 Acct:[id number] Age/Sex: 49 / F ADM Date: 02/18/25 Loc: HO.ED Attending Dr: Ordering Physician: Giselle Gtz CNP Date of Service: 02/18/25 Procedure(s): CT head/brain wo IV con Accession Number(s): [id number] cc: Giselle Gtz CNP; [place]ear[place] Report Number: [id number]: Total DLP = 684.00 mGy-cm EXAMINATION: CT [...] 02/18/25 1523 DD/ 1442 TD/TT: 02/18/25 1514 Vice President Tax: Procedure Note Donotuseinterpreter, Image - 02/18/[address] [address] [address] Scan Report Signed Patient: Alena Napier JMR#: [id number] : 1975Acct:[id number] Age/Sex: 49 / FADM Date: 02/18/25 Loc: HO.ED Attending Dr: Ordering Physician: Giselle Gtz CNP Date of Service: 02/18/25 Procedure(s): CT head/brain wo IV con Accession Number(s): [id number] cc: Giselle Gtz CNP; Keara Carbajal Report Number: [id number]: Total DLP = 684.00 mGy-cm EXAMINATION: CT [...] 02/18/25 1523 DD/ 1442 TD/TT: 02/18/25 1514 Vice President Tax: [facility] External Provider IMG CT PROCEDURES Final Result * BI Mammogram Screening Tomosynthesis Bilateral (08/25/2023 9:25 AM EST) Anatomical Region Laterality Modality Breast Bilateral Mammography 08/25/2023 9:25 AM EST Narrative 09/06/2023 7:52 AM EST [address] [place] [address] Mammography Report Signed Patient: Alena Napier MR#: [id number] : 1975 Acct:[id number] Age/Sex: 48 / F ADM Date: 08/25/23 Loc: .MAMMO Attending Dr: Keara Carbajal MD Ordering Physician: Keara Carbajal Results: 1Negative Date of Service: 08/25/23 Follow Up: 1 Year From Orig ina Mammogram Procedure(s): MM tomosynthesis screening BI Accession Number(s): [id number] cc: Keara Carbajal EXAMINATION: MM SCREENING DIGITAL [...] MD in OV> 09/06/2349 DD/ 4 TD/TT: Vice President Tax: Procedure Note Donotdeondreinterpreter, Image - 09/06/2023 [facility] [address] [place] [address] Mammography Report Signed Patient: Alena Napier JMR#: [id number] : 1975Acct:[id number] Age/Sex: 48 / FADM Date: 08/25/23 Loc: GARRETT Attending Dr: Keara Carbajal MD Ordering Physician: Brittany Carbajalults: 1Negative Date of Service: 08/25/23Follow Up: 1 Year From Orig inal Mammogram Procedure(s): MM tomosynthesis screening BI Accession Number(s): [id number] cc: Keara Carbajal EXAMINATION: MM SCREENING DIGITAL [...] in OV> 09/06/23 0749 DD/ 4 TD/TT: Vice President Tax: Keara Carbajal MD IMG BI PROCEDURES Edited Resul t - Final * HPV mRNA E6/E7 (07/19/2019 9:20 AM EST) HPV mRNA E6/E7 Not Detected NOT DETECTED [facility] Comment: This test was performed using the APTIMA(R) HPV Assay ([employer] This assay detects E6/E7 viral messenger RNA (mRNA) from 14 high-risk HPV types (16,18,31,33,35,39,45,51, 52,56,58,59,66,68). For additional information please refer to: http://education.Genomera/faq/RMU495y3 (This link is being provided for informational/ educational purposes only.) The analytical performance characteristics of this assay have been determined by [employer] [place], [place]. The modifications have not been cleared or approved by the FDA. This assay has been validated pursuant to the CLIA regulations and is used for clinical purposes. Test Performed by [employer] [facility], [employer] [place], [address] [place] [address] Meño Echeverria M.D., Ph.D., Director of Laboratories , CLIA [id number] Please note: Effective 04/12/2016, HPV testing will be performed using [employer]'s APTIMA test which targets mRNA. Detecting mRNA instead of DNA, as in older methods, offers significant improvements in specificity. 07/19/2019 9:20 AM EST us Alessandra Floyd CNM HISTORICAL/NON ORDERABLE LABS Final Result [facility] [address] from Last 3 Months or Most Recently Relevant to Health Maintenance Insurance [facility] C3 Care Teams Bottle Tester Relationship Specialty Start Date End Date Keara Carbajal MD [address] [place] [address] [place] [address] PCP - General Family Medicine 03/31/20
== END 2025-03-15 00:01 | disposition home or self-care (01) ==
LOC: HO.HOSX
PROVIDERS: Visit Provider Physician Assistant
DX: S82.402A Unspecified fracture of shaft of left fibula, initial encounter for closed fracture (principal); M25.572 Pain in left ankle and joints of left foot; J45.909 Unspecified asthma, uncomplicated; X58.XXXA Exposure to other specified factors, initial encounter; Z79.51 Long term (current) use of inhaled steroids; Z87.891 Personal history of nicotine dependence
CPT/HCPCS: 27786; 29405; 73610; 99212

== ENCOUNTER 2025-03-15 09:50 | Outpatient (AMB) | payer SELFPAY ==
--- OUTSIDE RECORDS SUMMARY | 2025-03-15 10:04 | XMS_ITS | Clinical Summary ---
Author Organization [employer] Address [address] [facility] [address] [place] [address] Care Team Providers Care Cross Tie Cutter Name Role Phone Keara Carbajal MD Primary Care Provider Allergies Active Allergy Reactions Criticality Noted Date [...] EDT): Patient prefers to be seen at [facility] Chronic sinusitis 06/16/2015 Moderate persistent asthma with [...] Department Care Team Description 02/18/2025 Orders Only [facility] External Provider, [facility] from Last 3 Months Immunizations Immunization [...] PM EDT Narrative 02/18/2025 3:24 PM EDT [place] [address] CT Scan Report Signed Patient: Alena Napier MR#: [id number] : 1975 Acct:[id number] Age/Sex: 49 / F ADM Date: 02/18/25 Loc: HO.ED Attending Dr: Ordering Physician: Giselle Gtz CNP Date of Service: 02/18/25 Procedure(s): CT cervical spine wo IV con Accession Number(s): [id number] cc: Giselle Gtz CNP; Keara Carbajal Report Number: [id number]: Total DLP = 365.00 mGy-cm EXAMINATION: CT [...] 02/18/25 1521 DD/ 1442 TD/TT: 02/18/25 1514 Locomotive Boilermaker: Procedure Note Donotuseinterpreter, Image - 02/18/[address] [address] [address] Scan Report Signed Patient: Alena Napier JMR#: [id number] : 1975Acct:[id number] Age/Sex: 49 / FADM Date: 02/18/25 Loc: HO.ED Attending Dr: Ordering Physician: Giselle tGz CNP Date of Service: 02/18/25 Procedure(s): CT cervical spine wo IV con Accession Number(s): [id number] cc: Giselle Gtz CNP; Solomon,Keara Report Number: [id number]: Total DLP = 365.00 mGy-cm EXAMINATION: CT [...] 02/18/25 1521 DD/ 1442 TD/TT: 02/18/25 1514 Locomotive Boilermaker: us [facility] External Provider IMG CT PROCEDURES Final Result * CT Head w/o Contrast (02/18/2025 2:42 PM EDT) Anatomical Region Laterality Modality Head, Neck Computed Tomogra phy 02/18/2025 2:42 PM EDT Narrative 02/18/2025 3:26 PM EDT [address] [address] [address] Scan Report Signed Patient: Alena Napier MR#: [id number] : 1975 Acct:[id number] Age/Sex: 49 / F ADM Date: 02/18/25 Loc: HO.ED Attending Dr: Ordering Physician: Giselle Gtz CNP Date of Service: 02/18/25 Procedure(s): CT head/brain wo IV con Accession Number(s): [id number] cc: Giselle Gtz CNP; CaribouKeara Report Number: [id number]: Total DLP = 684.00 mGy-cm EXAMINATION: CT [...] 02/18/25 1523 DD/ 1442 TD/TT: 02/18/25 1514 Locomotive Boilermaker: Procedure Note Donotuseinterpreter, Image - 02/18/[address] [address] [address] Scan Report Signed Patient: Alena Napier JMR#: [id number] : 1975Acct:[id number] Age/Sex: 49 / FADM Date: 02/18/25 Loc: HO.ED Attending Dr: Ordering Physician: Giselle Gtz CNP Date of Service: 02/18/25 Procedure(s): CT head/brain wo IV con Accession Number(s): [id number] cc: Giselle Gtz CNP; Keara Carbajal Report Number: [id number]: Total DLP = 684.00 mGy-cm EXAMINATION: CT [...] 02/18/25 1523 DD/ 1442 TD/TT: 02/18/25 1514 Locomotive Boilermaker: [facility] External Provider IMG CT PROCEDURES Final Result * BI Mammogram Screening Tomosynthesis Bilateral (08/25/2023 9:25 AM EST) Anatomical Region Laterality Modality Breast Bilateral Mammography 08/25/2023 9:25 AM EST Narrative 09/06/2023 7:52 AM EST [address] [place] [address] Mammography Report Signed Patient: Alena Napier MR#: [id number] : 1975 Acct:[id number] Age/Sex: 48 / F ADM Date: 08/25/23 Loc: .MAMMO Attending Dr: Keara Carbajal MD Ordering Physician: Keara Carbajal Results: 1Negative Date of Service: 08/25/23 Follow Up: 1 Year From Orig ina Mammogram Procedure(s): MM tomosynthesis screening BI Accession Number(s): [id number] cc: Keara Carbajal EXAMINATION: MM SCREENING DIGITAL [...] MD in OV> 09/06/2349 DD/ 4 TD/TT: Locomotive Boilermaker: Procedure Note Donotdeondreinterpreter, Image - 09/06/2023 [facility] [address] [place] [address] Mammography Report Signed Patient: Alena Napier JMR#: [id number] : 1975Acct:[id number] Age/Sex: 48 / FADM Date: 08/25/23 Loc: GARRETT Attending Dr: Keara Carbajal MD Ordering Physician: Brittany Carbajalults: 1Negative Date of Service: 08/25/23Follow Up: 1 Year From Orig inal Mammogram Procedure(s): MM tomosynthesis screening BI Accession Number(s): [id number] cc: Keara Carbajal EXAMINATION: MM SCREENING DIGITAL [...] in OV> 09/06/23 0749 DD/ 4 TD/TT: Locomotive Boilermaker: Keara Carbajal MD IMG BI PROCEDURES Edited Resul t - Final * HPV mRNA E6/E7 (07/19/2019 9:20 AM EST) HPV mRNA E6/E7 Not Detected NOT DETECTED [facility] Comment: This test was performed using the APTIMA(R) HPV Assay ([employer] This assay detects E6/E7 viral messenger RNA (mRNA) from 14 high-risk HPV types (16,18,31,33,35,39,45,51, 52,56,58,59,66,68). For additional information please refer to: http://education.Mobilization Labs/faq/BKY757c6 (This link is being provided for informational/ educational purposes only.) The analytical performance characteristics of this assay have been determined by [employer] [place], [place]. The modifications have not been cleared or approved by the FDA. This assay has been validated pursuant to the CLIA regulations and is used for clinical purposes. Test Performed by [facility] [employer] [facility], [employer] [place], [address] [place] [address] Meño Echeverria M.D., Ph.D., Director of Laboratories , CLIA [id number] Please note: Effective 04/12/2016, HPV testing will be performed using [employer]'s APTIMA test which targets mRNA. Detecting mRNA instead of DNA, as in older methods, offers significant improvements in specificity. 07/19/2019 9:20 AM EST us Alessandra Floyd CNM HISTORICAL/NON ORDERABLE LABS Final Result [facility] [address] from Last 3 Months or Most Recently Relevant to Health Maintenance Insurance [facility] C3 Care Teams Cross Tie Cutter Relationship Specialty Start Date End Date Keara Carbajal MD [address] [place] [address] [place] [address] PCP - General Family Medicine 03/31/20
--- OUTSIDE RECORDS SUMMARY | 2025-03-15 10:04 | XMS_ITS | Clinical Summary ---
Author Organization Formerly [facility] Address [address] [place] [address] Care Team Providers Care Compressed Gases Tester Name Role Phone Unavailable Primary Care Provider [...]
[2025-03-15 10:17] VITALS: BMI 28.2
--- NOTE | 2025-03-15 10:17 | MHC.OFFVIS ---
Vital Signs 03/15/25 10:17 Height 5 ft 7 in Weight 180 lb BMI 28.2 Intake Visit Reasons: OV-Left distal fibular fracture, DOI 02/18/25 Intake Note: Alena is a 49 year old female who presents today for a follow up of left distal fibular fracture, DOI 02/18/25. At patient last visit she was placed in a short leg cast and discuss with her family with moving forward with surgery. She will follow up in 2 weeks with repeat x-rays in cast. Patient reports that she is struggling with trying to do things that she normally does. States that she has no concerns of pain, as she has not had any. Allergies methylprednisolone (From Solu-Medrol) Allergy (Severe, Verified 03/15/25 10:19) Hives Iodinated Contrast Media (IV CONTRAST) Allergy (Intermediate, Verified 03/15/25 10:19) RASH pollen extracts (POLLEN) Allergy (Unknown, Verified 03/15/25 10:19) ITCHY, WATERY EYES, SNEEZING Medication List - Last Reconciled 03/15/25 by Juan Manuel Sen PA-C albuterol sulfate 90 mcg/actuation 1 inh inhalation QID PRN albuterol sulfate 90 mcg/actuation 1 inh inhalation QID PRN albuterol sulfate mg inhalation Q4H PRN budesonide-formoterol 160-4.5 mcg/actuation (Symbicort) inhalation ibuprofen 800 mg PO Q8H PRN inhalational spacing device (OptiChamber Lorena VHC spacer) As directed levothyroxine (Synthroid) 25 mcg PO DAILY HPI HPI OV-Left distal fibular fracture, DOI 02/18/25: Details: 49-year-old female returns to the office today for distal fibular fracture date of injury 02/18/2025. She was placed in a cast nonweightbearing at her last visit and she decided to not have surgical intervention. She states the cast is a bit loose as her swelling has gone down and she denies pain. 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 Sensation intact. Office Procedures AMB Fracture Care Fracture Billing Code: Fracture Billing Code Casting/Splints 31172-Sgvss Leg Cast Application Procedure code (CPT) selection complete Results Reviewed Results Reviewed: X-rays of the left ankle obtained in the office today through the cast show distal fibular fracture with intact ankle mortise Assessment & Plan Assessment & Plan (1) Closed left ankle fracture: Code(s): S82.892A - Other fracture of left lower leg, initial encounter for closed fracture Category: Medical Plan: Imaging through the cast does demonstrate a stable ankle fracture. We will continue to treat this nonoperatively with a cast nonweightbearing. The patient was placed in a new short-leg cast today as her previous cast was loose. I did explain she may have some posttraumatic arthritis as a result to this injury which she does understand. She will see me back in 4 weeks with cast off and new x-rays, sooner if needed. Orders: Orders XR ankle LT min 3V Today M25.572 - Pain in left ankle and joints of left foot Coding Level of Care Code Global (22176) Diagnoses Closed left ankle fracture S82.892A CPT Codes Fracture Care - Fracture Billing Code: Fracture Billing Code ([id number]) Casting - CPT: 39257-Tkatx Leg Cast Application ([id number])
== END 2025-03-15 15:13 | disposition home or self-care (01) ==
LOC: HO.HOS 09:51
PROVIDERS: PCP Registered Nurse; Visit Provider Physician Assistant
DX: S82.892A Other fracture of left lower leg, initial encounter for closed fracture (principal)
CPT/HCPCS: 27786; 29405; 99024

== ENCOUNTER → 2025-03-15 10:05 | Outpatient (BNV) | payer SELFPAY | PROVIDERS: Visit Provider Radiology Diagnostic Radiology | DX: S82.432 Displaced oblique fracture of shaft of left fibula (principal) | CPT/HCPCS: 73610 ==

== ENCOUNTER 2025-04-17 | Outpatient (REF) | payer SELFPAY ==
--- NOTE | ~2025-04-17 | XR_ITS ---
EXAMINATION: XR ANKLE, LEFT CLINICAL INFORMATION: M25.572 - Pain in left ankle and joints of left foot COMPARISON: March 15, 2025 TECHNIQUE: AP, lateral, and mortise views of the left ankle. FINDINGS: Status post removal of the fiberglass cast. Minimal callus formation along the fracture distal fibula. Soft tissue edema pattern, bimalleolar. No subcutaneous emphysema. XR/XR ankle LT min 3V IMPRESSION: Minimal healing fracture, distal fibula. Soft tissue edema pattern, bimalleolar. Electronically signed by: Mau aWrren MD 04/17/2025 09:09 AM EDT
--- OUTSIDE RECORDS SUMMARY | 2025-05-13 10:02 | XMS_ITS | Clinical Summary ---
Author Organization [employer] Address [address] [facility] 7t [place] [address] Care Team Providers Care Pearl Restorer Name Role Phone Keara Carbajal MD Primary Care Provider [phone] Allergies Active Allergy Reactions Criticality Noted Date Comments Methylprednisolone Anaphylaxis High 10/21/2023 Shellfish Protein-Containing Drug Products 07/06/2013 Medications cetirizine (ZyrTEC) 10 MG tablet Take [...] EDT): Patient prefers to be seen at [facility] Chronic sinusitis 06/16/2015 Moderate persistent asthma with [...] Allergic rhinitis 07/06/2013 History of drug abuse ([facility]) 07/06/2013 Mixed anxiety and depressive disorder 07/06/2013 Tobacco dependence syndrome 07/06/2013 Encounters Date Type Department Care Team Description 02/18/2025 Orders Only [facility] External Provider, [facility] from Last 3 Months Immunizations Immunization Administration [...] PM EDT Narrative 02/18/2025 3:24 PM EDT [place] [address] CT Scan Report Signed Patient: Alena Napier MR#: [id number] : 1975 Acct:[id number] Age/Sex: 49 / F ADM Date: 02/18/25 Loc: HO.ED Attending Dr: Ordering Physician: Giselle Gtz CNP Date of Service: 02/18/25 Procedure(s): CT cervical spine wo IV con Accession Number(s): [id number] cc: Giselle Gtz CNP; Keara Carbajal Report Number: [id number]: Total DLP = 365.00 mGy-cm EXAMINATION: CT [...] 02/18/25 1521 DD/ 1442 TD/TT: 02/18/25 1514 Communications Technician: Procedure Note Donotuseinterpreter, Image - 02/18/[address] [address] [address] Scan Report Signed Patient: Alena Napire JMR#: [id number] : 1975Acct:[id number] Age/Sex: 49 / FADM Date: 02/18/25 Loc: HO.ED Attending Dr: Ordering Physician: Giselle Gtz CNP Date of Service: 02/18/25 Procedure(s): CT cervical spine wo IV con Accession Number(s): [id number] cc: Giselle Gtz CNP; Keara Carbajal Report Number: [id number]: Total DLP = 365.00 mGy-cm EXAMINATION: CT [...] 02/18/25 1521 DD/ 1442 TD/TT: 02/18/25 1514 Communications Technician: [facility] External Provider IMG CT PROCEDURES Final Result * CT Head w/o Contrast (02/18/2025 2:42 PM EDT) Anatomical Region Laterality Modality Head, Neck Computed Tomogra phy 02/18/2025 2:42 PM EDT Narrative 02/18/2025 3:26 PM EDT [address] [address] [address] Scan Report Signed Patient: Alena Napier MR#: [id number] : 1975 Acct:[id number] Age/Sex: 49 / F ADM Date: 02/18/25 Loc: HO.ED Attending Dr: Ordering Physician: Giselle Gtz CNP Date of Service: 02/18/25 Procedure(s): CT head/brain wo IV con Accession Number(s): [id number] cc: Giselle Gtz CNP; Keara Carbajal Report Number: [id number]: Total DLP = 684.00 mGy-cm EXAMINATION: CT [...] 02/18/25 1523 DD/ 1442 TD/TT: 02/18/25 1514 Communications Technician: Procedure Note Donotuseinterpreter, Image - 02/18/[address] [address] [address] Scan Report Signed Patient: Alena Napier JMR#: [id number] : 1975Acct:[id number] Age/Sex: 49 / FADM Date: 02/18/25 Loc: HO.ED Attending Dr: Ordering Physician: Giselle Gtz CNP Date of Service: 02/18/25 Procedure(s): CT head/brain wo IV con Accession Number(s): [id number] cc: Giselle Gtz CNP; Keara Carbajal Report Number: [id number]: Total DLP = 684.00 mGy-cm EXAMINATION: CT [...] Tommie Baca MD 02/18/2025 03:23 PM EDT RP Dictated By: Tommie Baca MD Signed By: <Electronically signed by Tommie Baca MD in OV> 02/18/25 1523 DD/ 1442 TD/TT: 02/18/25 1514 Communications Technician: [facility] External Provider IMG CT PROCEDURES Final Result * BI Mammogram Screening Tomosynthesis Bilateral (08/25/2023 9:25 AM EST) Anatomical Region Laterality Modality Breast Bilateral Mammography 08/25/2023 9:25 AM EST Narrative 09/06/2023 7:52 AM EST [address] [place] [address] Mammography Report Signed Patient: Alena Napier MR#: [id number] : 1975 Acct:[id number] Age/Sex: 48 / F ADM Date: 08/25/23 Loc: HO.MAMMO Attending Dr: Keara Carbajal MD Ordering Physician: Keara Carbajal Results: 1Negative Date of Service: 08/25/23 Follow Up: 1 Year From Orig inal Mammogram Procedure(s): MM tomosynthesis screening BI Accession Number(s): [id number] cc: Keara Carbajal EXAMINATION: MM SCREENING DIGITAL [...] MD in OV> 09/06/2349 DD/ 4 TD/TT: Communications Technician: Procedure Note Donotuseinterpreter, Image - 09/06/2023 [facility] [address] [place], [place] [address] Mammography Report Signed Patient: Alena Napier JMR#: [id number] : 1975Acct:[id number] Age/Sex: 48 / FADM Date: 08/25/23 Loc: GARRETT Attending Dr: Keara Carbajal MD Ordering Physician: Brittany Carbajalults: 1Negative Date of Service: 08/25/23Follow Up: 1 Year From Orig inal Mammogram Procedure(s): MM tomosynthesis screening BI Accession Number(s): [id number] cc: Keara Carbajal EXAMINATION: MM SCREENING DIGITAL [...] in OV> 09/06/23 0749 DD/ 4 TD/TT: Communications Technician: us Keara Carbajal MD IMG BI PROCEDURES Edited Resul t - Final * HPV mRNA E6/E7 (07/19/2019 9:20 AM EST) HPV mRNA E6/E7 Not Detected NOT DETECTED [email or web address] Comment: This test was performed using the APTIMA(R) HPV Assay ([employer] This assay detects E6/E7 viral messenger RNA (mRNA) from 14 high-risk HPV types (16,18,31,33,35,39,45,51, 52,56,58,59,66,68). For additional information please refer to: http://education.[employer]/faq/UFI967h9 (This link is being provided for informational/ educational purposes only.) The analytical performance characteristics of this assay have been determined by [employer] [place], [place]. The modifications have not been cleared or approved by the FDA. This assay has been validated pursuant to the CLIA regulations and is used for clinical purposes. Test Performed by [facility], [facility] Roberto A[facility]on, [address] [place] [address] Meño Echeverria M.D., Ph.D., Director of Laboratories , CLIA [id number] Please note: Effective 04/12/2016, HPV testing will be performed using [employer]'s APTIMA test which targets mRNA. Detecting mRNA instead of DNA, as in older methods, offers significant improvements in specificity. 07/19/2019 9:20 AM EST us Alessandra Floyd CNM HISTORICAL/NON ORDERABLE LABS Final Result [email or web address] [address] from Last 3 Months or Most Recently Relevant to Health Maintenance Insurance [facility] C3 Care Teams Pearl Restorer Relationship Specialty Start Date End Date Keara Carbajal MD [address] [place] [address] [place] [address] PCP - General Family Medicine 03/31/20
--- OUTSIDE RECORDS SUMMARY | 2025-05-13 10:02 | XMS_ITS | Encounter Summary ---
Author Organization [employer] Address [address] [facility] 7t [place] [address] Care Team Providers Care Clinical Investigator Name Role Phone Keara Carbajal MD Primary Care Provider [phone] Encounter Details Date Type Department Care Team (Late st Contact Info) Description 09/10/2022 Abstract [facility] MEDICINE [address] [place] [address] Provider, MD [place] Social History Tobacco Use [...] on filedocumented in this encounter Care Teams Clinical Investigator Relationship Specialty Start Date End Date Keara Carbajal MD [address] [place] [address] PCP - General Family Medicine 03/31/20 documented as of this encounter
--- OUTSIDE RECORDS SUMMARY | 2025-05-13 10:02 | XMS_ITS | Encounter Summary ---
Author Organization [employer] Address [address] [place] [address] 7t [place] [address] Care Team Providers Care Flask Maker Name Role Phone Keara Carbajal MD Primary Care Provider [phone] Encounter Details Date Type Department Care Team (Late st Contact Info) Description 09/17/2022 Abstract [facility] MEDICINE [address] [place], [place] [phone] Keara Carbajal MD [address] [place] [address] Social History Tobacco Use Types Packs/Day Years [...] on filedocumented in this encounter Care Teams Flask Maker Relationship Specialty Start Date End Date Keara Carbajal MD [address] [place], [place] [phone] PCP - General Family Medicine 03/31/20 documented as of this encounter
--- OUTSIDE RECORDS SUMMARY | 2025-05-13 10:02 | XMS_ITS | Clinical Summary ---
Author Organization [facility] Address [address] [place] [address] Care Team Providers Care Furniture Rental Consultant Name Role Phone Unavailable Primary Care Provider [...]
== END 2025-04-17 00:01 | disposition home or self-care (01) ==
LOC: HO.HOSX
PROVIDERS: Visit Provider Physician Assistant
DX: S82.892D Other fracture of left lower leg, subsequent encounter for closed fracture with routine healing (principal); X58.XXXD Exposure to other specified factors, subsequent encounter
CPT/HCPCS: 73610; 99212

== ENCOUNTER 2025-04-17 08:42 | Outpatient (AMB) | payer SELFPAY ==
--- NOTE | 2025-04-17 09:02 | A.OFFVIS_ITS ---
Intake Visit Reasons: OV-Left distal fibular fracture, DOI 02/18/25 Intake Note: Alena is a 49 year old female who presents today for a follow up of left distal fibular fracture, DOI 02/18/25. At patient last visit imaging was obtained through cast and instructed to follow up in 4 weeks with x-rays. Patient reports she is doing well, she does not have any pain. She has concerns of ongoing swelling at her toes. Allergies methylprednisolone (From Solu-Medrol) Allergy (Severe, Verified 03/15/25 10:19) Hives Iodinated Contrast Media (IV CONTRAST) Allergy (Intermediate, Verified 03/15/25 10:19) RASH pollen extracts (POLLEN) Allergy (Unknown, Verified 03/15/25 10:19) ITCHY, WATERY EYES, SNEEZING Medication List - Last Reconciled 04/17/25 by Juan Manuel Sen PA-C albuterol sulfate 90 mcg/actuation 1 inh inhalation QID PRN albuterol sulfate 90 mcg/actuation 1 inh inhalation QID PRN albuterol sulfate mg inhalation Q4H PRN budesonide-formoterol 160-4.5 mcg/actuation (Symbicort) inhalation ibuprofen 800 mg PO Q8H PRN inhalational spacing device (OptiChamber Lorena C spacer) As directed levothyroxine (Synthroid) 25 mcg PO DAILY HPI HPI OV-Left distal fibular fracture, DOI 02/18/25: Details: 49-year-old female returns to the office today proximally 6 weeks status post left distal fibular fracture. She has been nonweightbearing in a cast. She states since she has been in the cast her pain has been very minimal. No concerns today. 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 No pain over the syndesmosis. Neurovascularly intact. Results Reviewed Results Reviewed: X-rays of the left ankle obtained in the office today and reviewed by me show stable fracture with ankle mortise intact. Interval healing noted. Assessment & Plan Assessment & Plan (1) Closed left ankle fracture: Code(s): S82.892A - Other fracture of left lower leg, initial encounter for closed fracture Category: Medical Plan: The patient can begin weight-bearing as tolerated with a tall boot. The patient has her own boot which she did bring with her. I would like to see her back in 1 week to re-x-ray the ankle and ensure stability. I did explain given the nature of the fracture there was a risk the syndesmosis was disrupted and with weight-bearing this could cause collapse if unstable. She does express understanding and will see me back in 1 week for x-rays, sooner if needed. Orders: Orders XR ankle LT min 3V Today M25.572 - Pain in left ankle and joints of left foot Coding Level of Care Code Global (79411) Diagnoses Closed left ankle fracture S82.892A
--- OUTSIDE RECORDS SUMMARY | 2025-04-17 10:08 | XMS_ITS | Clinical Summary ---
Author Organization [employer] Address [address] [facility] 7t [place] [address] Care Team Providers Care Crushing Mill Operator Name Role Phone Keara Carbajal MD Primary Care Provider [phone] Allergies Active Allergy Reactions Criticality Noted Date [...] Department Care Team Description 02/18/2025 Orders Only [facility] External Provider, [facility] from Last 3 Months Immunizations Immunization [...] Zoster Vaccines (2 of 2) 11/12/2023 09/17/2023 Cervical Cancer Screening 07/19/2024 HPV/Cotest 07/19/2024 07/19/2019 Mammogram 08/25/2024 08/25/2023, 02/0 04/2023, 09/09/2022, Additional history exists DTaP/Tdap/Td Vaccines (2 - Td or Tdap) 09/18/2024 09/18/2014, 01/06/2004 Depression Screening 11/27/2024 11/28/2023, 11/28/19 24 SDOH Screening 11/27/2024 11/28/2023 Tobacco Screening 11/27/2024 11/28/2023 COVID-19 Vaccine ( season) 2025 10/14/2020, 09/16/2020 Influenza Vaccine (#1) 2025 , 05/16/2019, 06/16/2015, [...] PM EDT Narrative 02/18/2025 3:24 PM EDT [place] [address] CT Scan Report Signed Patient: Alena Napier MR#: [id number] : 1975 Acct:[id number] Age/Sex: 49 / F ADM Date: 02/18/25 Loc: HO.ED Attending Dr: Ordering Physician: Giselle Gtz CNP Date of Service: 02/18/25 Procedure(s): CT cervical spine wo IV con Accession Number(s): [id number] cc: Giselle Gtz CNP; Keara Carbajal Report Number: [id number]: Total DLP = 365.00 mGy-cm EXAMINATION: CT [...] 02/18/25 1521 DD/ 1442 TD/TT: 02/18/25 1514 Test Desk Supervisor: Procedure Note Donotuseinterpreter, Image - 02/18/[address] [address] [address] Scan Report Signed Patient: Alena Napier JMR#: [id number] : 1975Acct:[id number] Age/Sex: 49 / FADM Date: 02/18/25 Loc: HO.ED Attending Dr: Ordering Physician: Giselle Gtz CNP Date of Service: 02/18/25 Procedure(s): CT cervical spine wo IV con Accession Number(s): [id number] cc: Giselle Gtz CNP; Solomon,Keara Report Number: [id number]: Total DLP = 365.00 mGy-cm EXAMINATION: CT [...] 02/18/25 1521 DD/ 1442 TD/TT: 02/18/25 1514 Test Desk Supervisor: us [facility] External Provider IMG CT PROCEDURES Final Result * CT Head w/o Contrast (02/18/2025 2:42 PM EDT) Anatomical Region Laterality Modality Head, Neck Computed Tomogra phy 02/18/2025 2:42 PM EDT Narrative 02/18/2025 3:26 PM EDT [address] [address] [address] Scan Report Signed Patient: Alena Napier MR#: [id number] : 1975 Acct:[id number] Age/Sex: 49 / F ADM Date: 02/18/25 Loc: HO.ED Attending Dr: Ordering Physician: Giselle Gtz CNP Date of Service: 02/18/25 Procedure(s): CT head/brain wo IV con Accession Number(s): [id number] cc: Giselle Gtz CNP; [place] Report Number: [id number]: Total DLP = 684.00 mGy-cm EXAMINATION: CT [...] 02/18/25 1523 DD/ 1442 TD/TT: 02/18/25 1514 Test Desk Supervisor: Procedure Note Donotuseinterpreter, Image - 02/18/[address] [address] [address] Scan Report Signed Patient: Alena Napier JMR#: [id number] : 1975Acct:[id number] Age/Sex: 49 / FADM Date: 02/18/25 Loc: HO.ED Attending Dr: Ordering Physician: Giselle Gtz CNP Date of Service: 02/18/25 Procedure(s): CT head/brain wo IV con Accession Number(s): [id number] cc: Giselle Gtz CNP; Keara Cabrajal Report Number: [id number]: Total DLP = 684.00 mGy-cm EXAMINATION: CT [...] 02/18/25 1523 DD/ 1442 TD/TT: 02/18/25 1514 Test Desk Supervisor: [facility] External Provider IMG CT PROCEDURES Final Result * BI Mammogram Screening Tomosynthesis Bilateral (08/25/2023 9:25 AM EST) Anatomical Region Laterality Modality Breast Bilateral Mammography 08/25/2023 9:25 AM EST Narrative 09/06/2023 7:52 AM EST [address] [place] [address] Mammography Report Signed Patient: Alena Napier MR#: [id number] : 1975 Acct:[id number] Age/Sex: 48 / F ADM Date: 08/25/23 Loc: .MAMMO Attending Dr: Keara Carbajal MD Ordering Physician: Keara Carbajal Results: 1Negative Date of Service: 08/25/23 Follow Up: 1 Year From Orig ina Mammogram Procedure(s): MM tomosynthesis screening BI Accession Number(s): [id number] cc: Keara Carbajal EXAMINATION: MM SCREENING DIGITAL [...] MD in OV> 09/06/2349 DD/ 4 TD/TT: Test Desk Supervisor: Procedure Note Donotdeondreinterpreter, Image - 09/06/2023 [facility] [address] [place] [address] Mammography Report Signed Patient: Alena Napier JMR#: [id number] : 1975Acct:[id number] Age/Sex: 48 / FADM Date: 08/25/23 Loc: GARRETT Attending Dr: Keara Carbajal MD Ordering Physician: Brittany Carbajalults: 1Negative Date of Service: 08/25/23Follow Up: 1 Year From Orig inal Mammogram Procedure(s): MM tomosynthesis screening BI Accession Number(s): [id number] cc: Keara Carbajal EXAMINATION: MM SCREENING DIGITAL [...] in OV> 09/06/23 0749 DD/ 4 TD/TT: Test Desk Supervisor: Keara Carbajal MD IMG BI PROCEDURES Edited Resul t - Final * HPV mRNA E6/E7 (07/19/2019 9:20 AM EST) HPV mRNA E6/E7 Not Detected NOT DETECTED [facility] Comment: This test was performed using the APTIMA(R) HPV Assay ([employer] This assay detects E6/E7 viral messenger RNA (mRNA) from 14 high-risk HPV types (16,18,31,33,35,39,45,51, 52,56,58,59,66,68). For additional information please refer to: http://education.Direct Sitters/faq/KBI956q9 (This link is being provided for informational/ educational purposes only.) The analytical performance characteristics of this assay have been determined by [employer] [place], [place]. The modifications have not been cleared or approved by the FDA. This assay has been validated pursuant to the CLIA regulations and is used for clinical purposes. Test Performed by [employer] [facility], [employer] [place], [address] [place] [address] Meño Echeverria M.D., Ph.D., Director of Laboratories , CLIA [id number] Please note: Effective 04/12/2016, HPV testing will be performed using [employer]'s APTIMA test which targets mRNA. Detecting mRNA instead of DNA, as in older methods, offers significant improvements in specificity. 07/19/2019 9:20 AM EST us Alessandra Floyd CNM HISTORICAL/NON ORDERABLE LABS Final Result [facility] [address] from Last 3 Months or Most Recently Relevant to Health Maintenance Insurance [facility] C3 Care Teams Crushing Mill Operator Relationship Specialty Start Date End Date Keara Carbajal MD [address] [place] [address] [place] [address] PCP - General Family Medicine 03/31/20
--- OUTSIDE RECORDS SUMMARY | 2025-04-17 10:08 | XMS_ITS | Encounter Summary ---
Author Organization [employer] Address [address] [facility] 7t [place] [address] Care Team Providers Care Cycle Specialist Name Role Phone Keara Carbajal MD Primary Care Provider [phone] Encounter Details Date Type Department Care Team (Late st Contact Info) Description 09/10/2022 Abstract [facility] MEDICINE [address] [place] [address] Provider, MD Edelmira Social History Tobacco Use [...] on filedocumented in this encounter Care Teams Cycle Specialist Relationship Specialty Start Date End Date Keara Carbajal MD [address] [place] [address] PCP - General Family Medicine 03/31/20 documented as of this encounter
--- OUTSIDE RECORDS SUMMARY | 2025-04-17 10:08 | XMS_ITS | Encounter Summary ---
Author Organization [employer] Address [address] [place] [address] 7t [place] [address] Care Team Providers Care Freezer Tunnel Operator Name Role Phone Keara Carbajal MD Primary Care Provider [phone] Encounter Details Date Type Department Care Team (Late st Contact Info) Description 09/17/2022 Abstract [facility] MEDICINE [address] [place], [place] [phone] Keara Carbajal MD [address] [place] [address] Social History Tobacco Use Types Packs/Day Years [...] on filedocumented in this encounter Care Teams Freezer Tunnel Operator Relationship Specialty Start Date End Date Keara Carbajal MD [address] [place], [place] [phone] PCP - General Family Medicine 03/31/20 documented as of this encounter
--- OUTSIDE RECORDS SUMMARY | 2025-04-17 10:08 | XMS_ITS | Clinical Summary ---
Author Organization [facility] Address [address] [place] [address] Care Team Providers Care Drug Clerk Name Role Phone Unavailable Primary Care Provider [...] Vaccine (1 of 2) 2023 COVID-19 Vaccine (1 - 2023- season) 2025
== END 2025-04-17 09:29 | disposition home or self-care (01) ==
LOC: HO.HOS 08:43
PROVIDERS: PCP Registered Nurse; Visit Provider Physician Assistant
DX: S82.892A Other fracture of left lower leg, initial encounter for closed fracture (principal)
CPT/HCPCS: 99024

== ENCOUNTER → 2025-04-17 08:44 | Outpatient (BNV) | payer SELFPAY | PROVIDERS: Visit Provider Radiology Diagnostic Radiology | DX: M25.572 Pain in left ankle and joints of left foot (principal) | CPT/HCPCS: 73610 ==

== ENCOUNTER 2025-04-24 | Outpatient (REF) | payer SELFPAY ==
--- NOTE | ~2025-04-24 | XR_ITS ---
CLINICAL HISTORY: M25.572 - Pain in left ankle and joints of left foot 3 view left ankle Comparison: DX/SR - XR ANKLE 3 OR MORE VIEWS LEFT - 04/17/25 08:44 EDT DX/SR - XR ANKLE 3 OR MORE VIEWS LEFT - 03/15/25 10:05 EDT DX/SR - XR ANKLE 3 OR MORE VIEWS LEFT - 02/28/25 14:32 EDT Findings: No significant change in alignment and mildly displaced fracture of the distal fibula. There is mild adjacent callus formation indicative of early healing. The fracture line remains evident. 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 No significant loss of joint space, osteophytes, or erosions. No ankle effusion. No radiopaque foreign body. There is soft tissue swelling. IMPRESSION: No significant change in alignment and mildly displaced fracture of the distal fibula. There is mild adjacent callus formation indicative of early healing. The fracture line remains evident. This document has been electronically signed by: Micah Kendrick DO on 04/25/2025 14:02:41
== END 2025-04-24 00:01 | disposition home or self-care (01) ==
LOC: HO.HOSX
PROVIDERS: Visit Provider Physician Assistant
DX: S82.892D Other fracture of left lower leg, subsequent encounter for closed fracture with routine healing (principal); X58.XXXD Exposure to other specified factors, subsequent encounter
CPT/HCPCS: 73610; 99212

== ENCOUNTER 2025-04-24 11:02 | Outpatient (AMB) | payer SELFPAY ==
--- NOTE | 2025-04-24 11:06 | MHC.OFFVIS ---
Vital Signs 04/24/25 11:20 Height 5 ft 7 in Weight 180 lb BMI 28.2 Intake Visit Reasons: OV-Left distal fibular fracture, DOI 02/18/25 Intake Note: Alena is a 49 year old female who presents today for a follow up of left distal fibular fracture, DOI 02/18/25. At her last visit she was placed in a walking boot, she was instructed to follow up in 1 week with repeat x-ray to ensure stability. Patient reports she is doing well, states mild discomfort with ambulation and her toes become numb. Allergies methylprednisolone (From Solu-Medrol) Allergy (Severe, Verified 04/24/25 11:20) Hives Iodinated Contrast Media (IV CONTRAST) Allergy (Intermediate, Verified 04/24/25 11:20) RASH pollen extracts (POLLEN) Allergy (Unknown, Verified 04/24/25 11:20) ITCHY, WATERY EYES, SNEEZING Medication List - Last Reconciled 04/24/25 by Juan Manuel Sen PA-C albuterol sulfate 90 mcg/actuation 1 inh inhalation QID PRN albuterol sulfate 90 mcg/actuation 1 inh inhalation QID PRN albuterol sulfate mg inhalation Q4H PRN budesonide-formoterol 160-4.5 mcg/actuation (Symbicort) inhalation ibuprofen 800 mg PO Q8H PRN inhalational spacing device (OptiChamber Lorena C spacer) As directed levothyroxine (Synthroid) 25 mcg PO DAILY HPI HPI OV-Left distal fibular fracture, DOI 02/18/25: Details: 50-year-old female returns to the office today 1 week follow-up left distal fibular fracture date of injury 02/18/2025. She saw me last week and I transitioned her to a tall walking boot weightbearing as tolerated. I wanted her to return today for repeat x-rays to check stability. Patient states there is no worsening pain just mild discomfort occasionally. 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 No pain over the syndesmosis. Neurovascularly intact. Results Reviewed Results Reviewed: X-rays of the left ankle obtained in the office today and reviewed by me show stable fracture with ankle mortise intact. Interval healing noted. Assessment & Plan Assessment & Plan (1) Closed left ankle fracture: Code(s): S82.892A - Other fracture of left lower leg, initial encounter for closed fracture Category: Medical Plan: Ankle continues to remain stable. She will continue with the boot weightbearing as tolerated and I will place an order for physical therapy where she will call and make an appointment. She will work on gentle range of motion strength and proprioceptive training. She will see me back in 6 weeks with x-rays, sooner if needed. Orders: Orders XR ankle LT min 3V Today M25.572 - Pain in left ankle and joints of left foot Coding Level of Care Code Global (97560) Diagnoses Closed left ankle fracture S82.892A
[2025-04-24 11:20] VITALS: BMI 28.2
--- OUTSIDE RECORDS SUMMARY | 2025-04-24 14:13 | XMS_ITS | Encounter Summary ---
Author Organization [employer] Address [address] [facility] 7t [place] [address] Care Team Providers Care Bus And Trolley Dispatcher Name Role Phone Keara Carbajal MD Primary Care Provider Encounter Details Date Type Department Care Team (Late st Contact Info) Description 09/10/2022 Abstract [facility] MEDICINE [address] [place] [address] Provider, MD [place] Social History Tobacco Use [...] on filedocumented in this encounter Care Teams Bus And Trolley Dispatcher Relationship Specialty Start Date End Date Keara Carbajal MD [address] [place] [address] PCP - General Family Medicine 03/31/20 documented as of this encounter
--- OUTSIDE RECORDS SUMMARY | 2025-04-24 14:13 | XMS_ITS | Clinical Summary ---
Author Organization [facility] Address [address] [place] [address] Care Team Providers Care Radiologic Technologist Chief Name Role Phone Unavailable Primary Care Provider [...]
--- OUTSIDE RECORDS SUMMARY | 2025-04-24 14:13 | XMS_ITS | Encounter Summary ---
Author Organization [employer] Address [address] [place] [address] 7t [place] [address] Care Team Providers Care Traffic Attendant Name Role Phone Keara Carbajal MD Primary Care Provider [phone] Encounter Details Date Type Department Care Team (Late st Contact Info) Description 09/17/2022 Abstract [facility] MEDICINE [address] [place], [place] [phone] Keara Carbajal MD [address] [place] [address] Social History Tobacco Use Types Packs/Day Years [...] on filedocumented in this encounter Care Teams Traffic Attendant Relationship Specialty Start Date End Date Keara Carbjaal MD [address] [place], [place] [phone] PCP - General Family Medicine 03/31/20 documented as of this encounter
--- OUTSIDE RECORDS SUMMARY | 2025-04-24 14:13 | XMS_ITS | Clinical Summary ---
Author Organization [employer] Address [address] [facility] 7t [place] [address] Care Team Providers Care Lime Hide Inspector Name Role Phone Keara Carbajal MD Primary Care Provider [phone] Allergies Active Allergy Reactions Criticality Noted Date [...] EDT): Patient [place] be [place] [facility] Chronic sinusitis 06/16/2015 Moderate persistent asthma with [...] Department Care Team Description 02/18/2025 Orders Only [facility] External Provider, [facility] from Last 3 Months Immunizations [...] PM EDT Narrative 02/18/2025 3:24 PM EDT [place] [address] [place] Scan Report Signed Patient: Alena Napier MR#: [id number] : 1975 Acct:[id number] Age/Sex: 49 / F ADM Date: 02/18/25 Loc: HO.ED Attending Dr: Ordering Physician: Giselle Gtz CNP Date of Service: 02/18/25 Procedure(s): CT cervical spine wo IV con Accession Number(s): [id number] cc: Giselle Gtz CNP; Keara Carbajal Report Number: [id number]: Total DLP = 365.00 mGy-cm EXAMINATION: CT [...] 02/18/25 1521 DD/ 1442 TD/TT: 02/18/25 1514 Records Administrator: Procedure Note Donotuseinterpreter, Image - 02/18/[address] [address] [address] Scan Report Signed Patient: Alena Napier JMR#: [id number] : 1975Acct:[id number] Age/Sex: 49 / FADM Date: 02/18/25 Loc: HO.ED Attending Dr: Ordering Physician: Giselle Gtz CNP Date of Service: 02/18/25 Procedure(s): CT cervical spine wo IV con Accession Number(s): [id number] cc: Giselle Gtz CNP; [place],Keara Report Number: [id number]: Total DLP = 365.00 mGy-cm EXAMINATION: CT [...] 02/18/25 1521 DD/ 1442 TD/TT: 02/18/25 1514 Records Administrator: us [facility] External Provider IMG CT PROCEDURES Final Result * CT Head w/o Contrast (02/18/2025 2:42 PM EDT) Anatomical Region Laterality Modality Head, Neck Computed Tomogra phy 02/18/2025 2:42 PM EDT Narrative 02/18/2025 3:26 PM EDT [address] [address] [address] Scan Report Signed Patient: Alena Napier MR#: [id number] : 1975 Acct:[id number] Age/Sex: 49 / F ADM Date: 02/18/25 Loc: HO.ED Attending Dr: Ordering Physician: Giselle Gtz CNP Date of Service: 02/18/25 Procedure(s): CT head/brain wo IV con Accession Number(s): [id number] cc: Giselle Gtz CNP; HostetterKeara Report Number: [id number]: Total DLP = 684.00 mGy-cm EXAMINATION: CT [...] 02/18/25 1523 DD/ 1442 TD/TT: 02/18/25 1514 Records Administrator: Procedure Note Donotuseinterpreter, Image - 02/18/[address] [address] [address] Scan Report Signed Patient: Alena Napier JMR#: [id number] : 1975Acct:[id number] Age/Sex: 49 / FADM Date: 02/18/25 Loc: HO.ED Attending Dr: Ordering Physician: Giselle Gtz CNP Date of Service: 02/18/25 Procedure(s): CT head/brain wo IV con Accession Number(s): [id number] cc: Giselle Gtz CNP; Keara Carbajal Report Number: [id number]: Total DLP = 684.00 mGy-cm EXAMINATION: CT [...] 02/18/25 1523 DD/ 1442 TD/TT: 02/18/25 1514 Records Administrator: [facility] External Provider IMG CT PROCEDURES Final Result * BI Mammogram Screening Tomosynthesis Bilateral (08/25/2023 9:25 AM EST) Anatomical Region Laterality Modality Breast Bilateral Mammography 08/25/2023 9:25 AM EST Narrative 09/06/2023 7:52 AM EST [address] [place] [address] Mammography Report Signed Patient: Alena Napier MR#: [id number] : 1975 Acct:[id number] Age/Sex: 48 / F ADM Date: 08/25/23 Loc: .MAMMO Attending Dr: Keara Carbajal MD Ordering Physician: Keara Carbajal Results: 1Negative Date of Service: 08/25/23 Follow Up: 1 Year From Orig ina Mammogram Procedure(s): MM tomosynthesis screening BI Accession Number(s): [id number] cc: Keara Carbajal EXAMINATION: MM SCREENING DIGITAL [...] MD in OV> 09/06/2349 DD/ 4 TD/TT: Records Administrator: Procedure Note Donotdeondreinterpreter, Image - 09/06/2023 [facility] [address] [place] [address] Mammography Report Signed Patient: Alena Napier JMR#: [id number] : 1975Acct:[id number] Age/Sex: 48 / FADM Date: 08/25/23 Loc: GARRETT Attending Dr: Keara Carbajal MD Ordering Physician: Brittany Carbajalults: 1Negative Date of Service: 08/25/23Follow Up: 1 Year From Orig inal Mammogram Procedure(s): MM tomosynthesis screening BI Accession Number(s): [id number] cc: Keara Carbajal EXAMINATION: MM SCREENING DIGITAL [...] in OV> 09/06/23 0749 DD/ 4 TD/TT: Records Administrator: Keara Carbajal MD IMG BI PROCEDURES Edited Resul t - Final * HPV mRNA E6/E7 (07/19/2019 9:20 AM EST) HPV mRNA E6/E7 Not Detected NOT DETECTED [facility] Comment: This test was performed using the APTIMA(R) HPV Assay ([employer] This assay detects E6/E7 viral messenger RNA (mRNA) from 14 high-risk HPV types (16,18,31,33,35,39,45,51, 52,56,58,59,66,68). For additional information please refer to: http://education.[employer]/faq/THQ240y0 (This link is being provided for informational/ educational purposes only.) The analytical performance characteristics of this assay have been determined by [employer] [place], [place]. The modifications have not been cleared or approved by the FDA. This assay has been validated pursuant to the CLIA regulations and is used for clinical purposes. Test Performed by [facility], cartmi Raymond, [address] [place] [address] Meño Echeverria M.D., Ph.D., Director of Laboratories , CLIA [id number] Please note: Effective 04/12/2016, HPV testing will be performed using [employer]'s APTIMA test which targets mRNA. Detecting mRNA instead of DNA, as in older methods, offers significant improvements in specificity. 07/19/2019 9:20 AM EST us Alessandra Floyd CNM HISTORICAL/NON ORDERABLE LABS Final Result [facility] [address] from Last 3 Months or Most Recently Relevant to Health Maintenance Insurance [facility] C3 Care Teams Lime Hide Inspector Relationship Specialty Start Date End Date Keara Carbajal MD [address] [place] [address] [place] [address] PCP - General Family Medicine 03/31/20
== END 2025-04-24 11:38 | disposition home or self-care (01) ==
LOC: HO.HOS 11:02
PROVIDERS: Visit Provider Physician Assistant
DX: S82.892A Other fracture of left lower leg, initial encounter for closed fracture (principal)
CPT/HCPCS: 99024

== ENCOUNTER → 2025-04-24 11:09 | Outpatient (BNV) | payer SELFPAY | PROVIDERS: Visit Provider Family Medicine | DX: S82.892A Other fracture of left lower leg, initial encounter for closed fracture (principal) | CPT/HCPCS: 73610 ==

== ENCOUNTER 2025-05-29 22:01 | Outpatient (REF) | payer SELFPAY | END 2025-05-29 22:02 | disposition home or self-care (01) | LOC: HO.HOSX 22:01 | PROVIDERS: Visit Provider Physician Assistant | DX: Z13.89 Encounter for screening for other disorder (principal) ==

== ENCOUNTER 2025-06-03 13:58 | Outpatient (REF) | payer SELFPAY ==
--- OUTSIDE RECORDS SUMMARY | 2025-06-03 14:34 | XMS_ITS | Clinical Summary ---
Author Organization [facility] Address [address] [place] [address] Care Team Providers Care Sport Shoe Spike Assembler Name Role Phone Unavailable Primary Care Provider [...] COVID-19 Vaccine (1 - 2023- season) 2025 RSV Vaccine 50 years and old er and Patients (1 - 1-dose 75+ series) 2048
--- OUTSIDE RECORDS SUMMARY | 2025-06-03 14:34 | XMS_ITS | Encounter Summary ---
Author Organization [employer] Address [address] [place] [address] 7t [place] [address] Care Team Providers Care Depilatory Painter Name Role Phone Keara Carbajal MD Primary Care Provider [phone] Encounter Details Date Type Department Care Team (Late st Contact Info) Description 09/17/2022 Abstract [facility] MEDICINE [address] [place], [place] [phone] Keara Carbajal MD [address] [place] [address] Social History Tobacco Use Types Packs/Day Years [...] on filedocumented in this encounter Care Teams Depilatory Painter Relationship Specialty Start Date End Date Keara Carbajal MD [address] [place], [place] [phone] PCP - General Family Medicine 03/31/20 documented as of this encounter
--- OUTSIDE RECORDS SUMMARY | 2025-06-03 14:34 | XMS_ITS | Clinical Summary ---
Author Organization [employer] Address [address] [facility] 7t [place] [address] Care Team Providers Care Telephone Station Installer Name Role Phone Keara Carbajal MD Primary Care Provider [phone] Allergies Active Allergy Reactions Criticality Noted Date [...] of candidiasis. Do not swallow. 1 each Active Active Problems Problem Noted Date Diagnosed Date Screening for cervical cancer 11/29/2023 Assessment & Plan (11/29/2023 9:39 AM EDT): Patient prefers to be seen at [facility] Chronic sinusitis 06/16/2015 Moderate persistent asthma with [...] Allergic rhinitis 07/06/2013 History of drug abuse ([facility]) 07/06/2013 Mixed anxiety and depressive disorder 07/06/2013 Tobacco dependence syndrome 07/06/2013 Immunizations Immunization Administration Dates Next Due Hep [...] 11/28/2023 Tobacco Screening 11/27/2024 11/28/2023 COVID-19 Vaccine (3 - 2024- season) 2025 10/14/2020, 09/16/2020 Influenza Vaccine (#1) [...] Procedure Name Priority Date/Time Associated Diagnosis Comments BI MAMMOGRAM SCREENING TOMOSYNTHESIS BILATERAL Routine 08/25/2023 9:25 AM EST ZZZ HISTORICAL HPV MRNA E6/E7 Routine 07/19/2019 9:20 AM EST from Last 3 Months or Most Recently Relevant to Health Maintenance Results * BI Mammogram Screening Tomosynthesis Bilateral (08/25/2023 9:25 AM EST) Anatomical Region Laterality Modality Breast Bilateral Mammography 08/25/2023 9:25 AM EST Narrative 09/06/2023 7:52 AM EST [facility] [address] [place] [address] Mammography Report Signed Patient: Alena Napier MR#: [id number] : 1975 Acct:[id number] Age/Sex: 48 / F ADM Date: 08/25/23 Loc: HO.MAMMO Attending Dr: Keara Carbajal MD Ordering Physician: Keara Carbajal Results: 1Negative Date of Service: 08/25/23 Follow Up: 1 Year From Orig ina Mammogram Procedure(s): MM tomosynthesis screening BI Accession Number(s): [id number] cc: Keara Carbajal EXAMINATION: MM SCREENING DIGITAL [...] in OV> 09/06/23 0749 DD/ 4 TD/TT: Procedure Analyst: Procedure Note Donotuseinterpreter, Image - 09/06/2023 [facility] [address] [place] [address] Mammography Report Signed Patient: Alena Napier JMR#: [id number] : 1975Acct:[id number] Age/Sex: 48 / FADM Date: 08/25/23 Loc: GARRETT Attending Dr: Keara Carbajal MD Ordering Physician: Brittany Carbajalults: 1Negative Date of Service: 08/25/23Follow Up: 1 Year From Orig inal Mammogram Procedure(s): MM tomosynthesis screening BI Accession Number(s): [id number] cc: Keara Carbajal EXAMINATION: MM SCREENING DIGITAL [...] Avila MD in OV> 09/06/23 0749 DD/ TD/TT: Procedure Analyst: Keara Carbajal MD IMG BI PROCEDURES Edited Resul t - Final * HPV mRNA E6/E7 (07/19/2019 9:20 AM EST) HPV mRNA E6/E7 Not Detected NOT DETECTED [facility] Comment: This test was performed using the APTIMA(R) HPV Assay ([employer] This assay detects E6/E7 viral messenger RNA (mRNA) from 14 high-risk HPV types (16,18,31,33,35,39,45,51, 52,56,58,59,66,68). For additional information please refer to: http://education.Aviary/faq/QTX502v5 (This link is being provided for informational/ educational purposes only.) The analytical performance characteristics of this assay have been determined by [employer] [place], [place]. The modifications have not been cleared or approved by the FDA. This assay has been validated pursuant to the CLIA regulations and is used for clinical purposes. Test Performed by [facility] [employer] [facility], [address] [place] [address] Meño Echeverria M.D., Ph.D., Director of Laboratories , CLIA [id number] Please note: Effective 04/12/2016, HPV testing will be performed using [employer]'s APTIMA test which targets mRNA. Detecting mRNA instead of DNA, as in older methods, offers significant improvements in specificity. 07/19/2019 9:20 AM EST us Alessandra Floyd CNM HISTORICAL/NON ORDERABLE LABS Final Result [facility] [address] from Last 3 Months or Most Recently Relevant to Health Maintenance Insurance [facility] C[facility] Care Teams Telephone Station Installer Relationship Specialty Start Date End Date Keara Carbajal MD [address] [place] [address] [place] [address] PCP - General Family Medicine 03/31/20
--- OUTSIDE RECORDS SUMMARY | 2025-06-03 14:34 | XMS_ITS | Encounter Summary ---
Author Organization [employer] Address [address] [facility] 7t [place] [address] Care Team Providers Care In Flight Refueling System Repairer Name Role Phone Keara Carbajal MD Primary Care Provider [phone] Encounter Details Date Type Department Care Team (Late st Contact Info) Description 09/10/2022 Abstract [facility] MEDICINE [address] [place] [address] Provider, MD [place] Social History Tobacco Use [...] on filedocumented in this encounter Care Teams In Flight Refueling System Repairer Relationship Specialty Start Date End Date Keara Carbajal MD [address] [place] [address] PCP - General Family Medicine 03/31/20 documented as of this encounter
== END 2025-06-03 13:59 | disposition home or self-care (01) ==
LOC: HO.HOSX 13:58
PROVIDERS: Visit Provider Physician Assistant
DX: Z13.89 Encounter for screening for other disorder (principal)

== ENCOUNTER 2025-06-05 08:17 | Outpatient (REF) | payer SELFPAY ==
--- NOTE | ~2025-06-05 | XR_ITS ---
EXAMINATION: XR ANKLE, LEFT CLINICAL INFORMATION: M25.572 - Pain in left ankle and joints of left foot COMPARISON: 04/24/2025, 04/17/2025, 03/15/2025, and dating back to 02/18/2025. TECHNIQUE: AP, lateral, and mortise views of the left ankle. FINDINGS: Mild disuse osteopenia. Redemonstration of a healing oblique fracture of the distal fibula extending to the level of the syndesmosis. Fracture lines are indistinct, and there is bridging bony callus indicating continued healing. No new fracture. The mortise is intact. The talar dome is intact. The subtalar joints and calcaneus appear normal. Improving soft tissue swelling. No ankle joint effusion. XR/XR ankle LT min 3V IMPRESSION: Continued healing of distal fibular fracture in anatomic alignment. Electronically signed by: Tommie Baca MD 06/05/2025 08:57 AM YANDEL
--- OUTSIDE RECORDS SUMMARY | 2025-06-06 08:38 | XMS_ITS | Encounter Summary ---
Author Organization [employer] Address [address] [facility] 7t [place] [address] Care Team Providers Care Set Up Technician Name Role Phone Keara Carbajal MD Primary Care Provider [phone] Encounter Details Date Type Department Care Team (Late st Contact Info) Description 09/10/2022 Abstract [facility] MEDICINE [address] [place] [address] Provider, MD [place] Social History Tobacco Use [...] on filedocumented in this encounter Care Teams Set Up Technician Relationship Specialty Start Date End Date Keara Carbajal MD [address] [place] [address] PCP - General Family Medicine 03/31/20 documented as of this encounter
--- OUTSIDE RECORDS SUMMARY | 2025-06-06 08:38 | XMS_ITS | Encounter Summary ---
Author Organization [employer] Address [address] [place] [address] 7t [place] [address] Care Team Providers Care Radiation Oncology Nurse Name Role Phone Keara Carbajal MD Primary Care Provider [phone] Encounter Details Date Type Department Care Team (Late st Contact Info) Description 09/17/2022 Abstract [facility] MEDICINE [address] [place], [place] [id number] Keara Carbajal MD [address] [place] [address] Social History Tobacco Use Types Packs/Day Years [...] on filedocumented in this encounter Care Teams Radiation Oncology Nurse Relationship Specialty Start Date End Date Keara Carbajal MD [address] [place], [place] [phone] PCP - General Family Medicine 03/31/20 documented as of this encounter
--- OUTSIDE RECORDS SUMMARY | 2025-06-06 08:38 | XMS_ITS | Clinical Summary ---
Author Organization [facility] Address [address] [place] [address] Care Team Providers Care Environmental Protection Geologist Name Role Phone Unavailable Primary Care Provider [...]
--- OUTSIDE RECORDS SUMMARY | 2025-06-06 08:38 | XMS_ITS | Clinical Summary ---
Author Organization [employer] Address [address] [facility] 7t [place] [address] Care Team Providers Care Lockstitch Sleeve Setter Name Role Phone Keara Carbajal MD Primary Care Provider [phone] Allergies Active Allergy Reactions Criticality Noted Date [...] EDT): Patient prefers to be seen at [facility] Chronic sinusitis 06/16/2015 Moderate persistent asthma with [...] Allergic rhinitis 07/06/2013 History of drug abuse ([facility]) 07/06/2013 Mixed anxiety and depressive disorder 07/06/2013 [...] AM EST Narrative 09/06/2023 7:52 AM EST [facility]'s [address] [place] [address] Mammography Report Signed Patient: Alena Napier MR#: [id number] : 1975 Acct:[id number] Age/Sex: 48 / F ADM Date: 08/25/23 Loc: HO.MAMMO Attending Dr: Keara Carbajal MD Ordering Physician: Keara Carbajal Results: 1Negative Date of Service: 08/25/23 Follow Up: 1 Year From Orig ina Mammogram Procedure(s): MM tomosynthesis screening BI Accession Number(s): [id number] cc: Keara Carbajal EXAMINATION: MM SCREENING DIGITAL [...] in OV> 09/06/23 0749 DD/ 4 TD/TT: Financial Quantitative Analyst: Procedure Note Donotuseinterpreter, Image - 09/06/2023 [facility] [address] [place] [address] Mammography Report Signed Patient: Alena Napier JMR#: [id number] : 1975Acct:[id number] Age/Sex: 48 / FADM Date: 08/25/23 Loc: GARRETT Attending Dr: Keara Carbajal MD Ordering Physician: Brittany Carbajalults: 1Negative Date of Service: 08/25/23Follow Up: 1 Year From Orig inal Mammogram Procedure(s): MM tomosynthesis screening BI Accession Number(s): [id number] cc: Keara Carbajal EXAMINATION: MM SCREENING DIGITAL [...] MD in OV> 09/06/23 0749 DD/ TD/TT: Financial Quantitative Analyst: Keara Carbajal MD IMG BI PROCEDURES Edited Resul t - Final * HPV mRNA E6/E7 (07/19/2019 9:20 AM EST) HPV mRNA E6/E7 Not Detected NOT DETECTED [facility] Comment: This test was performed using the APTIMA(R) HPV Assay ([employer] This assay detects E6/E7 viral messenger RNA (mRNA) from 14 high-risk HPV types (16,18,31,33,35,39,45,51, 52,56,58,59,66,68). For additional information please refer to: http://education.Nifty After Fifty/faq/MOX831q8 (This link is being provided for informational/ educational purposes only.) The analytical performance characteristics of this assay have been determined by [employer] [place], [place]. The modifications have not been cleared or approved by the FDA. This assay has been validated pursuant to the CLIA regulations and is used for clinical purposes. Test Performed by [facility], [employer] [facility], [address] [place] [address] Meño Echeverria M.D., Ph.D., Director of Laboratories , CLIA [id number] Please note: Effective 04/12/2016, HPV testing will be performed using [employer]'s APTIMA test which targets mRNA. Detecting mRNA instead of DNA, as in older methods, offers significant improvements in specificity. 07/19/2019 9:20 AM EST us Alessandra Floyd CNM HISTORICAL/NON ORDERABLE LABS Final Result [facility] [address] from Last 3 Months or Most Recently Relevant to Health Maintenance Insurance [facility] C3 Care Teams Lockstitch Sleeve Setter Relationship Specialty Start Date End Date Keara Carbajal MD [address] [place] [address] [place] [address] PCP - General Family Medicine 03/31/20
== END 2025-06-05 08:18 | disposition home or self-care (01) ==
LOC: HO.HOSX 08:17
PROVIDERS: Visit Provider Physician Assistant
DX: S82.892D Other fracture of left lower leg, subsequent encounter for closed fracture with routine healing (principal); M25.572 Pain in left ankle and joints of left foot; X58.XXXD Exposure to other specified factors, subsequent encounter
CPT/HCPCS: 73610; 99212

== ENCOUNTER 2025-06-05 08:34 | Outpatient (AMB) | payer SELFPAY ==
--- NOTE | 2025-06-05 08:38 | MHC.OFFVIS ---
Vital Signs 06/05/25 08:50 Height 5 ft 7 in Weight 180 lb BMI 28.2 Intake Visit Reasons: OV-Left distal fibular fracture, DOI 02/18/25w/xray Intake Note: Alena is a 50 year old female who presents today for a follow up of left distal fibular fracture, DOI 02/18/25. At her last visit she was instructed to continue with boot, weight bearing as tolerated, an order for physical therapy was placed. Follow up in 6 weeks with x-rays. Today patient reports that she continues to have discomfort at the top of her foot and anterior aspect of ankle. Complaints of mild swelling however overall she is doing well. She has not been able to attend physical therapy due to insurance reasons. Allergies methylprednisolone (From Solu-Medrol) Allergy (Severe, Verified 06/05/25 08:52) Hives Iodinated Contrast Media (IV CONTRAST) Allergy (Intermediate, Verified 06/05/25 08:52) RASH pollen extracts (POLLEN) Allergy (Unknown, Verified 06/05/25 08:52) ITCHY, WATERY EYES, SNEEZING HPI HPI OV-Left distal fibular fracture, DOI 02/18/25w/xray: Details: 50-year-old female returns to the office today for a follow-up left distal fibular fracture date of injury 02/18/2025. She has been ambulating with the boot weightbearing as tolerated. She states her pain is improving. She has not started physical therapy due to insurance conflicts. 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 No pain over the syndesmosis. Neurovascularly intact. Results Reviewed Results Reviewed: X-rays of the left ankle obtained in the office today and reviewed by me show stable fracture with ankle mortise intact. Interval healing noted. Assessment & Plan Assessment & Plan (1) Closed left ankle fracture: Code(s): S82.892A - Other fracture of left lower leg, initial encounter for closed fracture Category: Medical Plan: Patient can wean out of the boot and transitioned to a lace-up ankle brace which she will obtain on her own. She will contact physical therapy to begin her strengthening and proprioceptive training exercises. If there is any concerns going forward she will contact our office otherwise follow up as needed. Orders: Orders XR ankle LT min 3V Today M25.572 - Pain in left ankle and joints of left foot Coding Level of Care Code Global (75296) Diagnoses Closed left ankle fracture S82.892A
[2025-06-05 08:50] VITALS: BMI 28.2
--- OUTSIDE RECORDS SUMMARY | 2025-06-05 08:51 | XMS_ITS | Clinical Summary ---
Author Organization [facility] Address [address] [place] [address] Care Team Providers Care Track Coach Name Role Phone Unavailable Primary Care Provider [...]
== END 2025-06-05 09:24 | disposition home or self-care (01) ==
LOC: HO.HOS 08:35
PROVIDERS: PCP General Practice; Visit Provider Physician Assistant
DX: S82.892A Other fracture of left lower leg, initial encounter for closed fracture (principal)
CPT/HCPCS: 99213

== ENCOUNTER → 2025-06-05 08:37 | Outpatient (BNV) | payer SELFPAY | PROVIDERS: Visit Provider Radiology Diagnostic Radiology | DX: S82.832D Other fracture of upper and lower end of left fibula, subsequent encounter for closed fracture with routine healing (principal) | CPT/HCPCS: 73610 ==